=== PATIENT | male | born 1940 | race Caucasian/White ===

== ENCOUNTER 2017-03-18 04:58 | Inpatient (IN) ==
[2017-03-10 14:59] LABS: Blood Urea Nitrogen 15 mg/dl (8-23)
[2017-03-10 15:01] LABS: Appearance,Urine CLEAR; Bilirubin,Urine NEG (NEG); Color,Urine YELLOW; Glucose,Urine (UA) NEGATIVE (NEG); Leukocyte Esterase,Urine NEG /uL (NEG); Nitrate,Urine NEG (NEG); Protein,Urine NEG (NEG); Specific Gravity,Urine 1.017 (1.000-1.035); Urine Blood NEG mg/dL (<0.03); Urobilinogen,Urine NEG (NEG)
[2017-03-10 15:47] LABS: Basophils # (Auto) 0 K/mcL (0.0-0.3); Basophils % (Auto) 0.4 % (0.0-2.0); Eosinophils # (Auto) 0.1 K/mcL (0.0-0.7); Eosinophils % (Auto) 0.9 % (0.0-7.0); Granulocytes % (Auto) 49.2 % (38.0-78.0); Lymphocytes # (Auto) 1.6 K/mcL (1.5-4.8); Lymphocytes % (Auto) 26.9 % (15.5-49.0); Mean Corpuscular HGB Conc 33.9 g/dL (31.0-36.0); Mean Corpuscular Hemoglobin 31.2 pg (26.0-34.0); Monocytes # (Auto) 1.3 K/mcL (0.1-0.9); Monocytes % (Auto) 22.6 % (1.0-12.0); Platelet Count 137 K/mcL (140-440); RBC 4.23 M/mcL (4.50-5.90)
[2017-03-18] MEDS ORDERED: CELECOXIB 200 MG CAPSULE PO SCH (06:00)
[2017-03-18] MEDS ORDERED: ACETAMINOPHEN 500 MG TABLET PO SCH (06:00)
[2017-03-18] MEDS ORDERED: oxyCODONE 10 MG TAB.ER.12H PO SCH (06:00)
[2017-03-18] MEDS ORDERED: PREGABALIN 75 MG CAPSULE PO SCH (06:00)
[2017-03-18] MEDS ORDERED: KETOROLAC 30 MG, ROPIVACAINE HCL/PF 49.5 ML, EPINEPHrine 0.5 MG, 0.9 % SODIUM CHLORIDE ... IJ ONE (07:00)
[2017-03-18] MEDS: ceFAZolin 1 GM VIAL IV SCH ×4 (07:33→23:05)
[2017-03-18] MEDS ORDERED: MIDAZOLAM 5 MG/5 ML VIAL IV ONE (07:45)
[2017-03-18] MEDS ORDERED: ePHEDrine 50 MG/ML AMPUL IV ONE (07:45)
[2017-03-18] MEDS ORDERED: LIDOCAINE HCL/PF 100 MG/5 ML SYRINGE IV ONE (07:45)
[2017-03-18] MEDS ORDERED: ONDANSETRON 4 MG/2 ML VIAL IV ONE (07:45)
[2017-03-18] MEDS ORDERED: fentaNYL 100 MCG/2 ML VIAL IV ONE (07:45)
[2017-03-18] MEDS ORDERED: ROPIVACAINE HCL/PF 20 ML VIAL IJ ONE (07:45)
[2017-03-18] MEDS ORDERED: TRANEXAMIC ACID 1,000 MG/10 ML VIAL IV ONE ×2 (07:45→09:56)
[2017-03-18] MEDS ORDERED: PROPOFOL 200 MG/20 ML VIAL IV ONE (07:45)
[2017-03-18] MEDS ORDERED: DEXAMETHASONE 10 MG/ML VIAL IV ONE (07:45)
[2017-03-18] MEDS ORDERED: GLYCOPYRROLATE 0.2 MG/ML VIAL IV ONE (07:45)
[2017-03-18] MEDS ORDERED: fentaNYL 100 MCG/2 ML VIAL IV PRN (09:38)
[2017-03-18] MEDS ORDERED: MEPERIDINE 25 MG/ML SYRINGE IV PRN (09:38)
[2017-03-18] MEDS ORDERED: BENZOCAINE/MENTHOL 1 LOZENGE PO PRN ×2 (09:38→09:56)
[2017-03-18] MEDS ORDERED: METHOCARBAMOL 1,000 MG/10 ML VIAL IV PRN (09:38)
[2017-03-18] MEDS ORDERED: IPRATROPIUM/ALBUTEROL 3 ML AMPUL.NEB NEB PRN (09:38)
[2017-03-18] MEDS ORDERED: FLUMAZENIL 0.1 MG/ML ML IV PRN (09:38)
[2017-03-18] MEDS ORDERED: ONDANSETRON 4 MG/2 ML VIAL IV PRN ×2 (09:38→09:56)
[2017-03-18] MEDS ORDERED: NALOXONE HCL 0.4 MG/ML VIAL IV PRN (09:38)
[2017-03-18] MEDS ORDERED: diphenhydrAMINE 50 MG/ML VIAL IV PRN (09:38)
[2017-03-18] MEDS ORDERED: LACTATED RINGERS 250 ML IV PRN (09:38)
[2017-03-18] MEDS ORDERED: HYDROmorphone 2 MG/ML SYRINGE IV PRN (09:38)
[2017-03-18] MEDS ORDERED: LACTATED RINGERS 1,000 ML IV SCH (09:45)
[2017-03-18] MEDS ORDERED: POLYETHYLENE GLYCOL 3350 17 GM PACKET PO PRN (09:56)
[2017-03-18] MEDS ORDERED: FLEETS ADULT ENEMA PR PRN (09:56)
[2017-03-18] MEDS ORDERED: MAGNESIUM HYDROXIDE 30 ML ORAL.SUSP PO PRN (09:56)
[2017-03-18] MEDS ORDERED: BISACODYL 10 MG SUPP.RECT PR PRN (09:56)
--- NOTE | 2017-03-18 09:57 | Brief Operative Note ---
Date of procedure: 03/18/17 Pre-op diagnosis: Left knee severe DJD Post-op diagnosis: same Procedure: Left robotic assisted total knee arthroplasty Grafts/Implants: Yes ([place] Triathlon PS 5 femur, 5 tibia, 9mm PS femur) Anesthesia: spinal Findings: arthritis Complications: none Surgeon: Zackary Baer Orthotics Prosthetics Assistant: Harish Pagan Estimated blood loss (cc): 30 Specimens Removed/Pathology: none sent Condition: stable Disposition: PACU
--- NOTE | 2017-03-18 10:47 | XRay Report ---
CLINICAL INFORMATION: Postsurgical follow-up TECHNIQUE: AP, lateral, patellar view COMPARISON: None. FINDINGS: Status post left total knee arthroplasty. Femoral and tibial complements are in anatomic positions. There is postsurgical soft tissue and intra-articular gas IMPRESSION: Status post left total knee arthroplasty Interpreted and Authenticated by: Dallas Dyer 03/18/17
[2017-03-18] MEDS: 0.9 % SODIUM CHLORIDE 10 ML SYRINGE IV SCH (12:24)
[2017-03-18] MEDS: KETOROLAC 30 MG/ML VIAL IV SCH ×2 (12:31→16:57)
[2017-03-18] MEDS: 0.9 % SODIUM CHLORIDE 1,000 ML IV SCH (12:32)
[2017-03-18] MEDS: DOCUSATE SODIUM 100 MG CAPSULE PO SCH (20:41)
[2017-03-18] MEDS: ASPIRIN 325 MG ENTERIC COATED TABLET PO SCH (20:41)
[2017-03-18] MEDS ORDERED: SENNOSIDES 1 TABLET PO SCH (21:00)
[2017-03-18] MEDS: HYDROcodone/APAP 10/325MG TABLET PO PRN (21:53)
[2017-03-19] MEDS: 0.9 % SODIUM CHLORIDE 1,000 ML IV SCH ×2 (00:59→05:56)
[2017-03-19] MEDS: 0.9 % SODIUM CHLORIDE 10 ML SYRINGE IV SCH ×2 (01:01→05:56)
[2017-03-19] MEDS: KETOROLAC 30 MG/ML VIAL IV SCH ×2 (01:11→05:49)
[2017-03-19] MEDS: HYDROcodone/APAP 10/325MG TABLET PO PRN ×2 (05:54→10:39)
--- NOTE | 2017-03-19 08:40 | Discharge Summary ---
Ortho Discharge - TKA - Patient Instructions Diet: Regular Diet Activity: activity as tolerated, weight bearing as tolerated Total Knee Protocol: For Total Knee: Start ROM KAYCEE with stationary bike or rocking chair. Work on gaining full extension of knee. Posterior dislocation precautions provided. Hip abductor strengthening and gait training instructions provided. Apply Cryocuff as instructed. Dressing Care: May shower in 2 days, Aquacel Ag - leave on for 5 days Patient Education: Total Knee Replacement (DC) Additional Instructions: Discharge Instructions: Do the exercises at home that physical therapy gave you. You are scheduled to start physical therapy at [facility] ([phone]) on at 10:30 am, please arrive 15 minutes prior for paperwork. Take your prescription, photo ID, insurance cards, and current medication list with you to your first physical therapy appointment. Take your prescription to potato picker any medication or equipment (such as walker, crutches, toilet riser or C.P.M.) Wear comfortable clothing for your physical therapy. Weight bearing as tolerated. You have the Aquacel Ag dressing, leave in place for 7 days then remove. If dressing becomes soiled (turns black), remove and use gauze 4x4 dressing and silvasorb ointment and change daily. Keep incision clean and dry. You may start showering on post op day #2. To avoid constipation while taking any narcotic pain medication, take an over the counter stool softener/laxative. Use your Cryocuff or ice packs as directed, on for 20 minutes at a time throughout the day. This and elevation will help with pain and swelling. Call your physician for fevers above 100.5 or pain not controlled by medication. Your prescriptions are with your discharge information. Some medications were electronically transmitted to your pharmacy of choice. - Follow Up Plan Follow Up Appointments: Zackary Baer MD [Physician] - 03/28/17 2:20 pm Disposition: Home, Self-Care Prognosis: Good Rehab Potential: Good - Orders For Discharge Additional Discharge Orders: Physical Therapy at Discharge - TKA Location: Determined By Patient Toilet Riser Discharge Order Location: Determined By Patient Walker Location: Determined By Patient
[2017-03-19] MEDS ORDERED: MULTIVIT,THER IRON,CA,FA & MIN 1 TABLET PO SCH (09:00)
[2017-03-19] MEDS: ASPIRIN 325 MG ENTERIC COATED TABLET PO SCH (09:05)
[2017-03-19] MEDS: DOCUSATE SODIUM 100 MG CAPSULE PO SCH (09:06)
--- NOTE | 2017-03-19 09:39 | Discharge Summary ---
Providers - Providers Patient information: Note initiated : 03/19/17 at 9:37 am Service Date, if different from initiated Date: [] Patient: Roland Middleton 76 y/o M admitted on 03/18/17 for Left Total Knee Arthroplasty with Paul Robot. Chief Complaint: [POD #1] Patient doing well, no complaints. Ready for d/c Discharge date: 03/19/17 Hospitalization Hospital course: Patient was admitted day of procedure, underwent right TKA, was admitted overnight for pain control. Discharge to home today with ASA for DVT prophylaxis and pain meds for pain control. Discharge diagnosis: knee osteoarthritis Exam - Exam Incision healing: Yes Clean and dry: Yes Weight bearing status: as tolerated Ortho Discharge - TKA - Patient Instructions Diet: Regular Diet Activity: activity as tolerated, weight bearing as tolerated Total Knee Protocol: For Total Knee: Start ROM KAYCEE with stationary bike or rocking chair. Work on gaining full extension of knee. Posterior dislocation precautions provided. Hip abductor strengthening and gait training instructions provided. Apply Cryocuff as instructed. Patient Education: Total Knee Replacement (DC) Additional Instructions: Discharge Instructions: Do the exercises at home that physical therapy gave you. You are scheduled to start physical therapy at [facility] ([phone]) on at 10:30 am, please arrive 15 minutes prior for paperwork. Take your prescription, photo ID, insurance cards, and current medication list with you to your first physical therapy appointment. Take your prescription to poultry picking machine tender any medication or equipment (such as walker, crutches, toilet riser or C.P.M.) Wear comfortable clothing for your physical therapy. Weight bearing as tolerated. You have the Aquacel Ag dressing, leave in place for 7 days then remove. If dressing becomes soiled (turns black), remove and use gauze 4x4 dressing and silvasorb ointment and change daily. Keep incision clean and dry. You may start showering on post op day #2. To avoid constipation while taking any narcotic pain medication, take an over the counter stool softener/laxative. Use your Cryocuff or ice packs as directed, on for 20 minutes at a time throughout the day. This and elevation will help with pain and swelling. Call your physician for fevers above 100.5 or pain not controlled by medication. Your prescriptions are with your discharge information. Some medications were electronically transmitted to your pharmacy of choice. - Follow Up Plan Follow Up Appointments: Zackary Baer MD [Physician] - 03/28/17 2:20 pm Disposition: Home, Self-Care Prognosis: Good Rehab Potential: Good - Orders For Discharge Prescriptions: Aspirin [Ecotrin] 325 mg PO BID #28 tab.ec HYDROcodone/APAP 10/325MG [Man 10/325Mg] 1 - 2 tab PO Q4H PRN #90 tablet PRN Reason: Pain Additional Discharge Orders: Physical Therapy at Discharge - TKA Location: Determined By Patient Toilet Riser Discharge Order Location: Determined By Patient Walker Location: Determined By Patient Pending Studies Resuscitation Status Full Code Diet Regular Diet Start TueMar 18 Lunch Hydrocodone Bitart/Acetaminophen (Man 10/325mg) 0 tab PO Q4HP PRN PRN Reason: Pain Last Admin: 03/19/17 05:54 Dose: 1 tab Admin: 03/18/17 21:53 Dose: 1 tab Aspirin (Ecotrin) 325 mg PO BID [facility] Last Admin: 03/19/17 09:05 Dose: 325 mg Admin: 03/18/17 20:41 Dose: 325 mg Docusate Sodium (Colace) 100 mg PO BID [facility] Last Admin: 03/19/17 09:06 Dose: 100 mg Admin: 03/18/17 20:41 Dose: 100 mg Sodium Chloride (Sodium Chloride 0.9%) 1,000 mls @ 100 mls/hr IV .Q10H [facility] Last Admin: 03/19/17 05:56 Dose: Admin: 03/19/17 00:59 Dose: Not Given Infusion: 03/19/17 00:58 Dose: 100 mls/hr Admin: 03/18/17 12:32 Dose: 100 mls/hr Iron Carb/Multivit/[place]/Folic Acid (Multivitamin W/Minerals) 1 tab PO DAILY [facility] Last Admin: 03/19/17 09:05 Dose: 1 tab Ketorolac Tromethamine (Toradol) 30 mg IV Q6 [facility] Stop: 03/20/17 06:01 Last Admin: 03/19/17 05:49 Dose: 30 mg Admin: 03/19/17 01:11 Dose: 30 mg Admin: 03/18/17 16:57 Dose: 30 mg Admin: 03/18/17 12:31 Dose: 30 mg Senna (Senokot) 2 tab PO HS [facility] Last Admin: 03/18/17 20:41 Dose: 2 tab Sodium Chloride (Saline Flush) 10 ml IV Q8 [facility] Last Admin: 03/19/17 05:56 Dose: 10 ml Admin: 03/19/17 01:01 Dose: Not Given Admin: 03/18/17 12:24 Dose: Not Given Shift Summary 03/19/17 03:08 Shift Summary by Dolly Nguyen A/O x4. Very cooperative and pleasant. Pt admitted on 03/18 for L TKA with paul robotic. IV in LFA is saline locked inbetween scheduled toradol. Dressing to L knee is CDI. +1 edema noted around the L ankle, pedal pulses are equal bilaterally, cap refill <3 sec. He is up with SBA and FWW. Very steady while standing/walking. He got up to BR twice this shift and ambulated in hallway x1. Bladder scanned after both voids. First scan ranged from 225-280ml after small unmeasured void. Possible chronic retention d/t hx of prostate cancer/ prostatectomy. Pt's second void was a large unmeasured amt and scan showed 0 ml residual. Pt reported pain during ambulating, so gave 1 tab Man x1 with very good results. D/t urinary frequency and occasional incontinence pt wears his own pad inside disposable underwear. VSS with sinus bradycardia. Initialized on 03/19/17 03:08 - END OF NOTE
[2017-03-19] MEDS ORDERED: FLU VACC QS2017-18 36MOS UP/PF 60 MCG/0.5 ML SYRINGE IM ONE (10:00)
--- NOTE | 2017-03-21 09:51 | Operative Note ---
DATE OF OPERATION: 03/18/2017 PREOPERATIVE DIAGNOSIS: Left knee advanced tricompartmental osteoarthritis. POSTOPERATIVE DIAGNOSIS: Left knee advanced tricompartmental osteoarthritis. PROCEDURE PERFORMED: Left robotic-assisted total knee arthroplasty placing a [place] triathlon posterior stabilized size 5 femoral component, size 5 tibial baseplate with a 9 mm X3 tibial insert and a 36 mm patellar button. SURGEON: Zackary Baer MD. TRANSPORT OPERATIONS INSPECTOR: Phil Pagan PA-C. ANESTHESIA: Spinal plus general. DRAINS: None. SPECIMENS: Bone cuts, which were discarded. BLOOD LOSS: 30 mL POSTOPERATIVE CONDITION: Stable. INDICATIONS FOR SURGERY: This is a 76-year-old male who has had longstanding progressive worsening left knee pain and radiographs showed advanced multi-compartment osteoarthritis. He had previous right total knee arthroplasty done by me with good result. FINDINGS AT SURGERY: There was severe tricompartmental arthrosis. Post implantation showed good limb alignment, stability, and patellar tracking. PROCEDURE IN DETAIL: The patient had been seen preoperatively. Informed consent had been obtained after discussion of risks and benefits of surgery. Risks including, but not limited to, bleeding, possibly requiring transfusion; infection, possibly requiring implant removal and prolonged IV antibiotics; injury to nerves, blood vessels, and other surrounding structures; anesthetic risks; incomplete or no resolution of symptoms; stiffness, pain, swelling, instability clunking; DVT and pulmonary embolus risks; and the possibility of needing further surgery. He understood these risks and wished to proceed. Correct operative site was marked and the patient was taken to the operating room. General anesthesia was induced after receiving a spinal in preoperative holding. The left lower extremity was then carefully prepped and draped in normal sterile fashion and a time-out was performed verifying patient name, operative site, and plan. Esmarch was used to exsanguinate the extremity and tourniquet was inflated. A midline incision was made with a scalpel through skin and subcutaneous tissue and then a medial parapatellar arthrotomy made. IrriSept was irrigated prior to making arthrotomy. Subperiosteal exposure was done of the anterior medial tibia and distal anterior cortex of the femur. ACL was absent. Retropatellar fat pad was excised as were the anterior horns of the menisci, what was remaining. We then made two stab incisions over the femur and two over the tibia and bicortical pins were placed and the arrays connected to these. We then placed our femoral and tibial checkpoints. We then checked our hip center of rotation, as well as used the green probe for setting medial and lateral malleoli. We double checked our femoral and tibial checkpoints with the green probe and then a blue probe was used to mapping. Once this was completed, we removed osteophytes and then did our ligament balancing. It did require 3 degrees of varus on the tibia and 3 on the femur to get our flexion and extension gaps approximately even. Once we liked our position we then used the robotic arm to make our bone cuts. Once this was completed, we prepared our tibia with the boss reamer and keel punch. Posterior osteophytes were removed with a curved osteotome and curet. We then placed the box cutting jig onto the femur and then used the saw to cut our box. Femoral trial was placed. We drilled peg holes and then 9 trial insert was placed. This was very good stability and the knee was able to come into full extension. We then prepared our patella freehand technique and were within a millimeter of his [place] patellar height with our patellar cut and prosthetic, which we checked. This was medialized maximally and holes were drilled and then the definitive implants were opened. IrriSept was irrigated. After a minute pulse lavage was used and then the CO2 gun was used to clean the cancellous surfaces. The medial tibia was drilled with multiple small drill holes as this was very sclerotic to aid in cement interdigitation. Antibiotic cement was mixed. We cemented the tibia followed by the femur. Excess cement was removed and the tibial trial insert was placed. The knee was taken into extension and again excess cement was removed. Patellar button was cemented. The joint was filled with IrriSept. While cement was hardening, we injected pain cocktail in the pericapsular and subcutaneous tissues. Once cement had hardened, we flexed the knee up and did a final removal of cement and then posterior capsule was injected with pain cocktail and then the definitive 9 insert was opened. IrriSept was irrigated and then the insert was impacted. We then filled the joint with IrriSept, waited a minute and after that, pulse lavaged again. We then placed the knee in about 30 degrees of flexion. Interrupted [id number] #2 FiberWires were used around the superior quadrant, #1 Vicryl [id number] were used around the inferior quadrant and running #1 Vicryl was used for patellar tendon and quad tendon. Final IrriSept irrigation was done, and after a minute final pulse lavage. Next, 2-0 Monocryl was used for subcutaneous and earnestine for skin. Check points had been removed prior to closure. We also then removed our femoral and tibial pins. IrriSept was irrigated and earnestine were used to close these. Xeroform and sterile dressings were applied. Tourniquet was released. The patient was then awakened, extubated, and transferred to recovery in stable condition. LANETTE:tiffany Job ID: [id number] Doc ID: [id number] Zackary Baer MD
== END 2017-03-19 11:00 | disposition home or self-care (01) | DRG 470 ==
LOC: MEDSUR 04:58
PROVIDERS: ADMIT Orthopaedic Surgery; ATTEND Orthopaedic Surgery

== ENCOUNTER 2020-08-29 13:38 | Inpatient (IN) ==
--- NOTE | 2020-08-29 14:11 | Emergency Department Note ---
Abdominal Pain HPI General Chief Complaint: Abdominal Pain Stated Complaint: Small bowel/ abd pain Time Seen by Provider: 08/29/20 13:53 Source: patient Mode of arrival: ambulatory Limitations: no limitations History of Present Illness HPI Narrative: Narrative: Patient was seen this morning at [facility]; small bowel obstruction on x-ray with elevated white count of 24,000. I was called by Nathaniel saucedo, who saw the patient there. He apparently spoke with Dr. Mandujano, surgeon who requested the patient be sent here. Patient described this being the third day of his abdominal pain. His last bowel movement was 2 days ago. There is associated nausea and poor oral intake. He also vomited about twice 2 days ago and 3 days ago in the evenings. No blood that he knows of but it was a bit dark. He is experiencing some back pain which he attributes to the bloating and these recent symptoms but not previously. He has felt hot a lot but no sweats or chills or fevers. He feels a little bit short of breath but he attributes this due to the bloating. He denies hematochezia or melena. He does have some urinary frequency but no dysuria. The frequency and urgency and some incontinence are some chronic and he attributes this to previous prostate surgery. No prior history of small bowel obstruction. He did have diverticulitis once in the past. He is a former smoker remotely. His alcohol intake is rare. He is immunocompromise being on Arava (leflunomide) and prednisone both for rheumatoid arthritis. Related Data Previous Rx's Medication Instructions Recorded leflunomide 20 mg tablet 20 mg PO QDAY #90 tab 06/09/20 prednisone 5 mg tablet 5 mg PO QDAY #60 tab 06/09/20 Allergies Allergy/AdvReac Type Severity Reaction Status Date / Time No Known Drug Allergies Allergy Verified 08/29/20 13:38 Review of Systems ROS ROS Narrative: Narrative: Mild generalized weakness. Does bruise easy but not for no reason. 12 Systems Reviewed - negative except as mentioned above. PFSH Narrative Patient History Narrative: Narrative: Denies: NC, renal disease, DVT, PE, PUD, TIA, CVA, anxiety, depression. 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) CRP elevated (Acute) Encounter for long-term (current) use of high-risk medication (Acute) ESR raised (Acute) Polyarthralgia (Acute) Rheumatoid nodules (Acute) Olecranon bursitis (Chronic) Thrombocytopenia (Chronic) Anemia (Acute) Diffuse large b-cell lymphoma, extranodal and solid organ sites (Chronic) Malignant neoplasm of prostate (Chronic) Monocytosis (symptomatic) (Chronic) Rheumatoid arthritis (Acute) Medical History (Updated 08/29/20 @ 17:11 by Michel Kaplan DO) Anemia CRP elevated Dermatitis Diffuse large b-cell lymphoma, extranodal and solid organ sites Encounter for long-term (current) use of high-risk medication ESR raised History of pneumonia 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 Malignant neoplasm of prostate Monocytosis (symptomatic) Olecranon bursitis Polyarthralgia Rheumatoid arthritis Rheumatoid nodules SBO (small bowel obstruction) Thrombocytopenia Trigger finger Surgical History (Updated 08/29/20 @ 14:26 by Michel Kaplan DO) History of abdominal prostatectomy History of bone marrow biopsy (11/09/18) History of colonoscopy History of esophagogastroduodenoscopy (EGD) History of shoulder surgery Right History of total bilateral knee replacement Hx of eye surgery Glass eye, right since quite young Family History No pertinent family history Social History Smoking Status: Former smoker Exam Narrative Narrative: Narrative: General Limitations: no limitations General appearance: Present alert, in no apparent distress, nontoxic and other (Was able to ambulate on his own. Ambulation was moderate as far as stability and speed.) Head Head: Present atraumatic and normocephalic Eye Eye: Present other (Slight asymmetry of gaze with the right being immobile. It is a glass eye. Left pupil is reactive and unremarkable.) ENT ENT: Present normal oropharynx and mucous membranes moist Neck Neck: Present trachea midline; Absent lymphadenopathy and thyromegaly Chest Chest: Present symmetric chest wall rise Respiratory Respiratory: Present normal lung sounds bilaterally; Absent respiratory distress, rales/crackles, wheezes, stridor, accessory muscle use and prolonged expiratory phase Cardiovascular Cardiovascular: Present regular rate and normal rhythm; Absent systolic murmur and diastolic murmur Adbominal Abdominal: Present soft, distention (Moderate) and tenderness; Absent guarding, rebound, rigidity, organomegaly, trauma, Silvestre's sign, tenderness at McBurney's Point and mass Expanded Abdominal Abdominal Tenderness: Present diffuse and mild Extremities Extremities: Absent pedal edema, pretibial edema, calf tenderness and cyanosis Back Back: Absent CVA tenderness (R), CVA tenderness (L) and spinous process tenderness Neurological Neurological: Present alert and oriented X3 Psychiatric Psychiatric: Present normal affect, polite and pleasant; Absent depressed, agitated, anxious and poor eye contact Skin Skin: Present warm (WNL) and dry; Absent cyanosis and pallor Course Vital Signs Vital signs: Vital Signs Temperature 96.8 F L 08/29/20 13:38 Pulse Rate 116 H 08/29/20 13:38 Respiratory Rate 16 08/29/20 13:38 Blood Pressure 154/117 08/29/20 13:38 Pulse Oximetry (%) 98 08/29/20 13:38 Temperature 96.8 F L 08/29/20 13:38 Pulse Rate 85 08/29/20 16:49 Respiratory Rate 16 08/29/20 13:38 Blood Pressure 141/100 08/29/20 16:49 Pulse Oximetry (%) 92 08/29/20 16:49 [facility] MDM Narrative Medical decision making narrative: Narrative: 13:57 PM - interviewed and examined. Patient being sent from [facility] due to diagnosis of SBO, elevated white blood cell of 24,000. I had received a call from them regarding this. Probable admission. Will obtain previous labs and x- ray report. Previous records include abdominal films "small bowel obstruction 2 views of the abdomen and pelvis show multiple abnormally dilated gas-filled loops of small bowel. Multiple air-fluid levels are seen as well. I do not see free air. No mass or mass-effect. Postoperative changes are seen in the pelvis." White count 24.0 with 67% neutrophils 24% monocytes. CMP with normal electrolytes. Anion gap 20.0 mildly elevated but bicarb is normal at 24.6. Glucose 147. BUN 31, creatinine 1.42. LFTs in normal range, alkaline phos 67, bilirubin 0.8. With patient having some degree of shortness of breath it is probably due to some of the bloating but with his age and circumstance we will add a BNP, troponin, EKG. Patient would like a pain medication with nausea medication. His CODE STATUS is DNR; he says that there should be documentation present in this facility's records for this. 4:15 PM - CT results: 1. 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 Small amount of free fluid in the perihepatic and deep true pelvis is suggestive of third spacing. No evidence of perforation. 2. Mild (3 cm) fusiform infrarenal abdominal aortic aneurysm. Suggest abdominal ultrasound in one year. 3. Moderate air in the intrahepatic, common hepatic and common bile ducts compatible prior papillotomy. 4. Sigmoid diverticulosis - no evidence of diverticulitis Additional labs include BNP 1715 Lipase 34 CRP 0.50 Troponin <0.[address] Mandujano, general surgeon. 4:30 PM approximately - I spoke with Dr. Bridger Mandujano, surgeon, who is willing to admit this patient. Nasogastric tube to be placed. Admitting orders/transition orders are being written by myself. He will see patient this evening. Patient's CODE STATUS is DNR per his instruction/request. Dr. Mandujano is aware of patient's immunocompromised status. Thrombocytopenia is chronic, mild and not likely to interfere with surgical intervention, i.e. usually in the range of 100-125. Today he is 118. Lab Data Labs: Lab Results 08/29/20 08/29/20 Range/Units 14:26 14:26 Troponin T < 0.01 (<0.03) ng/mL C-Reactive Protein 0.50 (0.03-0.80) mg/dL NT-Pro-B Natriuret Pep 1715.0 H (<450.0) pg/mL Lipase 34 (7-60) U/L Discharge Plan Patient/Caregiver Discharge Instructions Pt seen by PARKING LOT ATTENDANT AND CASHIER/PA only: No Clinical Impression: SBO (small bowel obstruction), Immunosuppressed status Patient Disposition: Xfer As Inpt ([facility]) Follow up with: Leyla Young MD [Primary Care Provider] - Prescriptions: No Action prednisone 5 mg tablet 5 mg PO QDAY Qty: 60 RF: 1 leflunomide 20 mg tablet 20 mg PO QDAY Qty: 90 RF: 1
[2020-08-29] MEDS ORDERED: ONDANSETRON 4 MG/2 ML VIAL IV ONE (14:20)
[2020-08-29] MEDS: HYDROmorphone 0.5 MG/0.5 ML SYRINGE IV PRN ×2 (14:28→16:23)
--- NOTE | 2020-08-29 15:46 | Cat Scan Report ---
CLINICAL INFORMATION: Abdominal pain and bloating. Elevated white blood cell count. Evaluate for small bowel obstruction COMPARISON: None. TECHNIQUE: 0.625 mm helical slices were obtained from the mid heart through the subtrochanteric regions. Following reconstruction, 2.5 mm sagittal, coronal and axial reformatted images were processed and reviewed at bone and soft tissue windows.The exam was performed using radiation dose optimization techniques including, but not limited to, automated exposure control, adjustment of the mA and/or kV according to patient size and use of iterative reconstruction technique. FINDINGS: Lung bases show scattered subpulmonic bullae and scarring. There is atelectasis in the posterior lower lobes. No effusion. The heart is mildly enlarged with heavy calcific plaque in the visualized coronary arteries. Abdominal images show cholecystectomy changes. The intrahepatic, common hepatic and common bile ducts are normal in caliber. Moderate intraductal air is compatible prior papillotomy. Pancreatic duct is slightly dilated 3 mm: the pancreas is, otherwise, normal. 2.8 cm simple cyst lateral right kidney noted. There is also a 2 cm cyst lateral left kidney. No significant renal lesion. The adrenal glands, spleen and pancreas are normal. Mild fusiform infrarenal abdominal aortic aneurysm with a maximal diameter 3 cm appreciated. Images should the pelvis show prostate has been surgically removed. Urinary bladder is normal. Lytic The stomach, duodenum, jejunum and ileum are moderately dilated due to high-grade terminal ileal stricture. The colon is completely decompressed. Small amount of free fluid in the perihepatic and deep true pelvis region suggests third spacing. There is no free air is suggest perforation. Sigmoid diverticulosis appreciated no evidence of diverticulitis. Bone windows show no osseous abnormality. IMPRESSION: 1. 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 Small amount of free fluid in the perihepatic and deep true pelvis is suggestive of third spacing. No evidence of perforation. 2. Mild (3 cm) fusiform infrarenal abdominal aortic aneurysm. Suggest abdominal ultrasound in one year. 3. Moderate air in the intrahepatic, common hepatic and common bile ducts compatible prior papillotomy. 4. Sigmoid diverticulosis - no evidence of diverticulitis Interpreted and Authenticated by: Dallas Wylie 08/29/20
[2020-08-29] MEDS ORDERED: ONDANSETRON 4 MG/2 ML VIAL IV PRN (17:03)
--- NOTE | 2020-08-29 17:36 | Internal Medicine Consult Note ---
HPI Data of Consult Primary Care Provider: Leyla Young Consult Narrative Patient Information: Note initiated : 08/29/20 at 5:31 pm Service Date, if different from initiated Date: [] Patient: Roland Middleton 80 y/o M admitted on for Small bowel/ abd pain. Chief Complaint: [] Presents the ED after going to [facility] for small bowel obstruction. His abdominal pain started on Tuesday and described as crampy as well as sharp. Last bowel movement was on Tuesday said was soft. Had an episode nausea vomiting other day. No fever chills or any other complaints. Work-up in the ED revealed high-grade distal small bowel obstruction Review of Systems: Pertinent positives above. Denies headache/fever/chills/chest pain/cough/dyspnea Otherwise see above. cc:: CC: PFSH PFSH All Active Problems (Updated 08/29/20 @ 17:11 by Michel Kaplan DO) Immunosuppressed status (Acute) SBO (small bowel obstruction) (Acute) Trigger finger (Acute) Dermatitis (Acute) FPC (current) use of systemic steroids (Acute) CRP elevated (Acute) Encounter for long-term (current) use of high-risk medication (Acute) ESR raised (Acute) Polyarthralgia (Acute) Rheumatoid nodules (Acute) Olecranon bursitis (Chronic) Thrombocytopenia (Chronic) Anemia (Acute) Diffuse large b-cell lymphoma, extranodal and solid organ sites (Chronic) Malignant neoplasm of prostate (Chronic) Monocytosis (symptomatic) (Chronic) Rheumatoid arthritis (Acute) Medical History (Updated 08/29/20 @ 17:11 by Michel Kaplan DO) Anemia CRP elevated Dermatitis Diffuse large b-cell lymphoma, extranodal and solid organ sites Encounter for long-term (current) use of high-risk medication ESR raised 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 Malignant neoplasm of prostate Monocytosis (symptomatic) Olecranon bursitis Polyarthralgia Rheumatoid arthritis Rheumatoid nodules SBO (small bowel obstruction) Thrombocytopenia Trigger finger Surgical History (Updated 08/29/20 @ 14:26 by Michel Kaplan DO) History of abdominal prostatectomy History of bone marrow biopsy (11/09/18) History of colonoscopy History of esophagogastroduodenoscopy (EGD) History of shoulder surgery Right History of total bilateral knee replacement Hx of eye surgery Glass eye, right since quite young Family History Other No pertinent family history Social History marital status: smoking status: Former smoker MEDS/ALLERGIES Home Medications and Allergies Home Medications Medication Instructions Recorded Confirmed Type leflunomide 20 mg tablet 20 mg PO QDAY #90 tab 06/09/20 08/29/20 Rx prednisone 5 mg tablet 5 mg PO QDAY #60 tab 06/09/20 08/29/20 Rx Allergies Allergy/AdvReac Type Severity Reaction Status Date / Time No Known Drug Allergies Allergy Verified 08/29/20 13:38 EXAM Constitutional Vitals: Temp Pulse Resp BP Pulse Ox 96.8 F L 90 16 137/93 92 08/29/20 13:38 08/29/20 17:11 08/29/20 13:38 08/29/20 17:11 08/29/20 17:11 Exam: General: Alert, Awake, No acute Distress Eyes/N/T: EOMI, right eye blind Head/Neck: neck supple, normocephalic atraumatic CV: RRR, No murmurs, normal s1/s2 Pulm: Clear b/l, no wheezing/rhonchi/rales Abd: soft, mild generalized tenderness, distended Ext: no clubbing/cyanosis/edema Neuro: Alert, no focal deficits, moves all extremities, CN 2-12 grossly intact, symmetrical strength b/l upper/lower, sensations intact b/l upper/lower Skin: warm/dry DATA Data Completed and Pending Labs: Labs from last 24 hours 08/29/20 08/29/20 14:26 14:26 Troponin T < 0.01 C-Reactive Protein 0.50 NT-Pro-B Natriuret Pep 1715.0 H Lipase 34 A/P Narrative A/P Narrative: A: *SBO *RA: Follows Dr. Jacinto -Is on leflunomide and prednisone *Chronic mild thrombocytopenia: *Anemia, chronic: P: -Small bowel obstruction per surgeon -Diet per surgeon -Continue home leflunomide and prednisone -ambulation Time Spent With Patient Time: Total time spent is greater than 50% in coordination of care (as documented) at patient's floor/unit and/or counseling patient:
--- NOTE | 2020-08-29 19:26 | General Surg History&Physical ---
HPI History of Present Illness Patient information: Note initiated : 08/29/20 at 7:22 pm Service Date, if different from initiated Date: [] Patient: Roland Middleton a 80 y/o M admitted on 08/29/20 for Small bowel/ abd pain. Chief Complaint: Patient was seen this morning at [facility]. Patient reports that he has had abdominal distention and 3 days of abdominal pain therefore he went into urgent care where work-up on plain films showed small bowel obstruction and elevated white count of 24,000. I was called by Nathaniel Amanda, who states the patient request to be transferred to [facility] for further care. Patient described this being the third day of his abdominal pain. His last bowel movement was 2 days ago. There is associated nausea and poor oral intake. He also vomited about twice 2 days ago and 3 days ago in the evenings. No blood that he knows of but it was a bit dark. He is experiencing some back pain which he attributes to the bloating and these recent symptoms but not previously. He has felt hot a lot but no sweats or chills or fevers. He feels a little bit short of breath but he attributes this due to the bloating. He denies hematochezia or melena. He does have some urinary frequency but no dysuria. The frequency and urgency and some incontinence are some chronic and he attributes this to previous prostate surgery. No prior history of small bowel obstruction. He did have diverticulitis once in the past. He is a former smoker remotely. His alcohol intake is rare. He is immunocompromise being on Arava (leflunomide) and prednisone both for rheumatoid arthritis. History of present illness: Mr. 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) CRP elevated (Acute) Encounter for long-term (current) use of high-risk medication (Acute) ESR raised (Acute) Polyarthralgia (Acute) Rheumatoid nodules (Acute) Olecranon bursitis (Chronic) Thrombocytopenia (Chronic) Anemia (Acute) Diffuse large b-cell lymphoma, extranodal and solid organ sites (Chronic) Malignant neoplasm of prostate (Chronic) Monocytosis (symptomatic) (Chronic) Rheumatoid arthritis (Acute) Medical History Anemia CRP elevated Dermatitis Diffuse large b-cell lymphoma, extranodal and solid organ sites Encounter for long-term (current) use of high-risk medication ESR raised 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 Malignant neoplasm of prostate Monocytosis (symptomatic) Olecranon bursitis Polyarthralgia Rheumatoid arthritis Rheumatoid nodules SBO (small bowel obstruction) Thrombocytopenia Trigger finger Surgical History History of abdominal prostatectomy History of bone marrow biopsy (11/09/18) History of colonoscopy History of esophagogastroduodenoscopy (EGD) History of shoulder surgery Right History of total bilateral knee replacement Hx of eye surgery Glass eye, right since quite young Family History Other No pertinent family history Social History marital status: smoking status: Former smoker MEDS/ALLERGIES Home Medications and Allergies Home Medications Medication Instructions Recorded Confirmed Type leflunomide 20 mg tablet 20 mg PO QDAY #90 tab 06/09/20 08/29/20 Rx prednisone 5 mg tablet 5 mg PO QDAY #60 tab 06/09/20 08/29/20 Rx Allergies Allergy/AdvReac Type Severity Reaction Status Date / Time No Known Drug Allergies Allergy Verified 08/29/20 13:38 Physical Examination Vital Signs Vital signs: Temp Pulse Resp BP Pulse Ox 96.8 F L 89 16 153/96 94 08/29/20 13:38 08/29/20 17:38 08/29/20 13:38 08/29/20 17:38 08/29/20 17:38 General physical appearance General physical exam: well developed, well nourished and no distress Eyes Eye exam: PERRL and normal ocular movement ENT ENT exam: normal pinna, normal nares, normal mucosa, no hearing loss and no congestion Head Head exam IM: Present atraumatic and normocephalic Neck Neck exam: no masses, no bruits, trachea midline, no lymphadenopathy and no venous distension Cardiovascular Cardiovascular exam IM: Present normal rate and rhythm Respiratory Respiratory exam: normal expansion, normal respiratory effort, clear to percussion and clear to auscultation Abdomen Abdomen: Present soft, non tender, bowel sounds and distended Hernia: Present none Genitourinary Genitourinary (Male): Present normal penis with no external lesions Rectum Rectum: Present normal sphincter tone, no hemorrhoids, no tenderness, no masses and no bleeding Integumentary Integumentary: Present no rash, no growths and no abnormal pigmentation Neurologic Neurologic: Present normal coordination and normal sensation Musculoskeletal Musculoskeletal: Present normal gait and normal posture Psychiatric Psychiatric: Present oriented to time, oriented to person, oriented to place, speech is normal and memory intact Results Labs Labs: Abnormal lab results 08/29/20 Range/Units 14:26 NT-Pro-B Natriuret Pep 1715.0 H (<450.0) pg/mL All other labs normal. A/P Assessment and plan (1) SBO (small bowel obstruction): Status: Acute Comment: This is a pleasant 80-year-old gentleman who presented with 3-day history of abdominal distention, nausea, emesis consistent with partial small bowel obstruction. He has a significant past surgical history for prostate cancer. CT scan is consistent with a partial small bowel obstruction, possible ileal stricture. Patient presents a significant surgical risk secondary to his chronic steroid use, will taper off his steroids at this time. Patient will be admitted, placed n.p.o., NG suction. Likely small bowel follow- through in the morning. Bridger Mandujano MD, FACS [facility] General Surgery [phone] Time Spent With Patient Time: Total time spent is greater than 50% in coordination of care (as documented) at patient's floor/unit and/or counseling patient:
[2020-08-29] MEDS: DOCUSATE SODIUM 100 MG CAPSULE PO SCH (21:14)
[2020-08-29] MEDS: SENNOSIDES 1 TABLET PO SCH (21:14)
[2020-08-29] MEDS: 0.9 % SODIUM CHLORIDE 10 ML SYRINGE IV SCH (21:15)
[2020-08-29] MEDS: 0.9 % SODIUM CHLORIDE 1,000 ML IV SCH (21:51)
[2020-08-30] MEDS: morphine 2 MG/ML VIAL IV PRN ×8 (01:08→22:19)
--- NOTE | 2020-08-30 03:06 | XRay Report ---
CLINICAL INFORMATION: NG placement COMPARISON: None. FINDINGS: NG tube overlies the gastric fundus. Stomach and multiple loops of jejunum are moderately dilated compatible partial distal small bowel obstruction. Small amount of gas seen within the colon. No free air IMPRESSION: NG tube overlies the gastric fundus. Nurses were instructed to advance the tube 10 cm. Partial distal small bowel obstruction Interpreted and Authenticated by: Dallas Wylie 08/30/20
[2020-08-30] MEDS: 0.9 % SODIUM CHLORIDE 10 ML SYRINGE IV SCH ×3 (04:02→21:50)
[2020-08-30] MEDS: 0.9 % SODIUM CHLORIDE 1,000 ML IV SCH ×2 (04:04→07:31)
[2020-08-30 06:23] LABS: Basophils # (Auto) 0.13 K/mcL (0.00-0.20); Basophils % (Auto) 0.3 % (0.0-2.0); Eosinophils # (Auto) 0.12 K/mcL (0.00-0.70); Eosinophils % (Auto) 0.2 % (0.0-7.0); Hematocrit 41.8 % (41.0-55.0); Hemoglobin 13.8 g/dL (13.5-16.5); Lymphocytes # (Auto) 1.38 K/mcL (1.50-4.80); Lymphocytes % (Auto) 2.7 % (15.0-49.0); Mean Cell Volume 89.1 fL (80.0-100.0); Mean Platelet Volume 13.1 fL (7.4-10.4); Monocytes # (Auto) 15.92 K/mcL (0.10-0.90); Monocytes % (Auto) 31.1 % (1.0-12.0); Neutrophils % (Auto) 65.7 % (38.0-78.0); Platelet Count 169 K/mcL (140-440); RBC 4.69 M/mcL (4.50-5.90); Red Cell Distribution Width 14.3 % (11.5-14.5); WBC 51.2 K/mcL (4.5-11.0)
[2020-08-30 06:31] LABS: ALT/SGPT 37 U/L (<40); AST/SGOT 26 U/L (<40); Albumin/Globulin Ratio 1.1 (1.0-2.3); Alkaline Phosphatase 71 U/L (39-117); Bilirubin,Direct < 0.2 mg/dL (<0.3); Bilirubin,Total 0.7 mg/dL (0.1-1.0); Blood Urea Nitrogen 38 mg/dL (8-23); Calcium 9.8 mg/dL (8.6-10.4); Carbon Dioxide 27 mmol/L (22-30); Chloride 95 mmol/L (96-108); Globulin 3.5 gm/dL (2.2-3.7); Glomerular Filtration Rate 47; Glucose 125 mg/dL (70-105); Lactate Dehydrogenase 334 U/L (135-225); Phosphorous 4.4 mg/dL (2.5-4.5); Triglycerides 75 mg/dL (<150); Uric Acid 7.5 mg/dL (2.5-8.0)
[2020-08-30 06:33] LABS: Blood Urea Nitrogen 38 mg/dL (8-23); Calcium 9.9 mg/dL (8.6-10.4); Carbon Dioxide 27 mmol/L (22-30); Chloride 96 mmol/L (96-108); Glomerular Filtration Rate 44; Glucose 126 mg/dL (70-105)
[2020-08-30 07:32] LABS: Hematocrit 42.4 % (41.0-55.0); Mean Cell Volume 88.1 fL (80.0-100.0); Mean Platelet Volume 12.5 fL (7.4-10.4); Platelet Count 170 K/mcL (140-440); RBC 4.81 M/mcL (4.50-5.90); Red Cell Distribution Width 14.3 % (11.5-14.5); WBC 59.2 K/mcL (4.5-11.0)
[2020-08-30] MEDS ORDERED: 0.9 % SODIUM CHLORIDE 500 ML IV ONE ×2 (08:05→16:13)
[2020-08-30] MEDS ORDERED: 0.9 % SODIUM CHLORIDE 1,000 ML IV SCH (08:06)
--- NOTE | 2020-08-30 08:08 | Internal Med Progress Note ---
SUBJECTIVE Subjective Patient information: Note initiated : 08/30/20 at 7:42 am Service Date, if different from initiated Date: [] Patient: Roland Middleton 80 y/o M admitted on 08/29/20 for Small bowel/ abd pain. Chief Complaint: [] Interval history: Presents the ED after going to [facility] for small bowel obstruction. His abdominal pain started on Tuesday and described as crampy as well as sharp. Last bowel movement was on Tuesday said was soft. Had an episode nausea vomiting other day. No fever chills or any other complaints. Work-up in the ED revealed high-grade distal small bowel obstruction 08/30 Patient's white blood cells were elevated at urgent care yesterday the double to 50 today. Patient states that his history of abnormal white blood cell counts and typically run high although I do not see that on our lab history. He is afebrile, nontoxic-appearing. He actually feels better since the drainage via the NG tube. And slept okay. He has not had any flatus or bowel movement since admission. Abdominal and back pain are little better. Review of Systems: denies headache/fever/chills/nausea/vomiting/chest pain/cough/dyspnea/diarrhea. Otherwise see above. Constitutional Vitals: Vital Signs Temp Pulse Resp BP Pulse Ox 97.9 F 109 H 18 123/82 91 08/30/20 07:13 08/30/20 07:13 08/30/20 07:13 08/30/20 07:13 08/30/20 07:13 Period Temp Pulse Resp BP Sys/Olson Pulse Ox Last 24 Hr 96.8 F-98.6 F 77-116 16-18 123-160/73-120 90-98 Intake and Output 08/29/20 08/30/20 08/30/20 21:59 05:59 13:59 Intake Total 0 0 812 Output Total 600 1277 Balance -600 -1277 812 Weight 76.657 kg Intake & Output: Intake & Output 08/29/20 08/30/20 08/30/20 21:59 05:59 13:59 Intake Total 0 0 812 Output Total 600 1277 Balance -600 -1277 812 Weight 76.657 kg Intake: IV 812 Sodium Chloride 0.9% 1,000 ml @ 812 84 mls/hr IV .[id number] [facility] Rx#: [id number] Tube Feeding 0 0 0 Output: Gastric Drainage 600 800 [place]-Sump 600 800 Void Amount 475 # of times incontinent of urine 2 Other: Urine Odor Strong Strong # Voids 1 Exam: General: Alert, Awake, No acute Distress Eyes/N/T: EOMI, right eye blind Head/Neck: neck supple, CV: RRR, No murmurs, Pulm: Clear b/l, no wheezing/rhonchi/rales Abd: soft, mild generalized tenderness, distended Ext: no clubbing/cyanosis/edema Neuro: Alert, no focal deficits, moves all extremities, Skin: warm/dry OBJ DATA Labs CBC & Chem 7: 08/30/20 06:44 08/30/20 05:10 Labs: Abnormal Lab Results 08/30/20 08/30/20 08/30/20 06:44 05:10 05:10 WBC 59.2 H* MPV 12.5 H Lymph % (Auto) Baker % (Auto) Lymph # (Auto) Baker # (Auto) Absolute Neutrophils Chloride 95 L BUN 38 H 38 H Creatinine 1.5 H 1.4 H Glucose 126 H 125 H Lactate Dehydrogenase 334 H NT-Pro-B Natriuret Pep 08/30/20 08/29/20 05:10 14:26 WBC 51.2 H* MPV 13.1 H Lymph % (Auto) 2.7 L Baker % (Auto) 31.1 H Lymph # (Auto) 1.38 L Baker # (Auto) 15.92 H Absolute Neutrophils 33.65 H Chloride BUN Creatinine Glucose Lactate Dehydrogenase NT-Pro-B Natriuret Pep 1715.0 H Meds: Medications Docusate Sodium (Docusate Sodium 100 Mg Capsule) 100 mg PO BID [facility] Last Admin: 08/29/20 21:14 Dose: Not Given Documented by: Sodium Chloride (Sodium Chloride 0.9%) 1,000 mls @ 84 mls/hr IV .[id number] [facility] Last Admin: 08/30/20 07:31 Dose: 84 mls/hr Documented by: Morphine Sulfate (Morphine 2 Mg/Ml Vial) 2 mg IV Q1HP PRN; Protocol PRN Reason: Chest Pain Last Admin: 08/30/20 07:31 Dose: 2 mg Documented by: Ondansetron HCl (Ondansetron 4 Mg/2 Ml Vial) 4 mg IV Q4HP PRN PRN Reason: Nausea And Vomiting Senna (Sennosides 1 Tablet) 2 tab PO HS [facility] Last Admin: 08/29/20 21:14 Dose: Not Given Documented by: Sodium Chloride (0.9 % Sodium Chloride 10 Ml Syringe) 10 ml IV Q8 [facility] Last Admin: 08/30/20 04:02 Dose: Not Given Documented by: A/P Narrative A/P Narrative: A: *pSBO: *Leukocytosis: 24k @urgent care, up to 50k. Pt states h/o elevated WBC although I do not see that on our old labs. 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 Jacinto -Is on leflunomide and chronic prednisone *Chronic mild thrombocytopenia: *Anemia, chronic: *h/o B-cell Lymphoma & Prostate CA with ongoing anemia/thrombocytopenia & monocytosis: -received chemotherapy and radical prostatectomy P: -Small bowel obstruction per surgeon -Diet per surgeon -IVF's increase -urine studies, renal u/s, bladder scan -awaiting man diff/smear. likely d/w rheumotologist vs [facility] [employer] -hold leflunomide -Continue prednisone (IV methylprednisolone while npo) -Ambulation -incidental AAA 3cm, f/u ultrasound in 1- year -ppx: SCD Time Spent With Patient Time: Total time spent is greater than 50% in coordination of care (as documented) at patient's floor/unit and/or counseling patient: QUALITY VTE Deep Vein Thrombosis/Pulmonary Embolism Present on Admission: No
[2020-08-30] MEDS: DEXTROSE 5%-NS 1,000 ML IV SCH ×2 (08:40→21:28)
[2020-08-30] MEDS: methylPREDNISolone SOD SUCC 40 MG/ML VIAL IV SCH (08:41)
[2020-08-30] MEDS ORDERED: predniSONE 5 MG TABLET PO SCH (09:00)
[2020-08-30 09:12] LABS: Band Neutrophils % 5 % (0-10); Lymphocytes % 3 % (15-49); Monocytes % (Manual) 25 % (1-12); Platelet Estimate NORMAL (Normal); RBC Morphology NORMAL (Normal); Reactive Lymphocytes 1 % (0-2); Segmented Neutrophils % 66 % (38-78)
[2020-08-30] MEDS: DOCUSATE SODIUM 100 MG CAPSULE PO SCH ×2 (09:12→21:29)
--- NOTE | 2020-08-30 09:52 | General Surgery Progress Note ---
SUBJECTIVE Subjective Patient information: Note initiated : 08/30/20 at 9:49 am Service Date, if different from initiated Date: [] Patient: Roland Middleton 80 y/o M admitted on 08/29/20 for Small bowel/ abd pain. Chief Complaint: Hospital day #2, admitted with partial small bowel obstruction, questionable ileal stricture. Patient has a significant past surgical history. He reports some hiccups denies any fever chills nausea, emesis, flatus or bowel movements. He has been ambulatory, has minimal out of his NG tube at this time. He reports he still does feel somewhat distended. Constitutional Vitals: Vital Signs Temp Pulse Resp BP Pulse Ox 97.9 F 109 H 18 123/82 91 08/30/20 07:13 08/30/20 07:13 08/30/20 07:13 08/30/20 07:13 08/30/20 07:13 Period Temp Pulse Resp BP Sys/Olson Pulse Ox Last 24 Hr 96.8 F-98.6 F 77-116 16-18 123-160/73-120 90-98 Intake and Output 08/29/20 08/30/20 08/30/20 21:59 05:59 13:59 Intake Total 0 0 812 Output Total 600 1277 Balance -600 -1277 812 Weight 169 lb 169 lb Patient Weight 08/31/20 05:59 Weight 169 lb Intake & Output: Intake & Output 08/29/20 08/30/20 08/30/20 21:59 05:59 13:59 Intake Total 0 0 812 Output Total 600 1277 Balance -600 -1277 812 Weight 169 lb 169 lb Intake: IV 812 Sodium Chloride 0.9% 1,000 ml @ 812 84 mls/hr IV .[id number] [facility] Rx#: [id number] Tube Feeding 0 0 0 Output: Gastric Drainage 600 800 [place]-Sump 600 800 Void Amount 475 # of times incontinent of urine 2 Other: Urine Odor Strong Strong # Voids 1 General appearance: no acute distress GI/Abdominal GI/Abdominal exam: Present soft and distended; Absent normal bowel sounds, guarding and tenderness A/P Narrative A/P Narrative: Hospital day #2 for partial small bowel obstruction. Continue n.p.o., NG tube. Encourage ambulation. We will get a small bowel follow-through today to evaluate ileal stricture. Bridger Mandujano MD, FACS [facility] General Surgery [phone] Time Spent With Patient Time: Total time spent is greater than 50% in coordination of care (as documented) at patient's floor/unit and/or counseling patient:
--- NOTE | 2020-08-30 13:10 | Ultrasound Report ---
CLINICAL INFORMATION: jairo COMPARISON: Noncontrast abdomen and pelvic CT 08/29/2020 FINDINGS: Both kidneys are normal and symmetric in size, position, configuration and echotexture: The right is 11.5 x 6 cm and the left is 10.3 x 5 cm. A 3 cm simple cyst is seen in the lateral mid right kidney a 2.9 cm simple cyst is noted inferior pole the left kidney. No stone, solid lesion or hydronephrosis. Blood flow is grossly normal two both kidneys on color Doppler. Urinary bladder volume 58 cc. patient unable to void. No focal bladder lesions. Prostate is not visualized IMPRESSION: Simple cysts in both kidneys. The kidneys are, otherwise, normal. Urinary bladder is unremarkable Interpreted and Authenticated by: Dallas Wylie 08/30/20
[2020-08-30 15:54] LABS: Appearance,Urine CLOUDY (Clear); Bilirubin,Urine Negative (Negative); Calcium Oxalate Crystals,Urine FEW /hpf; Color,Urine AMBER; Culture Indicated,Urine No; Glucose,Urine (UA) Negative (Negative); Ketones,Urine Negative (Negative); Leukocyte Esterase,Urine Negative /ug (Negative); Mucus,Urine MANY /hpf; Nitrate,Urine Negative (Negative); Protein,Urine 100 mg/dL (Negative); Specific Gravity,Urine 1.036 (1.000-1.035); Urine Hyaline Cast 19 /lph (0-2); Urine RBC 22 /hpf (0-3); Urine Squamous Epithelial Cell 1 /hpf (0-4); Urine WBC 1 /hpf (0-4); Urobilinogen,Urine Negative
--- NOTE | 2020-08-30 19:20 | XRay Report ---
CLINICAL INFORMATION: Follow-up SBO, possible ileal stricture COMPARISON: Plain films 08/29/2020 TECHNIQUE: Water-soluble contrast was infused into the indwelling NG tube and serial x-rays were obtained over three hours and 15 minutes. FINDINGS: Stomach, duodenum and multiple loops of jejunum are moderately dilated to the level the distal jejunum. No contrast is administered into the distal small bowel and colon which are decompressed. IMPRESSION: High-grade distal jejunal obstruction likely due to adhesion or stricture. Interpreted and Authenticated by: Dallas Wylie 08/30/20
--- NOTE | 2020-08-30 19:22 | XRay Report ---
CLINICAL INFORMATION: . Distal jejunal obstruction. COMPARISON: Follow follow-through imaging which was performed earlier today FINDINGS: Film taken eight hours and 15 minutes following initiation of small bowel follow-through shows multiple loops of moderately dilated small bowel congregated in the mid abdomen. Small amounts of contrast are now seen within the distal small bowel. No colonic contrast IMPRESSION: High-grade distal jejunal obstruction ostensibly related to adhesion or stricture. Minimal contrast is now seen in the distal small bowel. Interpreted and Authenticated by: Dallas Wylie 08/30/20
[2020-08-30] MEDS: SENNOSIDES 1 TABLET PO SCH (21:29)
[2020-08-31] MEDS: DEXTROSE 5%-NS 1,000 ML IV SCH ×4 (01:27→23:05)
[2020-08-31] MEDS: 0.9 % SODIUM CHLORIDE 10 ML SYRINGE IV SCH ×3 (05:58→22:45)
--- NOTE | 2020-08-31 06:39 | XRay Report ---
CLINICAL INFORMATION: NG tube verification COMPARISON: 08/30/2020 1907 hours FINDINGS: NG tube overlies the gastric body. High-grade distal small bowel obstruction pattern persists. Stomach and small bowel shows slight decrease in caliber suggesting partial decompression. No free air or soft tissue mass. IMPRESSION: NG tube overlies the gastric body. Slight improvement in high-grade distal small bowel obstruction pattern Interpreted and Authenticated by: Dallas Wylie 08/31/20
--- NOTE | 2020-08-31 07:14 | XRay Report ---
CLINICAL INFORMATION: Follow-up partial small bowel obstruction COMPARISON: 08/30/2020 FINDINGS: NG tube overlies the gastric body. The stomach, proximal/mid small bowel are now partially decompressed and there is more gas and enteric contrast within the distal small bowel and colon. No free air or soft tissue mass IMPRESSION: Moderate improvement in the distal small bowel obstruction pattern Interpreted and Authenticated by: Dallas Wylie 08/31/20
[2020-08-31 07:29] LABS: Blood Urea Nitrogen 58 mg/dL (8-23); Calcium 9.1 mg/dL (8.6-10.4); Carbon Dioxide 26 mmol/L (22-30); Chloride 97 mmol/L (96-108); Glomerular Filtration Rate 21; Glucose 157 mg/dL (70-105)
--- NOTE | 2020-08-31 07:39 | General Surgery Progress Note ---
SUBJECTIVE Subjective Patient information: Note initiated : 08/31/20 at 7:37 am Service Date, if different from initiated Date: [] Patient: Roland Middleton 80 y/o M admitted on 08/29/20 for Small bowel/ abd pain. Chief Complaint: [] Interval history: Patient feels slightly better this morning, however no flatus, no bowel movement. He denies fevers chills nausea vomiting this morning. His abdomen is still distended. KUB reviewed with continued obstructive pattern. Constitutional Vitals: Vital Signs Temp Pulse Resp BP Pulse Ox 98.3 F 102 H 20 113/69 92 08/31/20 06:48 08/31/20 06:48 08/31/20 06:48 08/31/20 06:48 08/31/20 06:48 Period Temp Pulse Resp BP Sys/Olson Pulse Ox Last 24 Hr 96.6 F-98.3 F 102-117 18-20 110-138/69-87 91-93 Intake and Output 08/30/20 08/31/20 08/31/20 21:59 05:59 13:59 Intake Total 3500 0 Output Total 1950 125 Balance 1550 -125 Weight 168 lb 11.2 oz Intake & Output: Intake & Output 08/30/20 08/31/20 08/31/20 21:59 05:59 13:59 Intake Total 3500 0 Output Total 1950 125 Balance 1550 -125 Weight 168 lb 11.2 oz Intake: IV 3500 Sodium Chloride 0.9% 1,000 ml @ 2000 84 mls/hr IV .[id number] [facility] Rx#: [id number] Sodium Chloride 0.9% 500 ml @ 500 250 mls/hr IV BOLUS ONE Rx#: [id number] Dextrose 5%-Ns IV Solution 1, 1000 000 ml @ 100 mls/hr IV .Q10H [facility] Rx#:[id number] Tube Feeding 0 0 Output: Gastric Drainage 1950 [place] 1950 Urine Catheter Amount 125 Other: Urine Appearance Clear Uretheral (Sweet) Cloudy Urine Color Light Trena Tea Colored Uretheral (Sweet) Dark Trena General appearance: no acute distress GI/Abdominal GI/Abdominal exam: Present soft and distended; Absent tenderness A/P Narrative A/P Narrative: Hospital day #2 with high-grade partial small bowel obstruction, no resolution seen on this morning's KUB. Discussed with the patient management options including risk benefits and alternatives to surgical intervention. Patient agrees with surgical intervention at this time. We will schedule for exploratory laparotomy possible small bowel obstruction. Time Spent With Patient Time: Total time spent is greater than 50% in coordination of care (as documented) at patient's floor/unit and/or counseling patient:
[2020-08-31 07:59] LABS: Basophils # (Auto) 0.13 K/mcL (0.00-0.20); Basophils % (Auto) 0.3 % (0.0-2.0); Eosinophils % (Auto) 0.2 % (0.0-7.0); Hematocrit 40.9 % (41.0-55.0); Hemoglobin 12.8 g/dL (13.5-16.5); Lymphocytes # (Auto) 1.58 K/mcL (1.50-4.80); Lymphocytes % (Auto) 3.6 % (15.0-49.0); Mean Corpuscular HGB Conc 31.3 g/dL (31.0-36.0); Mean Platelet Volume 13.9 fL (7.4-10.4); Monocytes # (Auto) 13.39 K/mcL (0.10-0.90); Monocytes % (Auto) 30.2 % (1.0-12.0); Neutrophils % (Auto) 65.7 % (38.0-78.0); Platelet Count 138 K/mcL (140-440); Red Cell Distribution Width 14.5 % (11.5-14.5); WBC 44.4 K/mcL (4.5-11.0)
[2020-08-31] MEDS ORDERED: ceFAZolin 2 GM in DEXTROSE 5% IN WATER 50 ML IV SCH (08:00)
[2020-08-31] MEDS: morphine 2 MG/ML VIAL IV PRN ×3 (08:03→20:34)
[2020-08-31] MEDS: methylPREDNISolone SOD SUCC 40 MG/ML VIAL IV SCH (08:03)
[2020-08-31] MEDS: DOCUSATE SODIUM 100 MG CAPSULE PO SCH ×2 (08:14→20:53)
--- NOTE | 2020-08-31 09:19 | Internal Med Progress Note ---
SUBJECTIVE Subjective Patient information: Note initiated : 08/31/20 at 9:07 am Service Date, if different from initiated Date: [] Patient: Roland Middleton 80 y/o M admitted on 08/29/20 for Small bowel/ abd pain. Chief Complaint: [] Interval history: Interval history: Presents the ED after going to [facility] for small bowel obstruction. His abdominal pain started on Tuesday and described as crampy as well as sharp. Last bowel movement was on Tuesday said was soft. Had an episode nausea vomiting other day. No fever chills or any other complaints. Work-up in the ED revealed high-grade distal small bowel obstruction 08/30 Patient's white blood cells were elevated at urgent care yesterday the double to 50 today. Patient states that his history of abnormal white blood cell counts and typically run high although I do not see that on our lab history. He is afebrile, nontoxic-appearing. He actually feels better since the drainage via the NG tube. And slept okay. He has not had any flatus or bowel movement since admission. Abdominal and back pain are little better. *I discussed the case with hematology (Dr. Singh) regarding his significant leukocytosis. Given the fact that the patient appears nontoxic and there is no obvious source of infection. No bandemia, Afebrile. UA is pending but has no complaints. No respiratory complaints. Overall feeling improvement from yesterday. And most importantly the peripheral smear excluded an acute leukemia. It was felt that the patient could be followed-up outpt with Hematology. I will also trend cbc. 08/31 Patient states he is feeling okay and slept fine. Abdominal pain similar to yesterday, not too bad. Failing to progress and will go to the OR today. No BMs overnight. at bedside. Review of Systems: denies headache/fever/chills/nausea/vomiting/chest pain/cough/dyspnea/diarrhea. Otherwise see above. Constitutional Vitals: Vital Signs Temp Pulse Resp BP Pulse Ox 98.3 F 102 H 20 113/69 92 08/31/20 06:48 08/31/20 06:48 08/31/20 06:48 08/31/20 06:48 08/31/20 06:48 Period Temp Pulse Resp BP Sys/Olson Pulse Ox Last 24 Hr 96.6 F-98.3 F 102-117 18-20 110-138/69-87 91-93 Intake and Output 08/30/20 08/31/20 08/31/20 21:59 05:59 13:59 Intake Total 3500 0 0 Output Total 1950 125 Balance 1550 -125 0 Weight 76.521 kg Intake & Output: Intake & Output 08/30/20 08/31/20 08/31/20 21:59 05:59 13:59 Intake Total 3500 0 0 Output Total 1950 125 Balance 1550 -125 0 Weight 76.521 kg Intake: IV 3500 Sodium Chloride 0.9% 1,000 ml @ 2000 84 mls/hr IV .[id number] [facility] Rx#: [id number] Sodium Chloride 0.9% 500 ml @ 500 250 mls/hr IV BOLUS ONE Rx#: [id number] Dextrose 5%-Ns IV Solution 1, 1000 000 ml @ 100 mls/hr IV .Q10H [facility] Rx#:[id number] Tube Feeding 0 0 0 Output: Gastric Drainage 1949 [facility] 1950 Urine Catheter Amount 125 Other: Urine Appearance Clear Uretheral (Patrick) Cloudy Urine Color Light Trena Tea Colored Uretheral (Patrick) Dark Trena Exam: General: Alert, Awake, No acute Distress Eyes/N/T: EOMI, right eye blind Head/Neck: neck supple, CV: RRR, No murmurs, Pulm: Clear b/l, no wheezing/rhonchi/rales Abd: soft, mild generalized tenderness, distended, decreased BS Ext: no clubbing/cyanosis/edema Neuro: Alert, no focal deficits, moves all extremities, Skin: warm/dry OBJ DATA Labs CBC & Chem 7: 08/31/20 05:31 08/31/20 05:30 Labs: Abnormal Lab Results 08/31/20 08/31/20 08/30/20 05:31 05:30 15:07 WBC 44.4 H* RBC 4.40 L Hgb 12.8 L Hct 40.9 L Plt Count 138 L MPV 13.9 H Lymph % (Auto) 3.6 L [place] % (Auto) 30.2 H Lymph # (Auto) [place] # (Auto) 13.39 H Lymphocytes % Monocytes % (Manual) Absolute Neutrophils 29.16 H Chloride BUN 58 H Creatinine 2.7 H Glucose 157 H Lactate Dehydrogenase NT-Pro-B Natriuret Pep Procalcitonin Urine Appearance Cloudy A Urine Protein 100 A Urine RBC 22 H Calcium Oxalate Crystal Few A Hyaline Casts 19 H Urine Mucus Many A 08/30/20 08/30/20 08/30/20 06:44 05:10 05:10 WBC 59.2 H* RBC Hgb Hct Plt Count MPV 12.5 H Lymph % (Auto) [place] % (Auto) Lymph # (Auto) [place] # (Auto) Lymphocytes % 3 L Monocytes % (Manual) 25 H Absolute Neutrophils Chloride BUN 38 H Creatinine 1.5 H Glucose 126 H Lactate Dehydrogenase NT-Pro-B Natriuret Pep Procalcitonin 0.29 H Urine Appearance Urine Protein Urine RBC Calcium Oxalate Crystal Hyaline Casts Urine Mucus 08/30/20 08/30/20 08/29/20 05:10 05:10 14:26 WBC 51.2 H* RBC Hgb Hct Plt Count MPV 13.1 H Lymph % (Auto) 2.7 L [place] % (Auto) 31.1 H Lymph # (Auto) 1.38 L [place] # (Auto) 15.92 H Lymphocytes % Monocytes % (Manual) Absolute Neutrophils 33.65 H Chloride 95 L BUN 38 H Creatinine 1.4 H Glucose 125 H Lactate Dehydrogenase 334 H NT-Pro-B Natriuret Pep 1715.0 H Procalcitonin Urine Appearance Urine Protein Urine RBC Calcium Oxalate Crystal Hyaline Casts Urine Mucus Meds: Medications Docusate Sodium (Docusate Sodium 100 Mg Capsule) 100 mg PO BID [facility] Last Admin: 08/31/20 08:14 Dose: Not Given Documented by: Dextrose/Sodium Chloride (Dextrose 5%-Ns Iv Solution) 1,000 mls @ 100 mls/hr IV .Q10H [facility] Last Admin: 08/31/20 05:09 Dose: Not Given Documented by: Cefazolin Sodium 2 gm/ (Dextrose) 50 mls @ 100 mls/hr IV PREOP [facility]; Protocol Stop: 08/31/20 15:00 Methylprednisolone Sodium Succinate (Methylprednisolone Sod Succ 40 Mg/Ml Vial) 4 mg IV DAILY [facility] Last Admin: 08/31/20 08:03 Dose: 4 mg Documented by: Morphine Sulfate (Morphine 2 Mg/Ml Vial) 2 mg IV Q1HP PRN; Protocol PRN Reason: Chest Pain Last Admin: 08/31/20 08:03 Dose: 2 mg Documented by: Ondansetron HCl (Ondansetron 4 Mg/2 Ml Vial) 4 mg IV Q4HP PRN PRN Reason: Nausea And Vomiting Senna (Sennosides 1 Tablet) 2 tab PO HS [facility] Last Admin: 08/30/20 21:29 Dose: Not Given Documented by: Sodium Chloride (0.9 % Sodium Chloride 10 Ml Syringe) 10 ml IV Q8 [facility] Last Admin: 08/31/20 05:58 Dose: Not Given Documented by: A/P Narrative A/P Narrative: A: *pSBO: failure to progress *Leukocytosis: 24k @urgent care, up to 50k. Pt states h/o elevated WBC although I do not see that on our old labs. -I discussed the case with hematology (Dr. Singh) regarding his significant leukocytosis. Given the fact that the patient appears nontoxic and there is no obvious source of infection. No bandemia, Afebrile, crp low. UA is pending but has no complaints. No respiratory complaints. Overall feeling improvement from yesterday. And most importantly the peripheral smear excluded an acute leukemia. It was felt that the patient could be followed-up outpt with Hematology. 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 no hydro -1.4@ urgent care, still 1.4. -worsended today, could be from increased intrabdominal pressure sbo giving decreased renal flow -unable to get patrick in until last night but was leaking, adusted this morning *RA: Follows Dr. Jacinto -Is on leflunomide and chronic prednisone *Chronic mild thrombocytopenia: *Anemia, chronic: *h/o B-cell Lymphoma & Prostate CA with ongoing anemia/thrombocytopenia & monocytosis: -received chemotherapy and radical prostatectomy *Suspect underlying early dementia vs MCI with owning: P: -Small bowel obstruction per surgeon to OR today -Diet per surgeon -IVF's increase -monitor UOP/renal fxn -Continue prednisone (IV methylprednisolone while npo) -Ambulation -incidental AAA 3cm, f/u ultrasound in 1- year -ppx: SCD per surgeon Time Spent With Patient Time: Total time spent is greater than 50% in coordination of care (as documented) at patient's floor/unit and/or counseling patient: QUALITY VTE Deep Vein Thrombosis/Pulmonary Embolism Present on Admission: No
[2020-08-31] MEDS ORDERED: 0.9 % SODIUM CHLORIDE 500 ML IV SCH (09:30)
[2020-08-31] MEDS ORDERED: DEXTROSE 5%-NS 1,000 ML IV SCH (09:50)
[2020-08-31] MEDS ORDERED: HYDROCORTISONE SOD SUCC 100 MG VIAL IV ONE (12:34)
[2020-08-31] MEDS ORDERED: PROPOFOL 200 MG/20 ML VIAL IV ONE (12:39)
[2020-08-31] MEDS ORDERED: LIDOCAINE HCL/PF 100 MG/5 ML SYRINGE IV ONE (12:39)
[2020-08-31] MEDS ORDERED: SUGAMMADEX SODIUM 200 MG/2 ML VIAL IV ONE (12:39)
[2020-08-31] MEDS ORDERED: GLYCOPYRROLATE 0.2 MG/ML VIAL IV ONE (12:39)
[2020-08-31] MEDS ORDERED: MIDAZOLAM 2 MG/2 ML VIAL ONE (12:39)
[2020-08-31] MEDS ORDERED: PHENYLEPHRINE 10 MG/ML VIAL ONE (12:39)
[2020-08-31] MEDS ORDERED: ROCURONIUM 10 MG/ML ML IV ONE (12:39)
[2020-08-31] MEDS ORDERED: DEXAMETHASONE 10 MG/ML VIAL ONE (12:39)
[2020-08-31] MEDS ORDERED: fentaNYL 100 MCG/2 ML VIAL IV ONE (12:39)
[2020-08-31] MEDS ORDERED: ONDANSETRON 4 MG/2 ML VIAL ONE (12:39)
[2020-08-31] MEDS ORDERED: KETAMINE 100 MG/ML ML ONE (12:39)
[2020-08-31] MEDS ORDERED: BENZOCAINE/MENTHOL 1 LOZENGE PO PRN (13:08)
[2020-08-31] MEDS ORDERED: ACETAMINOPHEN 1,000 MG/100 ML BAG IV ONE (13:08)
[2020-08-31] MEDS ORDERED: IPRATROPIUM/ALBUTEROL 3 ML AMPUL.NEB NEB PRN (13:08)
[2020-08-31] MEDS ORDERED: ONDANSETRON 4 MG/2 ML VIAL IV PRN (13:08)
[2020-08-31] MEDS ORDERED: LACTATED RINGERS 1,000 ML IV SCH (13:15)
--- NOTE | 2020-08-31 13:27 | Operative Note ---
Brief Operative Note Date of procedure: 08/31/20 Pre-op diagnosis: Partial small bowel obstruction, possible adhesive disease Post-op diagnosis: other (Gallstone ileus causing complete bowel obstruction) Procedure: Exploratory laparotomy, enterotomy with removal of gallstone Anesthesia: GETA Findings: Gallstone ileus, 3 cm gallstone impacted at the ileocecal valve Complications: none Surgeon: Bridger Mandujano Estimated blood loss (cc): 10 Specimens Removed/Pathology: other (Gallstone) Condition: stable Disposition: PACU Operative Note Operative Note: The various benefits and alternatives to the procedure were discussed with the patient at length verbalized understanding and desire to continue with the procedure. Patient was taken main operating room placed by the operating table. General anesthesia was induced over endotracheal tube. Patient's prepped and draped in standard sterile surgical fashion. Surgical timeout was taken to verify patient and procedure being performed. A midline incision was made periumbilically carried down through skin and subcutaneous tissue. Upon entry into the abdominal cavity there was no evidence of succus or free air. Extensively dilated small bowel was encountered this was completely removed from the abdominal cavity, there was no obvious adhesive disease. The bowel was ran from the ligament of Treitz down to the terminal ileum where an obstructive gallstone was identified. This was milked back approximately 20 cm and a vertical enterotomy was created large enough to remove the gallstone. The enterotomy was closed horizontally with a running 3-0 Prolene and interrupted 3-0 Vicryl sutures. This completely resolved the patient's obstruction. NG tube in good position and the bowel was returned to the abdominal cavity. The midline laparotomy incision was then closed with a running looped 0 PDS suture. Subtenons tissue was irrigated and closed with surgical earnestine. Xeroform, 4 x 4 and tape dressings were then applied. Patient was then awakened from anesthesia transferred postanesthesia care unit awake alert in good condition.
[2020-08-31] MEDS: fentaNYL 100 MCG/2 ML VIAL IV PRN ×4 (13:43→14:02)
[2020-08-31] MEDS: METOPROLOL TARTRATE 5 MG/5 ML VIAL IV SCH ×4 (14:00→18:17)
[2020-08-31] MEDS ORDERED: hydrALAZINE 20 MG/ML VIAL IV ONE (14:22)
[2020-08-31] MEDS: MEPERIDINE 25 MG/ML SYRINGE IV PRN ×2 (14:23→14:28)
[2020-08-31] MEDS ORDERED: 0.9 % SODIUM CHLORIDE 500 ML IV ONE (17:05)
[2020-08-31] MEDS: SENNOSIDES 1 TABLET PO SCH (20:54)
[2020-09-01] MEDS: DEXTROSE 5%-NS 1,000 ML IV SCH ×2 (02:47→06:48)
[2020-09-01] MEDS: morphine 2 MG/ML VIAL IV PRN ×5 (03:34→23:30)
[2020-09-01] MEDS: 0.9 % SODIUM CHLORIDE 10 ML SYRINGE IV SCH ×3 (05:43→20:58)
[2020-09-01 07:24] LABS: ALT/SGPT 16 U/L (<40); AST/SGOT 18 U/L (<40); Albumin 2.9 gm/dL (3.2-5.2); Albumin/Globulin Ratio 0.9 (1.0-2.3); Alkaline Phosphatase 80 U/L (39-117); Bilirubin,Direct < 0.2 mg/dL (<0.3); Bilirubin,Total 0.3 mg/dL (0.1-1.0); Blood Urea Nitrogen 56 mg/dL (8-23); Calcium 8.2 mg/dL (8.6-10.4); Carbon Dioxide 25 mmol/L (22-30); Chloride 107 mmol/L (96-108); Globulin 3.3 gm/dL (2.2-3.7); Glomerular Filtration Rate 35; Glucose 148 mg/dL (70-105); Lactate Dehydrogenase 396 U/L (135-225); Phosphorous 2.9 mg/dL (2.5-4.5); Triglycerides 71 mg/dL (<150); Uric Acid 9.1 mg/dL (2.5-8.0)
--- NOTE | 2020-09-01 07:35 | Internal Med Progress Note ---
SUBJECTIVE Subjective Patient information: Note initiated : 09/01/20 at 7:31 am Service Date, if different from initiated Date: [] Patient: Roland Middleton 80 y/o M admitted on 08/29/20 for Small bowel/ abd pain. Chief Complaint: [] Interval history: Interval history: Presents the ED after going to [facility] for small bowel obstruction. His abdominal pain started on Tuesday and described as crampy as well as sharp. Last bowel movement was on Tuesday said was soft. Had an episode nausea vomiting other day. No fever chills or any other complaints. Work-up in the ED revealed high-grade distal small bowel obstruction 08/30 Patient's white blood cells were elevated at urgent care yesterday the double to 50 today. Patient states that his history of abnormal white blood cell counts and typically run high although I do not see that on our lab history. He is afebrile, nontoxic-appearing. He actually feels better since the drainage via the NG tube. And slept okay. He has not had any flatus or bowel movement since admission. Abdominal and back pain are little better. *I discussed the case with hematology (Dr. Singh) regarding his significant leukocytosis. Given the fact that the patient appears nontoxic and there is no obvious source of infection. No bandemia, Afebrile. UA is pending but has no complaints. No respiratory complaints. Overall feeling improvement from yesterday. And most importantly the peripheral smear excluded an acute leukemia. It was felt that the patient could be followed-up outpt with Hematology. I will also trend cbc. 08/31 Patient states he is feeling okay and slept fine. Abdominal pain similar to yesterday, not too bad. Failing to progress and will go to the OR today. No BMs overnight. at bedside. 09/01 Seems to be doing well. No new complaints. Improving urine output. Improving renal function. Passed flatus but no BMs. Review of Systems: denies headache/fever/chills/nausea/vomiting/chest pain/cough/dyspnea/diarrhea. Otherwise see above. Constitutional Vitals: Vital Signs Temp Pulse Resp BP Pulse Ox 98.5 F 113 H 18 134/80 98 09/01/20 07:08 09/01/20 07:08 09/01/20 07:08 09/01/20 07:08 09/01/20 07:08 Period Temp Pulse Resp BP Sys/Olson Pulse Ox Last 24 Hr 97 F-98.5 F 83-133 15-27 113-188/71-128 88-100 Intake and Output 08/31/20 09/01/20 09/01/20 21:59 05:59 13:59 Intake Total 1100 1000 0 Output Total 150 975 Balance 950 25 0 Weight 77.167 kg Intake & Output: Intake & Output 08/31/20 09/01/20 09/01/20 21:59 05:59 13:59 Intake Total 1100 1000 0 Output Total 150 975 Balance 950 25 0 Weight 77.167 kg Intake: IV 1100 1000 Dextrose 5%-Ns IV Solution 1, 1000 1000 000 ml @ 125 mls/hr IV .Q8H [facility] Rx#:[id number] Tube Feeding 0 0 0 Output: Gastric Drainage 475 [place] 475 Urine Catheter Amount 150 500 Other: Urine Appearance Clear Clear Urine Color Tea Colored Tea Colored Uretheral (Sweet) Tea Colored Urine Odor Foul Strong Uretheral (Sweet) Foul Exam: General: Alert, Awake, No acute Distress Eyes/N/T: EOMI, right eye blind Head/Neck: neck supple, CV: RRR, No murmurs, Pulm: Clear b/l, no wheezing/rhonchi/rales Abd: soft, decreased BS Ext: no clubbing/cyanosis/edema Neuro: Alert, no focal deficits, moves all extremities, Skin: warm/dry OBJ DATA Labs CBC & Chem 7: 08/31/20 05:31 09/01/20 05:51 Labs: Abnormal Lab Results 09/01/20 08/31/20 08/31/20 05:51 05:31 05:30 WBC 44.4 H* RBC 4.40 L Hgb 12.8 L Hct 40.9 L Plt Count 138 L MPV 13.9 H Lymph % (Auto) 3.6 L [place] % (Auto) 30.2 H Lymph # (Auto) [place] # (Auto) 13.39 H Lymphocytes % Monocytes % (Manual) Absolute Neutrophils 29.16 H Chloride BUN 56 H 58 H Creatinine 1.8 H 2.7 H Glucose 148 H 157 H Uric Acid 9.1 H Calcium 8.2 L Lactate Dehydrogenase 396 H NT-Pro-B Natriuret Pep Albumin 2.9 L Albumin/Globulin Ratio 0.9 L Procalcitonin Urine Appearance Urine Protein Urine RBC Calcium Oxalate Crystal Hyaline Casts Urine Mucus 08/30/20 08/30/20 08/30/20 15:07 06:44 05:10 WBC 59.2 H* RBC Hgb Hct Plt Count MPV 12.5 H Lymph % (Auto) [place] % (Auto) Lymph # (Auto) [place] # (Auto) Lymphocytes % 3 L Monocytes % (Manual) 25 H Absolute Neutrophils Chloride BUN Creatinine Glucose Uric Acid Calcium Lactate Dehydrogenase NT-Pro-B Natriuret Pep Albumin Albumin/Globulin Ratio Procalcitonin 0.29 H Urine Appearance Cloudy A Urine Protein 100 A Urine RBC 22 H Calcium Oxalate Crystal Few A Hyaline Casts 19 H Urine Mucus Many A 08/30/20 08/30/20 08/30/20 05:10 05:10 05:10 WBC 51.2 H* RBC Hgb Hct Plt Count MPV 13.1 H Lymph % (Auto) 2.7 L [place] % (Auto) 31.1 H Lymph # (Auto) 1.38 L [place] # (Auto) 15.92 H Lymphocytes % Monocytes % (Manual) Absolute Neutrophils 33.65 H Chloride 95 L BUN 38 H 38 H Creatinine 1.5 H 1.4 H Glucose 126 H 125 H Uric Acid Calcium Lactate Dehydrogenase 334 H NT-Pro-B Natriuret Pep Albumin Albumin/Globulin Ratio Procalcitonin Urine Appearance Urine Protein Urine RBC Calcium Oxalate Crystal Hyaline Casts Urine Mucus 08/29/20 14:26 WBC RBC Hgb Hct Plt Count MPV Lymph % (Auto) [place] % (Auto) Lymph # (Auto) [place] # (Auto) Lymphocytes % Monocytes % (Manual) Absolute Neutrophils Chloride BUN Creatinine Glucose Uric Acid Calcium Lactate Dehydrogenase NT-Pro-B Natriuret Pep 1715.0 H Albumin Albumin/Globulin Ratio Procalcitonin Urine Appearance Urine Protein Urine RBC Calcium Oxalate Crystal Hyaline Casts Urine Mucus Meds: Medications Docusate Sodium (Docusate Sodium 100 Mg Capsule) 100 mg PO BID [facility] Last Admin: 08/31/20 20:53 Dose: Not Given Documented by: Dextrose/Sodium Chloride (Dextrose 5%-Ns Iv Solution) 1,000 mls @ 125 mls/hr IV .Q8H [facility] Last Admin: 09/01/20 06:48 Dose: Not Given Documented by: Methylprednisolone Sodium Succinate (Methylprednisolone Sod Succ 40 Mg/Ml Vial) 4 mg IV DAILY [facility] Morphine Sulfate (Morphine 2 Mg/Ml Vial) 2 mg IV Q1HP PRN; Protocol PRN Reason: Chest Pain Last Admin: 09/01/20 03:34 Dose: 2 mg Documented by: Ondansetron HCl (Ondansetron 4 Mg/2 Ml Vial) 4 mg IV Q4HP PRN PRN Reason: Nausea And Vomiting Senna (Sennosides 1 Tablet) 2 tab PO HS [facility] Last Admin: 08/31/20 20:54 Dose: Not Given Documented by: Sodium Chloride (0.9 % Sodium Chloride 10 Ml Syringe) 10 ml IV Q8 [facility] Last Admin: 09/01/20 05:43 Dose: Not Given Documented by: A/P Narrative A/P Narrative: A: *pSBO from gallstone in ileocecal valve: s/p ex-lap w/enterotomy and removal of gallstone (08/31) *Leukocytosis: 24k @urgent care, up to 50k. Pt states h/o elevated WBC although I do not see that on our old labs. -I discussed the case with hematology (Dr. Singh) regarding his significant leukocytosis. Given the fact that the patient appears nontoxic and there is no obvious source of infection. No bandemia, Afebrile, crp low. UA is pending but has no complaints. No respiratory complaints. Overall feeling improvement from yesterday. And most importantly the peripheral smear excluded an acute leukemia. It was felt that the patient could be followed-up outpt with Hematology. 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 no hydro -1.4@ urgent care, still 1.4. -worsended but now improving since surgery and continued IVF's *RA: Follows Dr. Jacinto -Is on leflunomide and chronic prednisone *Chronic mild thrombocytopenia: *Anemia, chronic: *h/o B-cell Lymphoma & Prostate CA with ongoing anemia/thrombocytopenia & monocytosis: -received chemotherapy and radical prostatectomy *Suspect underlying early dementia vs MCI with owning: P: -Small bowel obstruction per surgeon -Diet per surgeon -IVF's continue -monitor UOP/renal fxn -Continue prednisone (IV methylprednisolone while npo) -Ambulation -incidental AAA 3cm, f/u ultrasound in 1- year -ppx: SCD per surgeon Time Spent With Patient Time: Total time spent is greater than 50% in coordination of care (as documented) at patient's floor/unit and/or counseling patient: QUALITY VTE Deep Vein Thrombosis/Pulmonary Embolism Present on Admission: No
--- NOTE | 2020-09-01 07:35 | Internal Med Progress Note ---
SUBJECTIVE Subjective Patient information: Note initiated : 09/01/20 at 7:35 am Service Date, if different from initiated Date: [] Patient: Roland Middleton 80 y/o M admitted on 08/29/20 for Small bowel/ abd pain. Chief Complaint: [] Constitutional Vitals: Vital Signs Temp Pulse Resp BP Pulse Ox 98.5 F 113 H 18 134/80 98 09/01/20 07:08 09/01/20 07:08 09/01/20 07:08 09/01/20 07:08 09/01/20 07:08 Period Temp Pulse Resp BP Sys/Olson Pulse Ox Last 24 Hr 97 F-98.5 F 83-133 15-27 113-188/71-128 88-100 Intake and Output 08/31/20 09/01/20 09/01/20 21:59 05:59 13:59 Intake Total 1100 1000 0 Output Total 150 975 Balance 950 25 0 Weight 77.167 kg Intake & Output: Intake & Output 08/31/20 09/01/20 09/01/20 21:59 05:59 13:59 Intake Total 1100 1000 0 Output Total 150 975 Balance 950 25 0 Weight 77.167 kg Intake: IV 1100 1000 Dextrose 5%-Ns IV Solution 1, 1000 1000 000 ml @ 125 mls/hr IV .Q8H [facility] Rx#:[id number] Tube Feeding 0 0 0 Output: Gastric Drainage 475 [place]-Sump 475 Urine Catheter Amount 150 500 Other: Urine Appearance Clear Clear Urine Color Tea Colored Tea Colored Uretheral (Sweet) Tea Colored Urine Odor Foul Strong Uretheral (Sweet) Foul OBJ DATA Labs CBC & Chem 7: 08/31/20 05:31 09/01/20 05:51 Labs: Abnormal Lab Results 09/01/20 08/31/20 08/31/20 05:51 05:31 05:30 WBC 44.4 H* RBC 4.40 L Hgb 12.8 L Hct 40.9 L Plt Count 138 L MPV 13.9 H Lymph % (Auto) 3.6 L Cannon % (Auto) 30.2 H Lymph # (Auto) [place] # (Auto) 13.39 H Lymphocytes % Monocytes % (Manual) Absolute Neutrophils 29.16 H Chloride BUN 56 H 58 H Creatinine 1.8 H 2.7 H Glucose 148 H 157 H Uric Acid 9.1 H Calcium 8.2 L Lactate Dehydrogenase 396 H NT-Pro-B Natriuret Pep Albumin 2.9 L Albumin/Globulin Ratio 0.9 L Procalcitonin Urine Appearance Urine Protein Urine RBC Calcium Oxalate Crystal Hyaline Casts Urine Mucus 08/30/20 08/30/20 08/30/20 15:07 06:44 05:10 WBC 59.2 H* RBC Hgb Hct Plt Count MPV 12.5 H Lymph % (Auto) Cannon % (Auto) Lymph # (Auto) [place] # (Auto) Lymphocytes % 3 L Monocytes % (Manual) 25 H Absolute Neutrophils Chloride BUN Creatinine Glucose Uric Acid Calcium Lactate Dehydrogenase NT-Pro-B Natriuret Pep Albumin Albumin/Globulin Ratio Procalcitonin 0.29 H Urine Appearance Cloudy A Urine Protein 100 A Urine RBC 22 H Calcium Oxalate Crystal Few A Hyaline Casts 19 H Urine Mucus Many A 08/30/20 08/30/20 08/30/20 05:10 05:10 05:10 WBC 51.2 H* RBC Hgb Hct Plt Count MPV 13.1 H Lymph % (Auto) 2.7 L Cannon % (Auto) 31.1 H Lymph # (Auto) 1.38 L [place] # (Auto) 15.92 H Lymphocytes % Monocytes % (Manual) Absolute Neutrophils 33.65 H Chloride 95 L BUN 38 H 38 H Creatinine 1.5 H 1.4 H Glucose 126 H 125 H Uric Acid Calcium Lactate Dehydrogenase 334 H NT-Pro-B Natriuret Pep Albumin Albumin/Globulin Ratio Procalcitonin Urine Appearance Urine Protein Urine RBC Calcium Oxalate Crystal Hyaline Casts Urine Mucus 08/29/20 14:26 WBC RBC Hgb Hct Plt Count MPV Lymph % (Auto) Cannon % (Auto) Lymph # (Auto) [place] # (Auto) Lymphocytes % Monocytes % (Manual) Absolute Neutrophils Chloride BUN Creatinine Glucose Uric Acid Calcium Lactate Dehydrogenase NT-Pro-B Natriuret Pep 1715.0 H Albumin Albumin/Globulin Ratio Procalcitonin Urine Appearance Urine Protein Urine RBC Calcium Oxalate Crystal Hyaline Casts Urine Mucus Meds: Medications Docusate Sodium (Docusate Sodium 100 Mg Capsule) 100 mg PO BID [facility] Last Admin: 08/31/20 20:53 Dose: Not Given Documented by: Dextrose/Sodium Chloride (Dextrose 5%-Ns Iv Solution) 1,000 mls @ 125 mls/hr IV .Q8H [facility] Last Admin: 09/01/20 06:48 Dose: Not Given Documented by: Methylprednisolone Sodium Succinate (Methylprednisolone Sod Succ 40 Mg/Ml Vial) 4 mg IV DAILY [facility] Morphine Sulfate (Morphine 2 Mg/Ml Vial) 2 mg IV Q1HP PRN; Protocol PRN Reason: Chest Pain Last Admin: 09/01/20 03:34 Dose: 2 mg Documented by: Ondansetron HCl (Ondansetron 4 Mg/2 Ml Vial) 4 mg IV Q4HP PRN PRN Reason: Nausea And Vomiting Senna (Sennosides 1 Tablet) 2 tab PO HS [facility] Last Admin: 08/31/20 20:54 Dose: Not Given Documented by: Sodium Chloride (0.9 % Sodium Chloride 10 Ml Syringe) 10 ml IV Q8 [facility] Last Admin: 09/01/20 05:43 Dose: Not Given Documented by: A/P Time Spent With Patient Time: Total time spent is greater than 50% in coordination of care (as docu mented) at patient's floor/unit and/or counseling patient: QUALITY VTE Deep Vein Thrombosis/Pulmonary Embolism Present on Admission: No
[2020-09-01] MEDS: methylPREDNISolone SOD SUCC 40 MG/ML VIAL IV SCH (08:23)
[2020-09-01] MEDS ORDERED: 0.9 % SODIUM CHLORIDE 1,000 ML IV SCH (08:45)
--- NOTE | 2020-09-01 09:00 | General Surgery Progress Note ---
SUBJECTIVE Subjective Patient information: Note initiated : 09/01/20 at 8:58 am Service Date, if different from initiated Date: [] Patient: Roland Middleton 80 y/o M admitted on 08/29/20 for Small bowel/ abd pain. Chief Complaint: [] Interval history: Postop day #1 status post exploratory laparotomy for gallstone ileus, patient is doing well has passed some flatus. No fevers no chills no nausea or vomiting. Constitutional Vitals: Vital Signs Temp Pulse Resp BP Pulse Ox 98.5 F 113 H 18 134/80 98 09/01/20 07:08 09/01/20 07:08 09/01/20 07:08 09/01/20 07:08 09/01/20 07:08 Period Temp Pulse Resp BP Sys/Olson Pulse Ox Last 24 Hr 97 F-98.5 F 83-133 15-27 113-188/71-128 88-100 Intake and Output 08/31/20 09/01/20 09/01/20 21:59 05:59 13:59 Intake Total 1100 1000 0 Output Total 150 975 Balance 950 25 0 Weight 170 lb 2 oz Intake & Output: Intake & Output 08/31/20 09/01/20 09/01/20 21:59 05:59 13:59 Intake Total 1100 1000 0 Output Total 150 975 Balance 950 25 0 Weight 170 lb 2 oz Intake: IV 1100 1000 Dextrose 5%-Ns IV Solution 1, 1000 1000 000 ml @ 125 mls/hr IV .Q8H [facility] Rx#:[id number] Tube Feeding 0 0 0 Output: Gastric Drainage 475 [place]-Sump 475 Urine Catheter Amount 150 500 Other: Urine Appearance Clear Clear Urine Color Tea Colored Tea Colored Uretheral (Sweet) Tea Colored Urine Odor Foul Strong Uretheral (Sweet) Foul General appearance: no acute distress GI/Abdominal GI/Abdominal exam: Present normal bowel sounds and soft; Absent distended A/P Narrative A/P Narrative: Doing well postop day #1 status post exploratory laparotomy. DC NG tube, clear liquid diet as tolerated. Encourage ambulation. Time Spent With Patient Time: Total time spent is greater than 50% in coordination of care (as documented) at patient's floor/unit and/or counseling patient:
[2020-09-01] MEDS: DOCUSATE SODIUM 100 MG CAPSULE PO SCH ×2 (11:03→20:57)
[2020-09-01 15:15] LABS: POC Blood Urea Nitrogen 49 mg/dL (6-20); POC CO2 27 mmol/L (22-30); POC Calcium, Ionized 0.88 mmEq/L (1.16-1.32); POC Chloride 104 mEq/L (96-108); POC Creatinine 1.6 mg/dL (0.6-1.2); POC Glucose, Random 138 mg/dL (70-105); POC Hematocrit 38 % (41-55); POC Potassium 3.9 mEql/L (3.3-5.1); POC Sodium 141 mEq/L (133-145)
[2020-09-01] MEDS: 0.9 % SODIUM CHLORIDE 1,000 ML IV SCH ×2 (15:44→21:02)
[2020-09-01] MEDS: ONDANSETRON 4 MG/2 ML VIAL IV PRN ×2 (18:59→23:09)
[2020-09-01] MEDS: SENNOSIDES 1 TABLET PO SCH (20:58)
[2020-09-02] MEDS: morphine 2 MG/ML VIAL IV PRN ×2 (00:45→04:36)
[2020-09-02] MEDS: ONDANSETRON 4 MG/2 ML VIAL IV PRN (03:07)
[2020-09-02] MEDS: 0.9 % SODIUM CHLORIDE 1,000 ML IV SCH (03:11)
[2020-09-02] MEDS: 0.9 % SODIUM CHLORIDE 10 ML SYRINGE IV SCH ×3 (04:17→21:00)
[2020-09-02 07:09] LABS: ALT/SGPT 12 U/L (<40); AST/SGOT 16 U/L (<40); Albumin 2.9 gm/dL (3.2-5.2); Albumin/Globulin Ratio 0.8 (1.0-2.3); Alkaline Phosphatase 101 U/L (39-117); Bilirubin,Direct < 0.2 mg/dL (<0.3); Bilirubin,Total 0.5 mg/dL (0.1-1.0); Blood Urea Nitrogen 47 mg/dL (8-23); Calcium 8.4 mg/dL (8.6-10.4); Carbon Dioxide 30 mmol/L (22-30); Chloride 103 mmol/L (96-108); Globulin 3.6 gm/dL (2.2-3.7); Glomerular Filtration Rate 57; Glucose 105 mg/dL (70-105); Lactate Dehydrogenase 412 U/L (135-225); Phosphorous 2.5 mg/dL (2.5-4.5); Triglycerides 94 mg/dL (<150)
--- NOTE | 2020-09-02 07:42 | Internal Med Progress Note ---
SUBJECTIVE Subjective Patient information: Note initiated : 09/02/20 at 7:36 am Service Date, if different from initiated Date: [] Patient: Roland Middleton 80 y/o M admitted on 08/29/20 for Small bowel/ abd pain. Chief Complaint: [] Interval history: Interval history: Presents the ED after going to [facility] for small bowel obstruction. His abdominal pain started on Tuesday and described as crampy as well as sharp. Last bowel movement was on Tuesday said was soft. Had an episode nausea vomiting other day. No fever chills or any other complaints. Work-up in the ED revealed high-grade distal small bowel obstruction 08/30 Patient's white blood cells were elevated at urgent care yesterday the double to 50 today. Patient states that his history of abnormal white blood cell counts and typically run high although I do not see that on our lab history. He is afebrile, nontoxic-appearing. He actually feels better since the drainage via the NG tube. And slept okay. He has not had any flatus or bowel movement since admission. Abdominal and back pain are little better. *I discussed the case with hematology (Dr. Singh) regarding his significant leukocytosis. Given the fact that the patient appears nontoxic and there is no obvious source of infection. No bandemia, Afebrile. UA is pending but has no complaints. No respiratory complaints. Overall feeling improvement from yesterday. And most importantly the peripheral smear excluded an acute leukemia. It was felt that the patient could be followed-up outpt with Hematology. I will also trend cbc. 08/31 Patient states he is feeling okay and slept fine. Abdominal pain similar to yesterday, not too bad. Failing to progress and will go to the OR today. No BMs overnight. at bedside. 09/01 Seems to be doing well. No new complaints. Improving urine output. Improving renal function. Passed flatus but no BMs. 09/02 Patient started having nausea vomiting overnight. Seen by general surgeon this morning and made n.p.o. and NG tube to be placed. Review of Systems: denies headache/fever/chills/chest pain/cough/dyspnea/diarrhea. Otherwise see above. Constitutional Vitals: Vital Signs Temp Pulse Resp BP Pulse Ox 97.8 F 107 H 22 139/86 90 09/02/20 02:47 09/02/20 02:47 09/02/20 02:47 09/02/20 02:47 09/02/20 02:47 Period Temp Pulse Resp BP Sys/Olson Pulse Ox Last 24 Hr 97.8 F-99.0 F 88-116 20-24 122-157/72-90 90-94 Intake and Output 09/01/20 09/02/20 09/02/20 21:59 05:59 13:59 Intake Total 1974 200 Output Total 350 425 Balance 1625 -225 Weight 75.614 kg Intake & Output: Intake & Output 09/01/20 09/02/20 09/02/20 21:59 05:59 13:59 Intake Total 1974 200 Output Total 350 425 Balance 1625 -225 Weight 75.614 kg Intake: IV 1974 Sodium Chloride 0.9% 1,000 ml @ 1974 90 mls/hr IV .Q11H7M [facility] Rx#: [id number] Oral 200 Output: Urine Catheter Amount 350 425 Other: Urine Appearance Clear Clear Uretheral (Sweet) Clear Urine Color Dark Yellow Dark Yellow Light Trena Light Trena Uretheral (Sweet) Light Trena Urine Odor Strong Uretheral (Sweet) Strong Exam: General: Alert, Awake, No acute Distress Eyes/N/T: EOMI, right eye blind Head/Neck: neck supple, CV: RRR, No murmurs, Pulm: Clear b/l, no wheezing/rhonchi/rales Abd: soft, decreased BS Ext: no clubbing/cyanosis/edema Neuro: Alert, no focal deficits, moves all extremities, Skin: warm/dry OBJ DATA Labs CBC & Chem 7: 08/31/20 05:31 09/02/20 05:20 Labs: Abnormal Lab Results 09/02/20 09/01/20 09/01/20 05:20 15:00 05:51 WBC RBC Hgb Hct POC Hct 38 L Plt Count MPV Lymph % (Auto) [place] % (Auto) [place] # (Auto) Lymphocytes % Monocytes % (Manual) Absolute Neutrophils POC BUN 49 H BUN 47 H 56 H Creatinine 1.8 H POC Creatinine 1.6 H Glucose 148 H POC Glucose 138 H Uric Acid 9.0 H 9.1 H Calcium 8.4 L 8.2 L POC WB Ioniz Calcium 0.88 L Lactate Dehydrogenase 412 H 396 H Albumin 2.9 L 2.9 L Albumin/Globulin Ratio 0.8 L 0.9 L Procalcitonin Urine Appearance Urine Protein Urine RBC Calcium Oxalate Crystal Hyaline Casts Urine Mucus 08/31/20 08/31/20 08/30/20 05:31 05:30 15:07 WBC 44.4 H* RBC 4.40 L Hgb 12.8 L Hct 40.9 L POC Hct Plt Count 138 L MPV 13.9 H Lymph % (Auto) 3.6 L [place] % (Auto) 30.2 H [place] # (Auto) 13.39 H Lymphocytes % Monocytes % (Manual) Absolute Neutrophils 29.16 H POC BUN BUN 58 H Creatinine 2.7 H POC Creatinine Glucose 157 H POC Glucose Uric Acid Calcium POC WB Ioniz Calcium Lactate Dehydrogenase Albumin Albumin/Globulin Ratio Procalcitonin Urine Appearance Cloudy A Urine Protein 100 A Urine RBC 22 H Calcium Oxalate Crystal Few A Hyaline Casts 19 H Urine Mucus Many A 08/30/20 08/30/20 06:44 05:10 WBC RBC Hgb Hct POC Hct Plt Count MPV Lymph % (Auto) [place] % (Auto) [place] # (Auto) Lymphocytes % 3 L Monocytes % (Manual) 25 H Absolute Neutrophils POC BUN BUN Creatinine POC Creatinine Glucose POC Glucose Uric Acid Calcium POC WB Ioniz Calcium Lactate Dehydrogenase Albumin Albumin/Globulin Ratio Procalcitonin 0.29 H Urine Appearance Urine Protein Urine RBC Calcium Oxalate Crystal Hyaline Casts Urine Mucus Meds: Medications Docusate Sodium (Docusate Sodium 100 Mg Capsule) 100 mg PO BID [facility] Last Admin: 09/01/20 20:57 Dose: Not Given Documented by: Sodium Chloride (Sodium Chloride 0.9%) 1,000 mls @ 90 mls/hr IV .Q11H7M [facility] Last Admin: 09/02/20 03:11 Dose: Not Given Documented by: Methylprednisolone Sodium Succinate (Methylprednisolone Sod Succ 40 Mg/Ml Vial) 4 mg IV DAILY [facility] Last Admin: 09/01/20 08:23 Dose: 4 mg Documented by: Morphine Sulfate (Morphine 2 Mg/Ml Vial) 2 mg IV Q1HP PRN; Protocol PRN Reason: Chest Pain Last Admin: 09/02/20 04:36 Dose: 2 mg Documented by: Ondansetron HCl (Ondansetron 4 Mg/2 Ml Vial) 4 mg IV Q4HP PRN PRN Reason: Nausea And Vomiting Last Admin: 09/02/20 03:07 Dose: 4 mg Documented by: Senna (Sennosides 1 Tablet) 2 tab PO HS [facility] Last Admin: 09/01/20 20:58 Dose: Not Given Documented by: Sodium Chloride (0.9 % Sodium Chloride 10 Ml Syringe) 10 ml IV Q8 [facility] Last Admin: 09/02/20 04:17 Dose: Not Given Documented by: A/P Narrative A/P Narrative: A: *pSBO from gallstone in ileocecal valve: s/p ex-lap w/enterotomy and removal of gallstone (08/31) *Leukocytosis: 24k @urgent care, up to 50k. Pt states h/o elevated WBC although I do not see that on our old labs. -I discussed the case with hematology (Dr. Singh) regarding his significant leukocytosis. Given the fact that the patient appears nontoxic and there is no obvious source of infection. No bandemia, Afebrile, crp low. UA is pending but has no complaints. No respiratory complaints. Overall feeling improvement from yesterday. And most importantly the peripheral smear excluded an acute leukemia. It was felt that the patient could be followed-up outpt with Hematology. 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 no hydro -1.4@ urgent care, still 1.4. -worsened initially but improved since surgery and continued IVF's *RA: Follows Dr. Jacinto -Is on leflunomide and chronic prednisone *Chronic mild thrombocytopenia: *Anemia, chronic: *h/o B-cell Lymphoma & Prostate CA with ongoing anemia/thrombocytopenia & monocytosis: -received chemotherapy and radical prostatectomy *Suspect underlying early dementia vs MCI with sundowning: P: -awaiting bowel function -Small bowel obstruction per surgeon -Diet per surgeon -IVF's continue -monitor UOP/renal fxn -Continue prednisone (IV methylprednisolone while npo) -Ambulation -incidental AAA 3cm, f/u ultrasound in 1- year -ppx: SCD per surgeon Time Spent With Patient Time: Total time spent is greater than 50% in coordination of care (as documented) at patient's floor/unit and/or counseling patient: QUALITY VTE Deep Vein Thrombosis/Pulmonary Embolism Present on Admission: No
[2020-09-02] MEDS: DEXTROSE 5%-1/2NS W/10MEQ KCL 1,000 ML IV SCH ×2 (08:16→20:59)
--- NOTE | 2020-09-02 08:20 | Surgical Pathology Report ---
Histology Microscopic Diagnosis Specimen A- GALLSTONE, EXTRACTION: --- GALLSTONE (GROSS DIAGNOSIS). (DMT:adj) Clinical History Ileal stricture. Gross Description Received in formalin designated gallstone ileus, is a 2.6 cm in greatest dimension black-brown to green-gonzalez stone. Grossly only, no sections taken. (KGW:adj) Electronically Signed Edilson Nava MD, FCAP Electronically Signed 09/02/2020 08:18
[2020-09-02] MEDS: DOCUSATE SODIUM 100 MG CAPSULE PO SCH ×2 (11:02→21:00)
[2020-09-02] MEDS: methylPREDNISolone SOD SUCC 40 MG/ML VIAL IV SCH (11:20)
--- NOTE | 2020-09-02 16:11 | General Surgery Progress Note ---
SUBJECTIVE Subjective Patient information: Note initiated : 09/02/20 at 4:10 pm Service Date, if different from initiated Date: [] Patient: Roland Middleton 80 y/o M admitted on 08/29/20 for Small bowel/ abd pain. Chief Complaint: [] Interval history: Postop day #2 status post exploratory laparotomy, removal of gallstone ileus. Overnight patient was feeling more distended, more bloated than what he was yesterday. He has had several bouts of emesis this morning. Constitutional Vitals: Vital Signs Temp Pulse Resp BP Pulse Ox 98.4 F 93 H 18 138/81 94 09/02/20 12:00 09/02/20 12:00 09/02/20 12:00 09/02/20 12:00 09/02/20 12:00 Period Temp Pulse Resp BP Sys/Olson Pulse Ox Last 24 Hr 97.7 F-99.0 F 88-116 18-24 122-147/72-90 90-94 Intake and Output 09/02/20 09/02/20 09/02/20 05:59 13:59 21:59 Intake Total 200 1000 Output Total 425 1800 Balance -225 -800 Intake & Output: Intake & Output 09/02/20 09/02/20 09/02/20 05:59 13:59 21:59 Intake Total 200 1000 Output Total 425 1800 Balance -225 -800 Intake: IV 1000 Sodium Chloride 0.9% 1,000 ml @ 1000 90 mls/hr IV .Q11H7M [facility] Rx#: [id number] Oral 200 Output: Gastric Drainage 1800 Right Nare NG/OG 1800 Urine Catheter Amount 425 Other: Urine Appearance Clear Clear Uretheral (Sweet) Clear Urine Color Dark Yellow Dark Yellow Light Trena Light Trena Uretheral (Sweet) Light Trena Urine Odor Strong Uretheral (Sweet) Strong General appearance: cooperative and mild distress GI/Abdominal GI/Abdominal exam: Present soft, distended and tenderness (Generalized tenderness without peritoneal signs.) A/P Narrative A/P Narrative: Postoperative day #2, continued ileus. N.p.o., NG tube. Encourage ambulation. Time Spent With Patient Time: Total time spent is greater than 50% in coordination of care (as documented) at patient's floor/unit and/or counseling patient:
[2020-09-02] MEDS: SENNOSIDES 1 TABLET PO SCH (21:00)
[2020-09-03] MEDS: 0.9 % SODIUM CHLORIDE 10 ML SYRINGE IV SCH ×3 (04:16→21:53)
[2020-09-03] MEDS: HYDROmorphone 1 MG/ML SYRINGE IV PRN ×3 (07:25→21:53)
--- NOTE | 2020-09-03 07:28 | Internal Med Progress Note ---
SUBJECTIVE Subjective Patient information: Note initiated : 09/03/20 at 7:25 am Service Date, if different from initiated Date: [] Patient: Roland Middleton 80 y/o M admitted on 08/29/20 for Small bowel/ abd pain. Chief Complaint: [] Interval history: nterval history: Presents the ED after going to [facility] for small bowel obstruction. His abdominal pain started on Tuesday and described as crampy as well as sharp. Last bowel movement was on Tuesday said was soft. Had an episode nausea vomiting other day. No fever chills or any other complaints. Work-up in the ED revealed high-grade distal small bowel obstruction 08/30 Patient's white blood cells were elevated at urgent care yesterday the double to 50 today. Patient states that his history of abnormal white blood cell counts and typically run high although I do not see that on our lab history. He is afebrile, nontoxic-appearing. He actually feels better since the drainage via t he NG tube. And slept okay. He has not had any flatus or bowel movement since admission. Abdominal and back pain are little better. *I discussed the case with hematology (Dr. Singh) regarding his significant leukocytosis. Given the fact that the patient appears nontoxic and there is no obvious source of infection. No bandemia, Afebrile. UA is pending but has no complaints. No respiratory complaints. Overall feeling improvement from yesterday. And most importantly the peripheral smear excluded an acute leukemia. It was felt that the patient could be followed-up outpt with Hematology. I will also trend cbc. 08/31 Patient states he is feeling okay and slept fine. Abdominal pain similar to yesterday, not too bad. Failing to progress and will go to the OR today. No BMs overnight. at bedside. 09/01 Seems to be doing well. No new complaints. Improving urine output. Improving renal function. Passed flatus but no BMs. 09/02 Patient started having nausea vomiting overnight. Seen by general surgeon this morning and made n.p.o. and NG tube to be placed. 09/03 Slept better last night. He is have multiple bowel movements. Feeling better. No nausea. Review of Systems: denies headache/fever/chills/nausea/vomiting/chest or abdominal pain/cough/dyspnea. Otherwise see above. Constitutional Vitals: Vital Signs Temp Pulse Resp BP Pulse Ox 97.5 F 80 18 123/74 97 09/03/20 03:40 09/03/20 03:40 09/03/20 03:40 09/03/20 03:40 09/03/20 03:40 Period Temp Pulse Resp BP Sys/Olson Pulse Ox Last 24 Hr 97.1 F-98.4 F 80-105 18-20 123-147/74-90 90-97 Intake and Output 09/02/20 09/03/20 09/03/20 21:59 05:59 13:59 Intake Total 1999 120 Output Total 2500 1900 Balance -500 -1780 Weight 75.523 kg Intake & Output: Intake & Output 09/02/20 09/03/20 09/03/20 21:59 05:59 13:59 Intake Total 1999 120 Output Total 2500 1900 Balance -500 -1780 Weight 75.523 kg Intake: IV 1000 Dextrose 5%-1/2Ns W/10Meq KCl 1 1000 ,000 ml @ 84 mls/hr IV .[id number] [facility] Rx#:[id number] Oral 1000 120 Tube Feeding 0 0 Output: Gastric Drainage 1900 1600 Right Nare NG/OG 1900 1600 Urine Catheter Amount 600 Void Amount 300 Other: Urine Appearance Clear Clear Uretheral (Sweet) Clear Urine Color Bright Yellow Bright Yellow Uretheral (Sweet) Bright Yellow Urine Odor Normal Normal Uretheral (Sweet) Normal Stool Size Small Large Stool Color Brown Brown Yellow Stool Consistency Watery Watery Watery # Bowel Movements 7 1 # of times incontinent of 1 1 Bowels Exam: General: Alert, Awake, No acute Distress Eyes/N/T: EOMI, right eye blind Head/Neck: neck supple, CV: RRR, No murmurs, Pulm: Clear b/l, no wheezing/rhonchi/rales Abd: soft, +BS Ext: no clubbing/cyanosis/edema Neuro: Alert, no focal deficits, moves all extremities, Skin: warm/dry OBJ DATA Labs CBC & Chem 7: 08/31/20 05:31 09/02/20 05:20 Labs: Abnormal Lab Results 09/02/20 09/01/20 09/01/20 05:20 15:00 05:51 WBC RBC Hgb Hct POC Hct 38 L Plt Count MPV Lymph % (Auto) Fergus % (Auto) Fergus # (Auto) Absolute Neutrophils POC BUN 49 H BUN 47 H 56 H Creatinine 1.8 H POC Creatinine 1.6 H Glucose 148 H POC Glucose 138 H Uric Acid 9.0 H 9.1 H Calcium 8.4 L 8.2 L POC WB Ioniz Calcium 0.88 L Lactate Dehydrogenase 412 H 396 H Albumin 2.9 L 2.9 L Albumin/Globulin Ratio 0.8 L 0.9 L 08/31/20 08/31/20 05:31 05:30 WBC 44.4 H* RBC 4.40 L Hgb 12.8 L Hct 40.9 L POC Hct Plt Count 138 L MPV 13.9 H Lymph % (Auto) 3.6 L Fergus % (Auto) 30.2 H Fergus # (Auto) 13.39 H Absolute Neutrophils 29.16 H POC BUN BUN 58 H Creatinine 2.7 H POC Creatinine Glucose 157 H POC Glucose Uric Acid Calcium POC WB Ioniz Calcium Lactate Dehydrogenase Albumin Albumin/Globulin Ratio Meds: Medications Docusate Sodium (Docusate Sodium 100 Mg Capsule) 100 mg PO BID [facility] Last Admin: 09/02/20 21:00 Dose: Not Given Documented by: Hydromorphone HCl (Hydromorphone 1 Mg/Ml Syringe) 0.5 mg IV Q2HP PRN; Protocol PRN Reason: Per Pain Protocol Potassium Chloride/Dextrose/Sod Cl (Dextrose 5%-1/2ns W/10meq Kcl) 1,000 mls @ 84 mls/hr IV .[id number] [facility] Last Admin: 09/02/20 20:59 Dose: 84 mls/hr Documented by: Methylprednisolone Sodium Succinate (Methylprednisolone Sod Succ 40 Mg/Ml Vial) 4 mg IV DAILY [facility] Last Admin: 09/02/20 11:20 Dose: 4 mg Documented by: Morphine Sulfate (Morphine 2 Mg/Ml Vial) 2 mg IV Q1HP PRN; Protocol PRN Reason: Chest Pain Last Admin: 09/02/20 04:36 Dose: 2 mg Documented by: Ondansetron HCl (Ondansetron 4 Mg/2 Ml Vial) 4 mg IV Q4HP PRN PRN Reason: Nausea And Vomiting Last Admin: 09/02/20 03:07 Dose: 4 mg Documented by: Senna (Sennosides 1 Tablet) 2 tab PO [facility] Last Admin: 09/02/20 21:00 Dose: Not Given Documented by: Sodium Chloride (0.9 % Sodium Chloride 10 Ml Syringe) 10 ml IV Q8 [facility] Last Admin: 09/03/20 04:16 Dose: Not Given Documented by: A/P Narrative A/P Narrative: A: *pSBO from gallstone in ileocecal valve: s/p ex-lap w/enterotomy and removal of gallstone (08/31) -improving *Leukocytosis: 24k @urgent care, up to 50k. Pt states h/o elevated WBC although I do not see that on our old labs. -I discussed the case with hematology (Dr. Singh) regarding his significant leukocytosis. Given the fact that the patient appears nontoxic and there is no obvious source of infection. No bandemia, Afebrile, crp low. UA is pending but has no complaints. No respiratory complaints. Overall feeling improvement from yesterday. And most importantly the peripheral smear excluded an acute leukemia. It was felt that the patient could be followed-up outpt with Hematology. 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 no hydro -1.4@ urgent care, still 1.4. -worsened initially but improved since surgery and continued IVF's *RA: Follows Dr. Jacinto -Is on leflunomide and chronic prednisone *Chronic mild thrombocytopenia: *Anemia, chronic: *h/o B-cell Lymphoma & Prostate CA with ongoing anemia/thrombocytopenia & monocytosis: -received chemotherapy and radical prostatectomy *Suspect underlying early dementia vs MCI with owning: P: -awaiting bowel function -Small bowel obstruction per surgeon -IVF's while npo -Diet per surgeon -monitor UOP/renal fxn -Continue prednisone (IV methylprednisolone while npo) -Ambulation -incidental AAA 3cm, f/u ultrasound in 1- year -f/u with Dr. Singh outpt for leukocytosis -ppx: SCD per surgeon Time Spent With Patient Time: Total time spent is greater than 50% in coordination of care (as documented) at patient's floor/unit and/or counseling patient: QUALITY VTE Deep Vein Thrombosis/Pulmonary Embolism Present on Admission: No
--- NOTE | 2020-09-03 09:22 | General Surgery Progress Note ---
SUBJECTIVE Subjective Patient information: Note initiated : 09/03/20 at 9:21 am Service Date, if different from initiated Date: [] Patient: Roland Middleton 80 y/o M admitted on 08/29/20 for Small bowel/ abd pain. Chief Complaint: [] Interval history: Postop day #3 status post exploratory laparotomy for gallstone ileus. Patient reports nausea has resolved, he is passing flatus and has multiple bowel movements. Feels much better today. Constitutional Vitals: Vital Signs Temp Pulse Resp BP Pulse Ox 97.3 F 80 18 125/79 91 09/03/20 07:34 09/03/20 07:34 09/03/20 07:34 09/03/20 07:34 09/03/20 07:34 Period Temp Pulse Resp BP Sys/Olson Pulse Ox Last 24 Hr 97.1 F-98.4 F 80-99 18-18 123-145/74-89 91-97 Intake and Output 09/02/20 09/03/20 09/03/20 21:59 05:59 13:59 Intake Total 1999 120 Output Total 2500 1900 Balance -500 -1780 Weight 166 lb 8 oz Intake & Output: Intake & Output 09/02/20 09/03/20 09/03/20 21:59 05:59 13:59 Intake Total 2000 120 Output Total 2500 1900 Balance -500 -1780 Weight 166 lb 8 oz Intake: IV 1000 Dextrose 5%-1/2Ns W/10Meq KCl 1 1000 ,000 ml @ 84 mls/hr IV .[id number] [facility] Rx#:[id number] Oral 1000 120 Tube Feeding 0 0 Output: Gastric Drainage 1900 1600 Right Nare NG/OG 1900 1600 Urine Catheter Amount 600 Void Amount 300 Other: Urine Appearance Clear Clear Uretheral (Sweet) Clear Urine Color Bright Yellow Bright Yellow Uretheral (Sweet) Bright Yellow Urine Odor Normal Normal Uretheral (Sweet) Normal Stool Size Small Large Stool Color Brown Brown Yellow Stool Consistency Watery Watery Watery # Bowel Movements 7 1 # of times incontinent of 1 1 Bowels General appearance: no acute distress GI/Abdominal GI/Abdominal exam: Present soft; Absent distended and tenderness A/P Narrative A/P Narrative: Feels much better today. We will DC NG tube, DC Sweet and start clear liquid diet. Time Spent With Patient Time: Total time spent is greater than 50% in coordination of care (as documented) at patient's floor/unit and/or counseling patient:
[2020-09-03] MEDS: DEXTROSE 5%-1/2NS W/10MEQ KCL 1,000 ML IV SCH ×2 (10:00→21:52)
[2020-09-03] MEDS: DOCUSATE SODIUM 100 MG CAPSULE PO SCH ×2 (10:01→21:53)
[2020-09-03] MEDS: methylPREDNISolone SOD SUCC 40 MG/ML VIAL IV SCH (14:50)
[2020-09-03] MEDS: SENNOSIDES 1 TABLET PO SCH (21:53)
[2020-09-04] MEDS: HYDROmorphone 1 MG/ML SYRINGE IV PRN (01:38)
[2020-09-04] MEDS: 0.9 % SODIUM CHLORIDE 10 ML SYRINGE IV SCH ×2 (04:00→12:10)
[2020-09-04] MEDS: DEXTROSE 5%-1/2NS W/10MEQ KCL 1,000 ML IV SCH (04:24)
[2020-09-04] MEDS: methylPREDNISolone SOD SUCC 40 MG/ML VIAL IV SCH (09:49)
[2020-09-04] MEDS: DOCUSATE SODIUM 100 MG CAPSULE PO SCH (09:49)
--- NOTE | 2020-09-04 11:12 | Internal Med Progress Note ---
SUBJECTIVE Subjective Patient information: Note initiated : 09/04/20 at 11:04 am Service Date, if different from initiated Date: [] Patient: Roladn Middleton 80 y/o M admitted on 08/29/20 for Small bowel/ abd pain. Interval history: Presents the ED after going to [facility] for small bowel obstruction. His abdominal pain started on Tuesday and described as crampy as well as sharp. Last bowel movement was on Tuesday said was soft. Had an episode nausea vomiting other day. No fever chills or any other complaints. Work-up in the ED revealed high-grade distal small bowel obstruction 08/30 Patient's white blood cells were elevated at urgent care yesterday the double to 50 today. Patient states that his history of abnormal white blood cell counts and typically run high although Que Forbes did do not see that on our lab history. He is afebrile, nontoxic-appearing. He actually feels better since the drainage via the NG tube. And slept okay. He has not had any flatus or bowel movement since admission. Abdominal and back pain are little better. *I [Dr. Grey] discussed the case with hematology (Dr. Singh) regarding his significant leukocytosis. Given the fact that the patient appears nontoxic and there is no obvious source of infection. No bandemia, Afebrile. UA is pending but has no complaints. No respiratory complaints. Overall feeling improvement from yesterday. And most importantly the peripheral smear excluded an acute leukemia. It was felt that the patient could be followed-up outpt with Hematology. I will also trend cbc. 08/31 Patient states he is feeling okay and slept fine. Abdominal pain similar to yesterday, not too bad. Failing to progress and will go to the OR today. No BMs overnight. at bedside. 09/01 Seems to be doing well. No new complaints. Improving urine output. Improving renal function. Passed flatus but no BMs. 09/02 Patient started having nausea vomiting overnight. Seen by general surgeon this morning and made n.p.o. and NG tube to be placed. 09/03 Slept better last night. He is have multiple bowel movements. Feeling better. No nausea. 09/04 No abdominal pain or nausea this morning. Complaining of some back pain. Tolerating diet. ROS: As above Constitutional Vitals: Vital Signs Temp Pulse Resp BP Pulse Ox 98.4 F 76 13 134/82 93 09/04/20 03:58 09/04/20 03:58 09/04/20 03:58 09/04/20 03:58 09/04/20 03:58 Period Temp Pulse Resp BP Sys/Olson Pulse Ox Last 24 Hr 97.5 F-98.4 F 75-83 13-24 119-134/70-82 92-95 Intake and Output 09/03/20 09/04/20 09/04/20 21:59 05:59 13:59 Intake Total 3206 238 6934 Output Total 551 1 Balance 265 830 9933 Weight 163 lb Intake & Output: Intake & Output 09/03/20 09/04/20 09/04/20 21:59 05:59 13:59 Intake Total 5046 478 8696 Output Total 551 1 Balance 450 190 7229 Weight 163 lb Intake: IV 1000 1000 Dextrose 5%-1/2Ns W/10Meq KCl 1 1000 1000 ,000 ml @ 90 mls/hr IV .[id number] [facility] Rx#:[id number] Oral 175 240 Output: Urine Catheter Amount 500 Uretheral (Sweet) 500 Void Amount 50 # of times incontinent of urine 1 1 Other: Urine Appearance Clear Uretheral (Sweet) Clear Urine Color Bright Yellow Uretheral (Sweet) Bright Yellow Urine Odor Uretheral (Sweet) Normal Stool Size Moderate Small Stool Color Abdelrahman Colored Brown Stool Consistency Liquid Watery Watery # Voids 1 # Bowel Movements 1 PHYSICAL EXAMINATION: GENERAL: No acute distress. CHEST: Chest with clear breath sounds bilaterally. CARDIAC: Regular rate and rhythm. ABDOMEN: Soft, mild postsurgical tenderness, bowel sounds active, nondistended MUSCULOSKELETAL: No cyanosis or edema. NEUROLOGIC EXAM: Alert and oriented x 3. No focal deficits. OBJ DATA Labs CBC & Chem 7: 08/31/20 05:31 09/02/20 05:20 Labs: Abnormal Lab Results 09/02/20 09/01/20 05:20 15:00 POC Hct 38 L POC BUN 49 H BUN 47 H POC Creatinine 1.6 H POC Glucose 138 H Uric Acid 9.0 H Calcium 8.4 L POC WB Ioniz Calcium 0.88 L Lactate Dehydrogenase 412 H Albumin 2.9 L Albumin/Globulin Ratio 0.8 L Meds: Medications Docusate Sodium (Docusate Sodium 100 Mg Capsule) 100 mg PO BID [facility] Last Admin: 09/04/20 09:49 Dose: Not Given Documented by: Hydromorphone HCl (Hydromorphone 1 Mg/Ml Syringe) 0.5 mg IV Q2HP PRN; Protocol PRN Reason: Per Pain Protocol Last Admin: 09/04/20 01:38 Dose: 0.5 mg Documented by: Potassium Chloride/Dextrose/Sod Cl (Dextrose 5%-1/2ns W/10meq Kcl) 1,000 mls @ 90 mls/hr IV .[id number] [facility] Last Infusion: 09/04/20 09:50 Dose: Infused Documented by: Methylprednisolone Sodium Succinate (Methylprednisolone Sod Succ 40 Mg/Ml Vial) 4 mg IV DAILY [facility] Last Admin: 09/04/20 09:49 Dose: Not Given Documented by: Morphine Sulfate (Morphine 2 Mg/Ml Vial) 2 mg IV Q1HP PRN; Protocol PRN Reason: Chest Pain Last Admin: 09/02/20 04:36 Dose: 2 mg Documented by: Ondansetron HCl (Ondansetron 4 Mg/2 Ml Vial) 4 mg IV Q4HP PRN PRN Reason: Nausea And Vomiting Last Admin: 09/02/20 03:07 Dose: 4 mg Documented by: Senna (Sennosides 1 Tablet) 2 tab PO HS [facility] Last Admin: 09/03/20 21:53 Dose: Not Given Documented by: Sodium Chloride (0.9 % Sodium Chloride 10 Ml Syringe) 10 ml IV Q8 [facility] Last Admin: 09/04/20 04:00 Dose: Not Given Documented by: A/P Narrative A/P Narrative: A: *pSBO from gallstone in ileocecal valve: s/p ex-lap w/enterotomy and removal of gallstone (08/31) -improving *Leukocytosis: 24k @urgent care, up to 50k. Pt states h/o elevated WBC although do not see that on our old labs. -Dr. Grey discussed the case with hematology (Dr. Singh) regarding his significant leukocytosis. Given the fact that the patient appears nontoxic and there is no obvious source of infection. No bandemia, Afebrile, crp low. UA is pending but has no complaints. No respiratory complaints. Overall feeling improved. And most importantly the peripheral smear excluded an acute leukemia. It was felt that the patient could be followed-up outpt with Hematology. 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 no hydro -1.4@ urgent care, still 1.4. -worsened initially but improved since surgery and continued IVF's -Last creatinine down to 1.2 *RA: Follows Dr. Jacinto -Is on leflunomide and chronic prednisone *Chronic mild thrombocytopenia: *Anemia, chronic: *h/o B-cell Lymphoma & Prostate CA with ongoing anemia/thrombocytopenia & monocytosis: -received chemotherapy and radical prostatectomy *Suspect underlying early dementia vs MCI with owning: P: -Small bowel obstruction per surgeon -Diet per surgeon -Continue prednisone (IV methylprednisolone while npo) -Discharge on home prednisone dose -If not discharged 3/4, will globe changer to oral prednisone in the morning -Ambulation -incidental AAA 3cm, f/u ultrasound in 1- year -f/u with Dr. Singh outpt for leukocytosis -ppx: SCD per surgeon Time Spent With Patient Total time spent with greater than 50% in coordination of care (as documented) at patient's floor/unit and/or counseling patient:: 15 - 24 minutes QUALITY VTE Deep Vein Thrombosis/Pulmonary Embolism Present on Admission: No
--- NOTE | 2020-09-04 14:35 | Discharge Plan ---
Discharge Plan Patient/Caregiver Discharge Instructions Activity: increase activity as tolerated Diet: Regular Diet Activity Restrictions/Additional Instructions: f/u with PCP regarding follow up of incidental AAA. Prescriptions: New hydrocodone-acetaminophen 5-325 mg tablet 1 tab PO Q6H PRN (Reason: pain) Qty: 14 RF: 0 No Action prednisone 5 mg tablet 5 mg PO QDAY Qty: 60 RF: 1 leflunomide 20 mg tablet 20 mg PO QDAY Qty: 90 RF: 1 Follow Up Plan Follow up with: Yvan Singh MD [Physician] - (for leukocytosis) Leyla Young MD [Primary Care Provider] - Patient Disposition: Home, Self-Care Hospital Course: This is a pleasant 80-year-old gentleman who originally presented to [facility] with initial signs and symptoms consistent with partial small bowel obstruction, conservative management was attempted which was unsuccessful. Patient was taken the operating room and exploratory laparotomy was significant for gallstone ileus. This was surgically taken care of and the patient progressed postoperatively without difficulty is now tolerating regular diet, ambulatory and pain controlled. Assessment: Gallstone ileus Plan of Treatment: Status post exploratory laparotomy Prognosis: Good Overall status at discharge: patient is progressing back to baseline Discharge Orders: Discharge Order (Routine); Ordered 09/04/20 Ordered By: Bridger Mandujano
== END 2020-09-04 16:20 | disposition home or self-care (01) | DRG 345 ==
LOC: ED 13:38 → MEDSUR 19:13
PROVIDERS: ADMIT Surgery; ATTEND Surgery

== ENCOUNTER 2022-12-20 11:29 | Inpatient (IN) ==
--- NOTE | 2022-12-20 11:35 | Emergency Department Note ---
HPI General Chief complaint: Shortness of Breath/Dyspnea Stated complaint: Heart Time Seen by Provider: 12/20/22 11:30 Source: patient Mode of arrival: ambulatory Limitations: no limitations History of Present Illness HPI Narrative: Narrative: Patient is an 82-year-old male with a history of of prostate cancer, large B- cell lymphoma, thrombocytopenia, and heart failure who presents to the emergency department due to shortness of breath. Patient was sent from [facility] due to concern for worsening of pneumonia despite being on antibiotics outpatient. He states that his shortness of breath has not changed since he was seen in the emergency department 4 days ago. He endorses worsening of shortness of breath with activity and when lying flat. He also endorses some chest pain when taking deep breaths. He also endorses coughing. He denies any other symptoms at this time. Related Data Home Medications Medication Instructions Recorded Confirmed calcium 600 mg-D3 800 unit-mag11 1 tab PO QDAY 11/06/21 12/20/22 50 zh-isou-pyblwu-manasa-s.borat tablet Previous Rx's Medication Instructions Recorded leflunomide 20 mg tablet 20 mg PO QDAY #90 tabs 06/20/22 ferrous sulfate 325 mg (65 mg 325 mg PO QDAY #30 tabs 12/16/22 iron) tablet Allergies Allergy/AdvReac Type Severity Reaction Status Date / Time No Known Drug Allergies Allergy Verified 12/20/22 11:33 Review of Systems ROS ROS Narrative: Narrative: Constitutional: Denies fever or weakness Eyes: Denies vision change ENT ED: Denies throat pain or rhinorrhea Cardiovascular: Reports dyspnea on exertion; Denies chest pain, orthopnea or edema Respiratory: Reports shortness of breath and cough Gastrointestinal: Denies abdominal pain, nausea, vomiting, diarrhea or constipation Musculoskeletal: Denies back pain or myalgia Integumentary: Denies rash or lesions Neurological: Denies headache, weakness or confusion [facility] Narrative Patient History Narrative: Narrative: Medical/Surgical/Family History All Active Problems (Updated 12/21/22 @ 07:45 by Shoaib Oewns MD) Rheumatoid arthritis (Chronic) Monocytosis (symptomatic) (Chronic) Malignant neoplasm of prostate (Chronic) Diffuse large b-cell lymphoma, extranodal and solid organ sites (Chronic) Anemia (Chronic) Thrombocytopenia (Chronic) Olecranon bursitis (Chronic) Rheumatoid nodules (Chronic) Polyarthralgia (Acute) ESR raised (Acute) Encounter for long-term (current) use of high-risk medication (Chronic) CRP elevated (Chronic) retirement (current) use of systemic steroids (Chronic) Dermatitis (Acute) Trigger finger (Acute) SBO (small bowel obstruction) (Acute) Immunosuppressed status (Acute) Abdominal wound dehiscence (Acute) Heart failure (Acute) Pneumonia (Acute) Elevated brain natriuretic peptide (BNP) level (Acute) Medical History Anemia CRP elevated Dermatitis Diffuse large b-cell lymphoma, extranodal and solid organ sites Encounter for long-term (current) use of high-risk medication ESR raised 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 Thrombocytopenia Trigger finger Surgical History History of abdominal prostatectomy History of bone marrow biopsy (11/09/18) History of colonoscopy History of esophagogastroduodenoscopy (EGD) History of laparotomy 08/31/2020-exploratory laparotomy for gallstone ileus History of shoulder surgery Right History of total bilateral knee replacement Hx of eye surgery Glass eye, right since quite young Family History Other No pertinent family history Social History Smoking Status: Never smoker Exam Narrative Narrative: Narrative: General Limitations: no limitations General appearance: Present alert and in no apparent distress; Absent anxious, appears intoxicated or sleepy Head Head: Present atraumatic and normocephalic Eye Eye: Present EOMI; Absent scleral icterus or nystagmus ENT ENT: Present mucous membranes moist; Absent nasal congestion Neck Neck: Present full ROM and trachea midline Chest Chest: Present normal inspection and symmetric chest wall rise Respiratory Respiratory: Present normal lung sounds bilaterally and rales/crackles; Absent respiratory distress, wheezes, stridor or accessory muscle use Cardiovascular Cardiovascular: Present regular rate, normal rhythm and normal heart sounds Adbominal Abdominal: Absent distention Extremities Extremities: Present normal inspection and full ROM; Absent pedal edema or pretibial edema Back Back: Present normal inspection and full ROM Neurological Neurological: Present alert and oriented X3 Psychiatric Psychiatric: Present normal affect and normal mood Skin Skin: Present warm (WNL), dry and normal color Course Vital Signs Vital signs: Vital Signs Temperature 97.2 F 12/20/22 11:31 Pulse Rate 83 12/20/22 11:31 Respiratory Rate 22 12/20/22 11:31 Blood Pressure 135/82 12/20/22 11:31 Pulse Oximetry (%) 95 12/20/22 11:31 Oxygen Delivery Method Room Air 12/20/22 11:31 Temperature 97.0 F 12/21/22 03:16 Pulse Rate 65 12/21/22 03:16 Respiratory Rate 26 H 12/21/22 03:16 Blood Pressure 118/69 12/21/22 03:16 Pulse Oximetry (%) 95 12/21/22 03:16 Oxygen Delivery Method Room Air 12/21/22 03:16 MDM MDM Narrative Medical decision making narrative: Narrative: Patient is an 82-year-old male who presents to the emergency department from [facility] due to concern for worsening pneumonia. Differential diagnoses include failure of outpatient therapy with worsened pneumonia, heart failure exacerbation, anemia, and pneumothorax. Patient's chest x-ray does demonstrate findings consistent with pneumonia, but also findings consistent with heart failure exacerbation. Labs do demonstrate an increased white blood cell count. There is also an elevated BNP, but this is decreased from the previous BNP. I have spoken to Dr. Bland and he has agreed to see and evaluate patient for admission. Lab Data 12/21/22 05:26 12/21/22 05:26 Labs: Lab Results 12/20/22 12/20/22 12/20/22 Range/Units 12:18 12:18 12:18 WBC 24.3 H (4.5-11.0) K/mcL RBC 3.11 L (4.63-6.08) M/mcL Hgb 7.9 L (13.7-17.5) g/dL Hct 26.2 L (40.1-51.0) % POC Hct (41-55) MCV 84.2 (80.0-100.0) fL MCH 25.4 L (26.0-34.0) pg MCHC 30.2 L (31.0-36.0) g/dL RDW 19.6 H (11.5-14.5) % Plt Count 205 (140-440) K/mcL MPV 12.3 (8.8-12.5) fL Immature Gran % (Auto) 5.1 H (0.0-0.5) % Neut % (Auto) 59.0 (38.0-78.0) % Lymph % (Auto) 8.1 L (15.5-49.0) % [place] % (Auto) 24.7 H (1.0-12.0) % Eos % (Auto) 2.3 (0.0-7.0) % Baso % (Auto) 0.8 (0.0-2.0) % Lymph # (Auto) 1.97 (1.50-4.80) K/mcL [place] # (Auto) 6.01 H (0.10-0.90) K/mcL Eos # (Auto) 0.56 (0.00-0.70) K/mcL Baso # (Auto) 0.20 (0.00-0.30) K/mcL Immature Gran # 1.23 H (0.00-0.05) K/mcl Absolute Neutrophils 14.36 H (1.80-8.00) K/mcL POC Sodium (133-145) POC Potassium (3.3-5.1) POC Chloride (96-108) POC Total CO2 (22-30) POC Anion Gap (8.0-16.0) POC BUN (6-20) POC Creatinine (0.6-1.2) POC Glucose (70-105) POC WB Ioniz Calcium (1.16-1.32) Iron (61-157) ug/dL TIBC (228-428) ug/dl Unsat Iron Binding (112-346) mcg/dL Transferrin % Sat (20-50) % Ferritin (30.0-400.0) ng/mL NT-Pro-B Natriuret Pep 6443.0 H (<450.0) pg/mL Procalcitonin 0.25 H (<0.10) ng/mL POC Troponin I (0.00-0.08) 12/20/22 12/20/22 12/20/22 Range/Units 12:18 12:19 12:20 WBC (4.5-11.0) K/mcL RBC (4.63-6.08) M/mcL Hgb (13.7-17.5) g/dL Hct (40.1-51.0) % POC Hct 28.0 L (41-55) MCV (80.0-100.0) fL MCH (26.0-34.0) pg MCHC (31.0-36.0) g/dL RDW (11.5-14.5) % Plt Count (140-440) K/mcL MPV (8.8-12.5) fL Immature Gran % (Auto) (0.0-0.5) % Neut % (Auto) (38.0-78.0) % Lymph % (Auto) (15.5-49.0) % [place] % (Auto) (1.0-12.0) % Eos % (Auto) (0.0-7.0) % Baso % (Auto) (0.0-2.0) % Lymph # (Auto) (1.50-4.80) K/mcL [place] # (Auto) (0.10-0.90) K/mcL Eos # (Auto) (0.00-0.70) K/mcL Baso # (Auto) (0.00-0.30) K/mcL Immature Gran # (0.00-0.05) K/mcl Absolute Neutrophils (1.80-8.00) K/mcL POC Sodium 139 (133-145) POC Potassium 3.6 (3.3-5.1) POC Chloride 101 (96-108) POC Total CO2 23.0 (22-30) POC Anion Gap 19.0 H (8.0-16.0) POC BUN 34 H (6-20) POC Creatinine 2.4 H (0.6-1.2) POC Glucose 128 H (70-105) POC WB Ioniz Calcium 1.02 L (1.16-1.32) Iron 15 L (61-157) ug/dL TIBC 164 L (228-428) ug/dl Unsat Iron Binding 149 (112-346) mcg/dL Transferrin % Sat 9 L (20-50) % Ferritin 421.5 H (30.0-400.0) ng/mL NT-Pro-B Natriuret Pep (<450.0) pg/mL Procalcitonin (<0.10) ng/mL POC Troponin I < 0.02 (0.00-0.08) EKG Data EKG #1: EKG attestation: Yes I reviewed and interpreted this EKG. EKG results narrative: Normal sinus rhythm with a rate of 70, equivocal axis, [place] 140, QRS of 102, QTc of 431, T wave flattening in leads I, aVL, III, aVF, and V6, and absence of ST elevation or depression. Discharge Plan Patient/Caregiver Discharge Instructions Pt seen by [employer]HEL WORKER/PA only: No Clinical Impression: Pneumonia, Elevated brain natriuretic peptide (BNP) level Patient Disposition: Xfer As Inpt ([facility]) Discharge Date/Time: 12/20/22 17:06
[2022-12-20 12:24] LABS: POC Calcium, Ionized 1.02 (1.16-1.32); POC Creatinine 2.4 (0.6-1.2); POC Potassium 3.6 (3.3-5.1)
[2022-12-20] MEDS ORDERED: FUROSEMIDE 100 MG/10 ML VIAL IV ONE (12:54)
[2022-12-20 13:10] LABS: Basophils % (Auto) 0.8 % (0.0-2.0); Eosinophils # (Auto) 0.56 K/mcL (0.00-0.70); Eosinophils % (Auto) 2.3 % (0.0-7.0); Hematocrit 26.2 % (40.1-51.0); Hemoglobin 7.9 g/dL (13.7-17.5); Lymphocytes # (Auto) 1.97 K/mcL (1.50-4.80); Lymphocytes % (Auto) 8.1 % (15.5-49.0); Mean Cell Volume 84.2 fL (80.0-100.0); Mean Corpuscular HGB Conc 30.2 g/dL (31.0-36.0); Mean Platelet Volume 12.3 fL (8.8-12.5); Monocytes # (Auto) 6.01 K/mcL (0.10-0.90); Monocytes % (Auto) 24.7 % (1.0-12.0); Platelet Count 205 K/mcL (140-440); RBC 3.11 M/mcL (4.63-6.08); Red Cell Distribution Width 19.6 % (11.5-14.5); WBC 24.3 K/mcL (4.5-11.0)
--- NOTE | 2022-12-20 13:11 | XRay Report ---
HISTORY: Short of breath, orthopnea, cough, pulmonary infiltrates FINDINGS: There is moderate consolidation in the left lung base with a superimposed pleural effusion. This has become worse since prior study done at 9:28 AM on same date. There is a milder alveolar infiltrate in the right lower lobe which has also enlarged. Small right-sided pleural effusion remains stable. The upper lung decker are clear. The heart size is normal. There is an old healed fracture of the right humeral head. IMPRESSION: Worsening infiltrates in both lung bases Interpreted and Authenticated by: Shaka Fall 12/20/22
[2022-12-20] MEDS ORDERED: PIPERACILLIN SODIUM/TAZOBACTAM 3.375 GM in DEXTROSE 5% IN WATER 50 ML IV ONE (13:16)
[2022-12-20] MEDS ORDERED: VANCOMYCIN 1,000 MG in 0.9 % SODIUM CHLORIDE 250 ML IV ONE (14:37)
--- NOTE | 2022-12-20 17:12 | Internal Med History&Physical ---
HPI History of Present Illness Patient information: Note initiated : 12/20/22 at 4:51 pm Service Date, if different from initiated Date: [] Patient: Roland Middleton a 82 y/o M admitted on for Heart. Chief Complaint: [] History of present illness: Mr. Middleton is a 82 year old with history of prostate cancer, large B-cell lymphoma, rheumatoid arthritis, long-term use of systemic steroids, chronic anemia, new diagnosis of CHF presented with worsening shortness of breath cough and some brownish sputum. Patient was seen in ER a week ago with shortness of breath, productive cough and some orthopnea he was already on Augmentin and azithromycin for pneumonia. Patient thinks that his symptoms coincided when he discontinued prednisone. Over the past 5 months he has been slowly tapered off prednisone which she had been taking for several years for rheumatoid arthritis. At that time chest x-ray showed bilateral infiltrate and effusion, Hemoccult was also positive. Patient was diagnosed with pneumonia and CHF, was given IV Lasix and ceftriaxone and was discharged on Lasix and iron supplementation. Patient has continued to get worse, he is short of breath, reports he has to take frequent breaks when ambulating within the household distance which is new for him, he endorses cough and some sputum. No fever or chills. No chest pain or palpitations. On presentation patient was tachypneic with respiratory rate 30, blood pressure stable, sats 100% on room air. Labs showed WBC 24,000 up to 14,000, Hb 7.9, normal electrolytes, POC Cr 2.4 up from 1.7 few days ago, proBNP 6443 [place] from 11181. Chest x-ray showed worsening infiltrates in both lung bases, moderate consolidation in left lung base with superimposed pleural effusion which has become worse since prior study, alveolar infiltrate in right lower lobe which is also enlarged, small right-sided pleural effusion remains stable.EKG with NSR rate of 70, equivocal axis, [place] 140, QRS of 102, QTc of 431, T wave flattening in leads I, aVL, III, aVF, and V6, and absence of ST elevation or depression. Admission was requested. Review of system Constitutional: Denies fever or weakness Eyes: Denies eye pain or vision change ENT ED: Denies throat pain, hearing loss or rhinorrhea Cardiovascular: Denies chest pain, dyspnea on exertion, orthopnea or edema Respiratory: Denies shortness of breath or cough Gastrointestinal: Denies abdominal pain, nausea, vomiting, diarrhea, constipation, hematochezia or melena Genitourinary: Denies dysuria, frequency, hematuria or incontinence Musculoskeletal: Denies back pain or myalgia Integumentary: Denies rash or lesions Neurological: Denies headache, weakness, numbness, confusion, abnormal gait or dizziness Psychiatric: Denies anxiety, suicidal thoughts or homicidal thoughts Endocrine: Denies fatigue or polyuria Hematological/Lymphatic: Denies easy bleeding or easy bruising Physical examination General appearance: Present alert and in no apparent distress; Absent anxious, appears intoxicated or sleepy Head Head: Present normocephalic; Absent atraumatic Eye Eye: Present PERRL, EOMI and visual decker intact; Absent scleral icterus or nystagmus ENT ENT: Present mucous membranes moist; Absent nasal congestion Neck Neck: Present full ROM; Absent tenderness Chest Chest: Present normal inspection, symmetric chest wall rise and tenderness Respiratory Respiratory: Present reduced air entry particularly in the bases, no respiratory distress, satting well on room air Cardiovascular Cardiovascular: Present regular rate, normal rhythm and questionable systolic murmur over precordium, no peripheral edema Adbominal Abdominal: Present soft and normal bowel sounds; Absent distention or tenderness Rectal Rectal: Present deferred Extremities Extremities: Present normal inspection and full ROM; Absent tenderness Back Back: Present normal inspection and full ROM; Absent tenderness Neurological Neurological: Present alert, oriented X3, CN II-XII intact, normal gait and reflexes normal; Absent motor sensory deficit Psychiatric Psychiatric: Present normal affect and normal mood Skin Skin: Present warm (WNL), dry and normal color Assessment and plan Sepsis, presented with tachypnea respiratory rate 30, leukocytosis of 24,000 and suspected source. Patient started on IV antibiotics, blood cultures obtained Pneumonia, chest x-ray with worsening infiltrates in both lung bases, moderate consolidation in left lung base with superimposed pleural effusion which has become worse since prior study, alveolar infiltrate in right lower lobe which is also enlarged, small right-sided pleural effusion remains stable. Patient with worsening leukocytosis of 24,000. Start patient on empiric antibiotic coverage with vancomycin and Zosyn. Obtain procalcitonin. Obtain CT chest to further evaluate lung parenchyma and pleural effusion. Acute congestive heart failure. Chest x-ray with pleural effusion. BNP is still 6000 down from 14,000. Received Lasix in ED. Will give IV Lasix 40 mg twice daily. Echocardiogram ordered Acute respiratory failure. Patient is dyspneic and tachypneic however not hypoxic. Acute on chronic anemia. Apparently Hemoccult was positive. We will start patient on PPI. Will obtain iron profile. Will repeat fecal occult blood. Will give IV Venofer. Rheumatoid arthritis, continue leflunomide 20 mg daily Long-term use of systemic steroid. Patient had been on prednisone for many years and finished his prednisone taper 2 weeks ago. Large B-cell lymphoma, appears stable Generalized weakness/physical deconditioning. Secondary to above. PT eval DVT prophylaxis with SCDs Full code Total time taken > 70 min PFSH PFSH All Active Problems (Updated 12/16/22 @ 16:28 by Vicki Campbell PA-C) Rheumatoid arthritis (Chronic) Monocytosis (symptomatic) (Chronic) Malignant neoplasm of prostate (Chronic) Diffuse large b-cell lymphoma, extranodal and solid organ sites (Chronic) Anemia (Chronic) Thrombocytopenia (Chronic) Olecranon bursitis (Chronic) Rheumatoid nodules (Chronic) Polyarthralgia (Acute) ESR raised (Acute) Encounter for long-term (current) use of high-risk medication (Chronic) CRP elevated (Chronic) FPC (current) use of systemic steroids (Chronic) Dermatitis (Acute) Trigger finger (Acute) SBO (small bowel obstruction) (Acute) Immunosuppressed status (Acute) Abdominal wound dehiscence (Acute) Heart failure (Acute) Medical History Anemia CRP elevated Dermatitis Diffuse large b-cell lymphoma, extranodal and solid organ sites Encounter for long-term (current) use of high-risk medication ESR raised History of pneumonia FPC (current) use of systemic steroids Malignant neoplasm of prostate Monocytosis (symptomatic) Olecranon bursitis Polyarthralgia Rheumatoid arthritis Rheumatoid nodules SBO (small bowel obstruction) Status post exploratory laparotomy per gallstone ileus. Thrombocytopenia Trigger finger Surgical History History of abdominal prostatectomy History of bone marrow biopsy (11/09/18) History of colonoscopy History of esophagogastroduodenoscopy (EGD) History of laparotomy 08/31/2020-exploratory laparotomy for gallstone ileus History of shoulder surgery Right History of total bilateral knee replacement Hx of eye surgery Glass eye, right since quite young Family History Other No pertinent family history Social History marital status: smoking status: Former smoker MEDS/ALLERGIES Home Medications and Allergies Home Medications Medication Instructions Recorded Confirmed Type calcium 600 mg-D3 800 unit-mag11 1 tab PO QDAY 11/06/21 12/20/22 History 50 ea-tvfo-rbkkcq-manasa-s.borat tablet leflunomide 20 mg tablet 20 mg PO QDAY #90 tabs 06/20/22 12/20/22 Rx ferrous sulfate 325 mg (65 mg 325 mg PO QDAY #30 tabs 12/16/22 12/20/22 Rx iron) tablet Allergies Allergy/AdvReac Type Severity Reaction Status Date / Time No Known Drug Allergies Allergy Verified 12/20/22 11:33 EXAM Constitutional Vitals: Temp Pulse Resp BP Pulse Ox O2 Del Method 97.2 F 79 32 H 131/73 96 Room Air 12/20/22 11:31 12/20/22 16:31 12/20/22 16:39 12/20/22 16:31 12/20/22 16:31 12/20/22 11:31 DATA Data Completed and Pending Labs: Labs from last 24 hours 12/20/22 12/20/22 12/20/22 12:20 12:19 12:18 WBC RBC Hgb Hct POC Hct 28.0 L MCV MCH MCHC RDW Plt Count MPV Immature Gran % (Auto) Neut % (Auto) Lymph % (Auto) [place] % (Auto) Eos % (Auto) Baso % (Auto) Lymph # (Auto) [place] # (Auto) Eos # (Auto) Baso # (Auto) Immature Gran # Absolute Neutrophils POC Sodium 139 POC Potassium 3.6 POC Chloride 101 POC Total CO2 23.0 POC Anion Gap 19.0 H POC BUN 34 H POC Creatinine 2.4 H POC Glucose 128 H POC WB Ioniz Calcium 1.02 L NT-Pro-B Natriuret Pep 6443.0 H POC Troponin I < 0.02 12/20/22 12:18 WBC 24.3 H RBC 3.11 L Hgb 7.9 L Hct 26.2 L POC Hct MCV 84.2 MCH 25.4 L MCHC 30.2 L RDW 19.6 H Plt Count 205 MPV 12.3 Immature Gran % (Auto) 5.1 H Neut % (Auto) 59.0 Lymph % (Auto) 8.1 L [place] % (Auto) 24.7 H Eos % (Auto) 2.3 Baso % (Auto) 0.8 Lymph # (Auto) 1.97 [place] # (Auto) 6.01 H Eos # (Auto) 0.56 Baso # (Auto) 0.20 Immature Gran # 1.23 H Absolute Neutrophils 14.36 H POC Sodium POC Potassium POC Chloride POC Total CO2 POC Anion Gap POC BUN POC Creatinine POC Glucose POC WB Ioniz Calcium NT-Pro-B Natriuret Pep POC Troponin I A/P Time Spent With Patient Time: Total time spent is greater than 50% in coordination of care (as documented) at patient's floor/unit and/or counseling patient:
[2022-12-20] MEDS ORDERED: PIPERACILLIN SODIUM/TAZOBACTAM 3.375 GM in DEXTROSE 5% IN WATER 50 ML IV SCH (17:41)
[2022-12-20] MEDS ORDERED: ONDANSETRON 4 MG/2 ML VIAL IV PRN (17:41)
[2022-12-20] MEDS ORDERED: ONDANSETRON 4 MG ODT TABLET SL PRN (17:41)
[2022-12-20 19:16] LABS: Ferritin 421.5 ng/mL (30.0-400.0)
[2022-12-20] MEDS: PIPERACILLIN SODIUM/TAZOBACTAM 2.25 GM in DEXTROSE 5% IN WATER 50 ML IV SCH ×2 (19:29→23:04)
--- NOTE | 2022-12-20 19:30 | Cat Scan Report ---
History: Pneumonia, short of breath, CHF TECHNIQUE: The chest was imaged without contrast in axial plane at 2.5 mm intervals. Sagittal and coronal reformats were created. The radiation exposure was limited using dose reduction technology. FINDINGS: There is a large partially loculated left-sided pleural effusion and a moderate size layering right-sided pleural effusion. There may be mild loculation of the fluid posteriorly in the right upper thorax. The effusions have enlarged compared with the recent chest x-rays. There is significant compressive atelectasis in the left lower lobe and inferior segment of the lingula. Milder compressive atelectasis is present in the posterior basal segments of right lower lobe. Underlying pneumonia cannot be excluded. There is mild emphysema with multiple small small to intermediate sized subpleural bulla, predominantly involving the upper lobes. No lung mass is detected. The heart is normal in size and contour. Moderate amount calcified plaque is present in the coronary arteries. Aorta is normal in caliber. There is no evidence of pulmonary edema. No ascites is seen in the upper abdomen. IMPRESSION: Enlarging bilateral pleural effusions with compressive atelectasis in both lung bases, left greater than right. Emphysema Interpreted and Authenticated by: Shaka Fall 12/20/22
[2022-12-20] MEDS: AZITHROMYCIN 500 MG in DEXTROSE 5% IN WATER 250 ML IV SCH (20:00)
[2022-12-20] MEDS: PANTOPRAZOLE 40 MG TABLET PO SCH (20:00)
[2022-12-20] MEDS: 0.9 % SODIUM CHLORIDE 10 ML SYRINGE IV SCH (20:01)
[2022-12-20] MEDS: ACETAMINOPHEN 325 MG TABLET PO PRN (23:04)
[2022-12-21] MEDS: 0.9 % SODIUM CHLORIDE 10 ML SYRINGE IV SCH ×3 (05:05→20:32)
[2022-12-21] MEDS: PIPERACILLIN SODIUM/TAZOBACTAM 2.25 GM in DEXTROSE 5% IN WATER 50 ML IV SCH ×4 (05:05→23:35)
[2022-12-21 06:22] LABS: Eosinophils # (Auto) 0.59 K/mcL (0.00-0.70); Eosinophils % (Auto) 2.8 % (0.0-7.0); Hematocrit 25.7 % (40.1-51.0); Lymphocytes # (Auto) 2.13 K/mcL (1.50-4.80); Lymphocytes % (Auto) 10.3 % (15.5-49.0); Mean Cell Volume 82.9 fL (80.0-100.0); Mean Corpuscular HGB Conc 31.1 g/dL (31.0-36.0); Mean Platelet Volume 12.1 fL (8.8-12.5); Monocytes # (Auto) 5.36 K/mcL (0.10-0.90); Monocytes % (Auto) 25.8 % (1.0-12.0); Neutrophils % (Auto) 54.1 % (38.0-78.0); Platelet Count 201 K/mcL (140-440); Red Cell Distribution Width 19.5 % (11.5-14.5); WBC 20.8 K/mcL (4.5-11.0)
[2022-12-21 06:34] LABS: Vancomycin,Random 11.3 ug/mL
[2022-12-21 06:40] LABS: ALT/SGPT 14 U/L (<40); AST/SGOT 14 U/L (<40); Albumin 3.1 gm/dL (3.2-5.2); Albumin/Globulin Ratio 0.7 (1.0-2.3); Alkaline Phosphatase 88 U/L (39-117); Bilirubin,Total 0.4 mg/dL (0.1-1.0); Blood Urea Nitrogen 34 mg/dL (8-23); Calcium 8.4 mg/dL (8.6-10.4); Carbon Dioxide 25 mmol/L (22-30); Chloride 100 mmol/L (96-108); Globulin 4.2 gm/dL (2.2-3.7); Glomerular Filtration Rate 30; Glucose 102 mg/dL (70-105)
[2022-12-21] MEDS: FUROSEMIDE 40 MG/4 ML VIAL IV SCH ×2 (07:59→16:46)
[2022-12-21] MEDS ORDERED: IRON SUCROSE COMPLEX 200 MG in 0.9 % SODIUM CHLORIDE 250 ML IV SCH (09:00)
[2022-12-21] MEDS ORDERED: VANCOMYCIN PER PHARMACY IV SCH (09:00)
[2022-12-21] MEDS: AZITHROMYCIN 500 MG in DEXTROSE 5% IN WATER 250 ML IV SCH (09:54)
--- NOTE | 2022-12-21 11:06 | Internal Med Progress Note ---
SUBJECTIVE Subjective Patient information: Note initiated : 12/21/22 at 11:05 am Service Date, if different from initiated Date: [] Patient: Roland Middleton a 82 y/o M admitted on 12/20/22 for Heart/ SOB, dispneia. Chief Complaint: [] Additional PMFSH (Level 3 Only): Mr. Middleton is a 82 year old with history of prostate cancer, large B-cell lymphoma, rheumatoid arthritis, long-term use of systemic steroids, chronic anemia, new diagnosis of CHF presented with worsening shortness of breath cough and some brownish sputum. Patient was seen in ER a week ago with shortness of breath, productive cough and some orthopnea he was already on Augmentin and a zithromycin for pneumonia. Patient thinks that his symptoms coincided when he discontinued prednisone. Over the past 5 months he has been slowly tapered off prednisone which she had been taking for several years for rheumatoid arthritis. At that time chest x-ray showed bilateral infiltrate and effusion, Hemoccult was also positive. Patient was diagnosed with pneumonia and CHF, was given IV Lasix and ceftriaxone and was discharged on Lasix and iron supplementation. Patient has continued to get worse, he is short of breath, reports he has to take frequent breaks when ambulating within the household distance which is new for him, he endorses cough and some sputum. No fever or chills. No chest pain or palpitations. On presentation patient was tachypneic with respiratory rate 30, blood pressure stable, sats 100% on room air. Labs showed WBC 24,000 up to 14,000, Hb 7.9, normal electrolytes, POC Cr 2.4 up from 1.7 few days ago, proBNP 6443 [place] from [address]. Chest x-ray showed worsening infiltrates in both lung bases, moderate consolidation in left lung base with superimposed pleural effusion which has become worse since prior study, alveolar infiltrate in right lower lobe which is also enlarged, small right-sided pleural effusion remains stable.EKG with NSR rate of 70, equivocal axis, OK 140, QRS of 102, QTc of 431, T wave flattening in leads I, aVL, III, aVF, and V6, and absence of ST elevation or depression. Admission was requested. 12/21. Patient reports his breathing is better. He is on room air. WBC improved to 20,000 from 24,000 yesterday. He is tolerating vancomycin and Zosyn. CT chest showed bilateral pleural effusion with compressive atelectasis left great er than right. Hemoglobin is stable around 8, iron profile demonstrates low iron at 15, TIBC 164 low, transferrin saturation 9 low, ferritin 421 high. He will start IV Venofer today Review of system Constitutional: Denies fever or weakness Eyes: Denies eye pain or vision change ENT ED: Denies throat pain, hearing loss or rhinorrhea Cardiovascular: Denies chest pain, dyspnea on exertion, orthopnea or edema Respiratory: Denies shortness of breath or cough Gastrointestinal: Denies abdominal pain, nausea, vomiting, diarrhea, constipation, hematochezia or melena Genitourinary: Denies dysuria, frequency, hematuria or incontinence Musculoskeletal: Denies back pain or myalgia Integumentary: Denies rash or lesions Neurological: Denies headache, weakness, numbness, confusion, abnormal gait or dizziness Psychiatric: Denies anxiety, suicidal thoughts or homicidal thoughts Endocrine: Denies fatigue or polyuria Hematological/Lymphatic: Denies easy bleeding or easy bruising Physical examination General appearance: Present alert and in no apparent distress; Absent anxious, appears intoxicated or sleepy Head Head: Present normocephalic; Absent atraumatic Eye Eye: Present PERRL, EOMI and visual decker intact; Absent scleral icterus or nystagmus ENT ENT: Present mucous membranes moist; Absent nasal congestion Neck Neck: Present full ROM; Absent tenderness Chest Chest: Present normal inspection, symmetric chest wall rise and tenderness Respiratory Respiratory: Present reduced air entry in the bases, no respiratory distress, satting well on room air Cardiovascular Cardiovascular: Present regular rate, normal rhythm and questionable systolic murmur over precordium, no peripheral edema Adbominal Abdominal: Present soft and normal bowel sounds; Absent distention or tenderness Rectal Rectal: Present deferred Extremities Extremities: Present normal inspection and full ROM; Absent tenderness Back Back: Present normal inspection and full ROM; Absent tenderness Neurological Neurological: Present alert, oriented X3, CN II-XII intact, normal gait and reflexes normal; Absent motor sensory deficit Psychiatric Psychiatric: Present normal affect and normal mood Skin Skin: Present warm (WNL), dry and normal color Assessment and plan Sepsis, presented with tachypnea respiratory rate 30, leukocytosis of 24,000 and suspected source. Patient started on IV antibiotics, blood cultures obtained Pneumonia, chest x-ray with worsening infiltrates in both lung bases, moderate consolidation in left lung base with superimposed pleural effusion which has become worse since prior study, alveolar infiltrate in right lower lobe which is also enlarged, small right-sided pleural effusion remains stable.CT chest showed bilateral pleural effusion with compressive atelectasis left greater than right. Patient presented with worsening leukocytosis of 24,000 which is now im proving on vancomycin and Zosyn. Acute congestive heart failure.CT chest showed bilateral pleural effusion with compressive atelectasis left greater than right. BNP is still 6000 down from 14,000. Continue IV Lasix 40 mg twice daily. Echocardiogram pending Acute respiratory failure. Patient is dyspneic and tachypneic however not hypoxic. Acute on chronic anemia. Hemoglobin is stable around 8, iron profile demonstrates low iron at 15, TIBC 164 low, transferrin saturation 9 low, ferritin 421 high. He will start IV Venofer today. In the past his Hemoccult was positive. Started patient on PPI. We will repeat fecal occult blood Rheumatoid arthritis, continue leflunomide 20 mg daily Long-term use of systemic steroid. Patient had been on prednisone for many years and finished his prednisone taper 2 weeks ago. Large B-cell lymphoma, appears stable Generalized weakness/physical deconditioning. Secondary to above. PT eval DVT prophylaxis with SCDs Full code Total time taken > 50 min Constitutional Vitals: Vital Signs Temp Pulse Resp BP Pulse Ox O2 Del Method 97.1 F 79 28 H 131/74 93 Room Air 12/21/22 08:00 12/21/22 08:00 12/21/22 08:00 12/21/22 08:00 12/21/22 08:00 12/21/22 08:00 Period Temp Pulse Resp BP Sys/Olson Pulse Ox O2 Del Method O2 Flow Rate Last 24 Hr 97.0 F-97.7 F 65-88 18-36 117-139/69-86 90-100 Room Air-Room Air Intake and Output 12/20/22 12/21/22 12/21/22 19:59 03:59 11:59 Intake Total 300 500 290 Output Total 201 300 Balance 300 299 -10 Weight 70.08 kg Intake & Output: Intake & Output 12/20/22 12/21/22 12/21/22 19:59 03:59 11:59 Intake Total 300 500 290 Output Total 201 300 Balance 300 299 -10 Weight 70.08 kg Intake: IV 300 350 50 Zithromax 500 mg In Dextrose 5% 250 in Water 250 ml @ 250 mls/hr IV Q24H [facility] Rx#:[id number] Zosyn 2.25 gm In Dextrose 5% in 100 50 Water 50 ml @ 100 mls/hr IV Q6H [facility] Rx#:[id number] Zosyn 3.375 gm In Dextrose 5% 50 in Water 50 ml @ 100 mls/hr IV ONCE ONE Rx#:[id number] Vancomycin 1,000 mg In Sodium 250 Chloride 0.9% 250 ml @ 250 mls/ hr IV ONCE ONE Rx#:[id number] Oral 150 240 Output: # of times incontinent of urine 1 Urine/Stool Mix 200 300 Other: Meal Breakfast Percent of Meal Consumed 75% Feeding Ability Independent Stool Size Moderate Stool Color Brown Brown Black Stool Consistency Soft Loose Loose OBJ DATA Labs 12/21/22 05:26 12/21/22 05:26 Labs: Abnormal Lab Results 12/21/22 12/21/22 12/20/22 05:26 05:26 12:20 WBC 20.8 H RBC 3.10 L Hgb 8.0 L Hct 25.7 L POC Hct 28.0 L MCH 25.8 L MCHC RDW 19.5 H Immature Gran % (Auto) 6.0 H Lymph % (Auto) 10.3 L Rincon % (Auto) 25.8 H Rincon # (Auto) 5.36 H Immature Gran # 1.24 H Absolute Neutrophils 11.25 H POC Anion Gap 19.0 H POC BUN 34 H BUN 34 H Creatinine 2.0 H POC Creatinine 2.4 H POC Glucose 128 H Calcium 8.4 L POC WB Ioniz Calcium 1.02 L Iron TIBC Transferrin % Sat Ferritin NT-Pro-B Natriuret Pep Albumin 3.1 L Globulin 4.2 H Albumin/Globulin Ratio 0.7 L Procalcitonin 12/20/22 12/20/22 12/20/22 12:18 12:18 12:18 WBC RBC Hgb Hct POC Hct MCH MCHC RDW Immature Gran % (Auto) Lymph % (Auto) Rincon % (Auto) Rincon # (Auto) Immature Gran # Absolute Neutrophils POC Anion Gap POC BUN BUN Creatinine POC Creatinine POC Glucose Calcium POC WB Ioniz Calcium Iron 15 L TIBC 164 L Transferrin % Sat 9 L Ferritin 421.5 H NT-Pro-B Natriuret Pep 6443.0 H Albumin Globulin Albumin/Globulin Ratio Procalcitonin 0.25 H 12/20/22 12:18 WBC 24.3 H RBC 3.11 L Hgb 7.9 L Hct 26.2 L POC Hct MCH 25.4 L MCHC 30.2 L RDW 19.6 H Immature Gran % (Auto) 5.1 H Lymph % (Auto) 8.1 L Rincon % (Auto) 24.7 H Rincon # (Auto) 6.01 H Immature Gran # 1.23 H Absolute Neutrophils 14.36 H POC Anion Gap POC BUN BUN Creatinine POC Creatinine POC Glucose Calcium POC WB Ioniz Calcium Iron TIBC Transferrin % Sat Ferritin NT-Pro-B Natriuret Pep Albumin Globulin Albumin/Globulin Ratio Procalcitonin Meds: Medications Acetaminophen (Acetaminophen 325 Mg Tablet) 650 mg PO Q6HP PRN; Protocol PRN Reason: Per Pain Protocol/Fever > 101 Last Admin: 12/20/22 23:04 Dose: 650 mg Furosemide (Furosemide 40 Mg/4 Ml Vial) 40 mg IV BIDD [facility] Last Admin: 12/21/22 07:59 Dose: 40 mg Azithromycin 500 mg/ Dextrose 250 mls @ 250 mls/hr IV Q24H [facility]; Protocol Stop: 12/24/22 18:59 Last Admin: 12/21/22 09:54 Dose: 250 mls/hr Piperacillin Sod/Tazobactam (Sod 2.25 gm/ Dextrose) 50 mls @ 100 mls/hr IV Q6H [facility] Stop: 12/27/22 17:59 Last Infusion: 12/21/22 05:35 Dose: Infused Vancomycin HCl 1,000 mg/ (Sodium Chloride) 250 mls @ 250 mls/hr IV ONCE ONE; Protocol Stop: 12/21/22 13:59 Iron Sucrose (Iron Sucrose Complex 100 Mg/5 Ml Vial) 200 mg IV DAILY [facility] Stop: 12/25/22 09:01 Ondansetron HCl (Ondansetron 4 Mg/2 Ml Vial) 4 mg IV Q6HP PRN PRN Reason: Nausea And Vomiting Ondansetron HCl (Ondansetron 4 Mg Odt Tablet) 4 mg SL Q6HP PRN PRN Reason: Nausea And Vomiting Pantoprazole Sodium (Pantoprazole 40 Mg Tablet) 40 mg PO HS [facility] Last Admin: 12/20/22 20:00 Dose: 40 mg Sodium Chloride (0.9 % Sodium Chloride 10 Ml Syringe) 10 ml IV Q8 [facility] Last Admin: 12/21/22 05:05 Dose: 10 ml Vancomycin HCl (Vancomycin Per Pharmacy) 1 order IV UD [facility]; Protocol A/P Time Spent With Patient Time: Total time spent is greater than 50% in coordination of care (as documented) at patient's floor/unit and/or counseling patient: QUALITY Stroke Symptom Onset Unknown: No VTE Deep Vein Thrombosis/Pulmonary Embolism Present on Admission: No
[2022-12-21] MEDS: IRON SUCROSE COMPLEX 100 MG/5 ML VIAL IV SCH (11:43)
[2022-12-21] MEDS ORDERED: VANCOMYCIN 1,000 MG in 0.9 % SODIUM CHLORIDE 250 ML IV ONE (13:00)
[2022-12-21] MEDS: PANTOPRAZOLE 40 MG TABLET PO SCH (20:32)
[2022-12-21] MEDS: ACETAMINOPHEN 325 MG TABLET PO PRN (20:32)
[2022-12-22] MEDS: PIPERACILLIN SODIUM/TAZOBACTAM 2.25 GM in DEXTROSE 5% IN WATER 50 ML IV SCH ×4 (05:04→23:02)
[2022-12-22] MEDS: 0.9 % SODIUM CHLORIDE 10 ML SYRINGE IV SCH ×3 (05:05→20:42)
[2022-12-22 06:37] LABS: Basophils # (Auto) 0.22 K/mcL (0.00-0.30); Basophils % (Auto) 1.1 % (0.0-2.0); Eosinophils # (Auto) 0.75 K/mcL (0.00-0.70); Eosinophils % (Auto) 3.8 % (0.0-7.0); Hematocrit 27.1 % (40.1-51.0); Hemoglobin 8.2 g/dL (13.7-17.5); Lymphocytes # (Auto) 2.31 K/mcL (1.50-4.80); Lymphocytes % (Auto) 11.8 % (15.5-49.0); Mean Cell Volume 83.1 fL (80.0-100.0); Mean Corpuscular HGB Conc 30.3 g/dL (31.0-36.0); Mean Platelet Volume 12.5 fL (8.8-12.5); Monocytes # (Auto) 5.34 K/mcL (0.10-0.90); Monocytes % (Auto) 27.2 % (1.0-12.0); Neutrophils % (Auto) 49.8 % (38.0-78.0); Platelet Count 213 K/mcL (140-440); RBC 3.26 M/mcL (4.63-6.08); Red Cell Distribution Width 19.4 % (11.5-14.5); WBC 19.7 K/mcL (4.5-11.0)
[2022-12-22 06:59] LABS: ALT/SGPT 17 U/L (<40); AST/SGOT 16 U/L (<40); Albumin 3.1 gm/dL (3.2-5.2); Albumin/Globulin Ratio 0.7 (1.0-2.3); Alkaline Phosphatase 90 U/L (39-117); Bilirubin,Total 0.4 mg/dL (0.1-1.0); Blood Urea Nitrogen 31 mg/dL (8-23); Calcium 8.4 mg/dL (8.6-10.4); Carbon Dioxide 25 mmol/L (22-30); Chloride 96 mmol/L (96-108); Globulin 4.5 gm/dL (2.2-3.7); Glomerular Filtration Rate 30; Glucose 100 mg/dL (70-105)
[2022-12-22] MEDS: FUROSEMIDE 40 MG/4 ML VIAL IV SCH ×2 (07:38→15:28)
[2022-12-22] MEDS ORDERED: POTASSIUM CHLORIDE 20 MEQ TABLET PO ONE (07:42)
[2022-12-22] MEDS: IRON SUCROSE COMPLEX 100 MG/5 ML VIAL IV SCH (09:05)
[2022-12-22] MEDS: AZITHROMYCIN 500 MG in DEXTROSE 5% IN WATER 250 ML IV SCH (09:06)
[2022-12-22 09:13] LABS: Lactate Dehydrogenase 180 U/L (135-225)
[2022-12-22 13:14] LABS: Vancomycin,Random 20.5 ug/mL
--- NOTE | 2022-12-22 15:03 | Internal Med Progress Note ---
SUBJECTIVE Subjective Patient information: Note initiated : 12/22/22 at 3:00 pm Service Date, if different from initiated Date: [] Patient: Roland Middleton a 82 y/o M admitted on 12/20/22 for Heart/ SOB, dispneia. Chief Complaint: [] Additional PMFSH (Level 3 Only): Mr. Middleton is a 82 year old with history of prostate cancer, large B-cell lymphoma, rheumatoid arthritis, long-term use of systemic steroids, chronic anemia, new diagnosis of CHF presented with worsening shortness of breath cough and some brownish sputum. Patient was seen in ER a week ago with shortness of breath, productive cough and some orthopnea he was already on Augmentin and az ithromycin for pneumonia. Patient thinks that his symptoms coincided when he discontinued prednisone. Over the past 5 months he has been slowly tapered off prednisone which she had been taking for several years for rheumatoid arthritis. At that time chest x-ray showed bilateral infiltrate and effusion, Hemoccult was also positive. Patient was diagnosed with pneumonia and CHF, was given IV Lasix and ceftriaxone and was discharged on Lasix and iron supplementation. Patient has continued to get worse, he is short of breath, reports he has to take frequent breaks when ambulating within the household distance which is new for him, he endorses cough and some sputum. No fever or chills. No chest pain or palpitations. On presentation patient was tachypneic with respiratory rate 30, blood pressure stable, sats 100% on room air. Labs showed WBC 24,000 up to 14,000, Hb 7.9, normal electrolytes, POC Cr 2.4 up from 1.7 few days ago, proBNP 6443 down from 64268. Chest x-ray showed worsening infiltrates in both lung bases, moderate consolidation in left lung base with superimposed pleural effusion which has become worse since prior study, alveolar infiltrate in right lower lobe which is also enlarged, small right-sided pleural effusion remains stable.EKG with NSR rate of 70, equivocal axis, SD 140, QRS of 102, QTc of 431, T wave flattening in leads I, aVL, III, aVF, and V6, and absence of ST elevation or depression. Admission was requested. 12/21. Patient reports his breathing is better. He is on room air. WBC improved to 20,000 from 24,000 yesterday. He is tolerating vancomycin and Zosyn. CT chest showed bilateral pleural effusion with compressive atelectasis left greate r than right. Hemoglobin is stable around 8, iron profile demonstrates low iron at 15, TIBC 164 low, transferrin saturation 9 low, ferritin 421 high. He will start IV Venofer today 12/22. Feels better. Breathing is improving. Good urine output. He moved his bowels as well. Leukocytosis is down marginally to 19,000 from 20,000 yesterday. Hemoglobin 8.2. Potassium is low at 3.2 and will be replaced. BNP is 5000 down from 6000 previously. present at bedside. Plan of care discussed in detail Review of system Constitutional: Denies fever or weakness Eyes: Denies eye pain or vision change ENT ED: Denies throat pain, hearing loss or rhinorrhea Cardiovascular: Denies chest pain, dyspnea on exertion, orthopnea or edema Respiratory: Denies shortness of breath or cough Gastrointestinal: Denies abdominal pain, nausea, vomiting, diarrhea, constipation, hematochezia or melena Genitourinary: Denies dysuria, frequency, hematuria or incontinence Musculoskeletal: Denies back pain or myalgia Integumentary: Denies rash or lesions Neurological: Denies headache, weakness, numbness, confusion, abnormal gait or dizziness Psychiatric: Denies anxiety, suicidal thoughts or homicidal thoughts Endocrine: Denies fatigue or polyuria Hematological/Lymphatic: Denies easy bleeding or easy bruising Physical examination General appearance: Alert and awake, appears comfortable Head Head: Present normocephalic; Absent atraumatic Eye Eye: Present PERRL, EOMI and visual decker intact; Absent scleral icterus or nystagmus ENT ENT: Present mucous membranes moist; Absent nasal congestion Neck Neck: Present full ROM; Absent tenderness Chest Chest: Present normal inspection, symmetric chest wall rise and tenderness Respiratory Respiratory: Present reduced air entry in the bases, no respiratory distress, satting well on room air Cardiovascular Cardiovascular: Present regular rate, normal rhythm and questionable systolic murmur over precordium, no peripheral edema Adbominal Abdominal: Present soft and normal bowel sounds; Absent distention or tenderness Rectal Rectal: Present deferred Extremities Extremities: Present normal inspection and full ROM; Absent tenderness Back Back: Present normal inspection and full ROM; Absent tenderness Neurological Neurological: Present alert, oriented X3, CN II-XII intact, normal gait and reflexes normal; Absent motor sensory deficit Psychiatric Psychiatric: Present normal affect and normal mood Skin Skin: Present warm (WNL), dry and normal color Assessment and plan Sepsis, presented with tachypnea respiratory rate 30, leukocytosis of 24,000 and suspected source. Patient started on IV antibiotics, blood cultures obtained Pneumonia, chest x-ray with worsening infiltrates in both lung bases, moderate consolidation in left lung base with superimposed pleural effusion which has become worse since prior study, alveolar infiltrate in right lower lobe which is also enlarged, small right-sided pleural effusion remains stable.CT chest showed bilateral pleural effusion with compressive atelectasis left greater than right. Patient presented with worsening leukocytosis of 24,000 which is now improving on vancomycin and Zosyn. Acute congestive heart failure.CT chest showed bilateral pleural effusion with compressive atelectasis left greater than right. BNP 5000<<6000<<14,000. Continue IV Lasix 40 mg twice daily. Echocardiogram pending Acute respiratory failure. Patient is dyspneic and tachypneic however not hypoxic. Acute on chronic anemia. Hemoglobin is stable around 8, iron profile demonstrates low iron at 15, TIBC 164 low, transferrin saturation 9 low, ferritin 421 high. He will start IV Venofer today. In the past his Hemoccult was positive. Started patient on PPI. Rheumatoid arthritis, continue leflunomide 20 mg daily Long-term use of systemic steroid. Patient had been on prednisone for many years and finished his prednisone taper 2 weeks ago. Large B-cell lymphoma, appears stable Generalized weakness/physical deconditioning. Secondary to above. PT eval DVT prophylaxis with SCDs Full code Total time taken > 50 min Constitutional Vitals: Vital Signs Temp Pulse Resp BP Pulse Ox O2 Del Method 97.2 F 85 22 115/76 97 Room Air 12/22/22 12:00 12/22/22 12:00 12/22/22 12:00 12/22/22 12:00 12/22/22 12:00 12/22/22 12:00 Period Temp Pulse Resp BP Sys/Olson Pulse Ox O2 Del Method O2 Flow Rate Last 24 Hr 97 F-97.6 F 73-88 22-34 109-128/65-80 92-97 Room Air-Room Air Intake and Output 12/22/22 12/22/22 12/22/22 03:59 11:59 19:59 Intake Total 440 1110 450 Output Total 276 200 Balance 164 910 450 Intake & Output: Intake & Output 12/22/22 12/22/22 12/22/22 03:59 11:59 19:59 Intake Total 440 1110 450 Output Total 276 200 Balance 164 910 450 Intake: Nourishment/Supplement quantity 240 240 (ml) IV 50 50 250 Zithromax 500 mg In Dextrose 5% 250 in Water 250 ml @ 250 mls/hr IV Q24H [facility] Rx#:[id number] Zosyn 2.25 gm In Dextrose 5% in 50 50 Water 50 ml @ 100 mls/hr IV Q6H [facility] Rx#:[id number] Oral 150 820 200 Output: Void Amount 275 200 # of times incontinent of urine 1 Other: Meal Nourishment/Supplement Lunch Percent of Meal Consumed 100% 50% Feeding Ability Assist with Tray Set Up Assist with Tray Set Up Nourishment/Supplement name Ensure ensure Urine Appearance Clear Clear Urine Color Yellow Yellow Stool Size Small Small Stool Color Brown Brown Stool Consistency Soft Soft Loose # Voids 1 # Bowel Movements 1 1 OBJ DATA Labs 12/22/22 05:23 12/22/22 05:23 Labs: Abnormal Lab Results 12/22/22 12/22/22 12/22/22 07:55 05:23 05:23 WBC 19.7 H RBC 3.26 L Hgb 8.2 L Hct 27.1 L POC Hct MCH 25.2 L MCHC 30.3 L RDW 19.4 H Immature Gran % (Auto) 6.3 H Lymph % (Auto) 11.8 L Weber % (Auto) 27.2 H Weber # (Auto) 5.34 H Eos # (Auto) 0.75 H Immature Gran # 1.23 H Absolute Neutrophils 9.80 H Potassium 3.2 L POC Anion Gap POC BUN BUN 31 H Creatinine 2.0 H POC Creatinine POC Glucose Calcium 8.4 L POC WB Ioniz Calcium Iron TIBC Transferrin % Sat Ferritin NT-Pro-B Natriuret Pep 5001.0 H Albumin 3.1 L Globulin 4.5 H Albumin/Globulin Ratio 0.7 L Procalcitonin 12/21/22 12/21/22 12/20/22 05:26 05:26 12:20 WBC 20.8 H RBC 3.10 L Hgb 8.0 L Hct 25.7 L POC Hct 28.0 L MCH 25.8 L MCHC RDW 19.5 H Immature Gran % (Auto) 6.0 H Lymph % (Auto) 10.3 L Weber % (Auto) 25.8 H Weber # (Auto) 5.36 H Eos # (Auto) Immature Gran # 1.24 H Absolute Neutrophils 11.25 H Potassium POC Anion Gap 19.0 H POC BUN 34 H BUN 34 H Creatinine 2.0 H POC Creatinine 2.4 H POC Glucose 128 H Calcium 8.4 L POC WB Ioniz Calcium 1.02 L Iron TIBC Transferrin % Sat Ferritin NT-Pro-B Natriuret Pep Albumin 3.1 L Globulin 4.2 H Albumin/Globulin Ratio 0.7 L Procalcitonin 12/20/22 12/20/22 12/20/22 12:18 12:18 12:18 WBC RBC Hgb Hct POC Hct MCH MCHC RDW Immature Gran % (Auto) Lymph % (Auto) Weber % (Auto) Weber # (Auto) Eos # (Auto) Immature Gran # Absolute Neutrophils Potassium POC Anion Gap POC BUN BUN Creatinine POC Creatinine POC Glucose Calcium POC WB Ioniz Calcium Iron 15 L TIBC 164 L Transferrin % Sat 9 L Ferritin 421.5 H NT-Pro-B Natriuret Pep 6443.0 H Albumin Globulin Albumin/Globulin Ratio Procalcitonin 0.25 H 12/20/22 12:18 WBC 24.3 H RBC 3.11 L Hgb 7.9 L Hct 26.2 L POC Hct MCH 25.4 L MCHC 30.2 L RDW 19.6 H Immature Gran % (Auto) 5.1 H Lymph % (Auto) 8.1 L Weber % (Auto) 24.7 H Weber # (Auto) 6.01 H Eos # (Auto) Immature Gran # 1.23 H Absolute Neutrophils 14.36 H Potassium POC Anion Gap POC BUN BUN Creatinine POC Creatinine POC Glucose Calcium POC WB Ioniz Calcium Iron TIBC Transferrin % Sat Ferritin NT-Pro-B Natriuret Pep Albumin Globulin Albumin/Globulin Ratio Procalcitonin Meds: Medications Acetaminophen (Acetaminophen 325 Mg Tablet) 650 mg PO Q6HP PRN; Protocol PRN Reason: Per Pain Protocol/Fever > 101 Last Admin: 12/21/22 20:32 Dose: 650 mg Furosemide (Furosemide 40 Mg/4 Ml Vial) 40 mg IV BIDD [facility] Last Admin: 06/21/23 07:38 Dose: 40 mg Azithromycin 500 mg/ Dextrose 250 mls @ 250 mls/hr IV Q24H [facility]; Protocol Stop: 12/24/22 18:59 Last Infusion: 12/22/22 13:22 Dose: Infused Piperacillin Sod/Tazobactam (Sod 2.25 gm/ Dextrose) 50 mls @ 100 mls/hr IV Q6H [facility] Stop: 12/27/22 17:59 Last Admin: 12/22/22 13:15 Dose: 100 mls/hr Iron Sucrose (Iron Sucrose Complex 100 Mg/5 Ml Vial) 200 mg IV DAILY [facility] Stop: 12/25/22 09:01 Last Admin: 12/22/22 09:05 Dose: 200 mg Ondansetron HCl (Ondansetron 4 Mg/2 Ml Vial) 4 mg IV Q6HP PRN PRN Reason: Nausea And Vomiting Ondansetron HCl (Ondansetron 4 Mg Odt Tablet) 4 mg SL Q6HP PRN PRN Reason: Nausea And Vomiting Pantoprazole Sodium (Pantoprazole 40 Mg Tablet) 40 mg PO HS [facility] Last Admin: 12/21/22 20:32 Dose: 40 mg Sodium Chloride (0.9 % Sodium Chloride 10 Ml Syringe) 10 ml IV Q8 [facility] Last Admin: 12/22/22 13:23 Dose: 10 ml Vancomycin HCl (Vancomycin Per Pharmacy) 1 order IV UD [facility]; Protocol A/P Time Spent With Patient Time: Total time spent is greater than 50% in coordination of care (as documented) at patient's floor/unit and/or counseling patient: QUALITY Stroke Symptom Onset Unknown: No VTE Deep Vein Thrombosis/Pulmonary Embolism Present on Admission: No
[2022-12-22 16:39] LABS: Lactate Dehydrogenase 186 U/L (135-225)
[2022-12-22] MEDS: PANTOPRAZOLE 40 MG TABLET PO SCH (20:42)
[2022-12-22] MEDS: ACETAMINOPHEN 325 MG TABLET PO PRN (20:42)
[2022-12-23] MEDS: 0.9 % SODIUM CHLORIDE 10 ML SYRINGE IV SCH (05:03)
[2022-12-23] MEDS: PIPERACILLIN SODIUM/TAZOBACTAM 2.25 GM in DEXTROSE 5% IN WATER 50 ML IV SCH (05:03)
[2022-12-23 06:53] LABS: Basophils # (Auto) 0.22 K/mcL (0.00-0.30); Basophils % (Auto) 1.2 % (0.0-2.0); Eosinophils # (Auto) 0.64 K/mcL (0.00-0.70); Eosinophils % (Auto) 3.4 % (0.0-7.0); Hematocrit 27.1 % (40.1-51.0); Hemoglobin 8.2 g/dL (13.7-17.5); Lymphocytes # (Auto) 2.12 K/mcL (1.50-4.80); Lymphocytes % (Auto) 11.2 % (15.5-49.0); Mean Cell Volume 81.6 fL (80.0-100.0); Mean Corpuscular HGB Conc 30.3 g/dL (31.0-36.0); Mean Platelet Volume 12.5 fL (8.8-12.5); Monocytes # (Auto) 5.41 K/mcL (0.10-0.90); Monocytes % (Auto) 28.5 % (1.0-12.0); Platelet Count 223 K/mcL (140-440); RBC 3.32 M/mcL (4.63-6.08); Red Cell Distribution Width 19.6 % (11.5-14.5)
[2022-12-23] MEDS: FUROSEMIDE 40 MG/4 ML VIAL IV SCH (07:19)
[2022-12-23 07:20] LABS: ALT/SGPT 14 U/L (<40); AST/SGOT 12 U/L (<40); Albumin/Globulin Ratio 0.7 (1.0-2.3); Alkaline Phosphatase 87 U/L (39-117); Bilirubin,Total 0.4 mg/dL (0.1-1.0); Blood Urea Nitrogen 32 mg/dL (8-23); Calcium 8.8 mg/dL (8.6-10.4); Carbon Dioxide 27 mmol/L (22-30); Chloride 96 mmol/L (96-108); Globulin 4.6 gm/dL (2.2-3.7); Glomerular Filtration Rate 29; Glucose 96 mg/dL (70-105)
[2022-12-23] MEDS: IRON SUCROSE COMPLEX 100 MG/5 ML VIAL IV SCH (08:26)
[2022-12-23] MEDS: AZITHROMYCIN 500 MG in DEXTROSE 5% IN WATER 250 ML IV SCH (08:26)
[2022-12-23] MEDS ORDERED: VANCOMYCIN 1,000 MG in 0.9 % SODIUM CHLORIDE 250 ML IV ONE (09:00)
--- NOTE | 2022-12-23 09:22 | Discharge Summary ---
Discharge Provider Provider IMPORTANT FOLLOW-UP INFORMATION FOR PCP: Patient information: Note initiated : 12/23/22 at 9:22 am Service Date, if different from initiated Date: [] Patient: Roland Middleton 82 y/o M admitted on 12/20/22 for Heart/ SOB, dispneia. Chief Complaint: [] Date of admission: 12/20/22 17:06 Discharge date: 12/23/22 Primary care physician: Leyla Young Consults: 12/20/22 13:48 Consult to Physician [CONS] Stat Comment: Consulting Provider: Monty Bland Reason For Exam: Physician to Consult COURSE Hospital Course Hospital course: Mr. Middleton is a 82 year old with history of prostate cancer, large B-cell lymphoma, rheumatoid arthritis, long-term use of systemic steroids, chronic anemia, new diagnosis of CHF presented with worsening shortness of breath cough and some brownish sputum. Patient was seen in ER a week ago with shortness of breath, productive cough and some orthopnea he was already on Augmentin and azithromycin for pneumonia. Patient thinks that his symptoms coincided when he discontinued prednisone. Over the past 5 months he has been slowly tapered off prednisone which she had been taking for several years for rheumatoid arth ritis. At that time chest x-ray showed bilateral infiltrate and effusion, Hemoccult was also positive. Patient was diagnosed with pneumonia and CHF, was given IV Lasix and ceftriaxone and was discharged on Lasix and iron supplementation. Patient has continued to get worse, he is short of breath, reports he has to take frequent breaks when ambulating within the household distance which is new for him, he endorses cough and some sputum. No fever or chills. No chest pain or palpitations. On presentation patient was tachypneic with respiratory rate 30, blood pressure stable, sats 100% on room air. Labs showed WBC 24,000 up to 14,000, Hb 7.9, normal electrolytes, POC Cr 2.4 up from 1.7 few days ago, proBNP 6443 down from 20038. Chest x-ray showed worsening infiltrates in both lung bases, moderate consolidation in left lung base with superimposed pleural effusion which has become worse since prior study, alveolar infiltrate in right lower lobe which is also enlarged, small right-sided pleural effusion remains stable.EKG with NSR rate of 70, equivocal axis, ME 140, QRS of 102, QTc of 431, T wave flattening in leads I, aVL, III, aVF, and V6, and absence of ST elevation or depression. Admission was requested. 12/21. Patient reports his breathing is better. He is on room air. WBC improved to 20,000 from 24,000 yesterday. He is tolerating vancomycin and Zosyn. CT chest showed bilateral pleural effusion with compressive atelectasis left greater than right. Hemoglobin is stable around 8, iron profile demonstrates low iron at 15, TIBC 164 low, transferrin saturation 9 low, ferritin 421 high. He will start IV Venofer today 12/22. Feels better. Breathing is improving. Good urine output. He moved his bowels as well. Leukocytosis is down marginally to 19,000 from 20,000 yesterday. Hemoglobin 8.2. Potassium is low at 3.2 and will be replaced. BNP is 5000 down from 6000 previously. present at bedside. Plan of care discussed in detail 12/23. Continues to feel better. Patient has chronic leukocytosis however improved from admission. He is not coughing, there is no fever. BNP is trending down to 5000. Procalcitonin persistently low at 0.23. Echocardiogram with EF 44%, mild global hypokinesis of left ventricle. Left and right atrial chambers are normal in size. Mild to moderate mitral regurgitation, no pericardial effusion. Chest x-ray obtained showed improvement in bilateral pleural effusion and infiltrates. Patient will be discharged home on Lasix 40 mg twice daily, BMP to be done in 5 to 7 days and Lasix dose can be adjusted. Recommend follow-up with cardiology. He will complete 7-day course of antibiotics and will be discharged on Augmentin twice daily and azithromycin. Follow-up with PCP within 1 week Physical examination General appearance: Alert and awake, appears comfortable Head Head: Present normocephalic; Absent atraumatic Eye Eye: Present PERRL, EOMI and visual decker intact; Absent scleral icterus or nystagmus ENT ENT: Present mucous membranes moist; Absent nasal congestion Neck Neck: Present full ROM; Absent tenderness Chest Chest: Present normal inspection, symmetric chest wall rise and tenderness Respiratory Respiratory: Present reduced air entry in the bases, no respiratory distress, satting well on room air Cardiovascular Cardiovascular: Present regular rate, normal rhythm systolic murmur over mitral area, no peripheral edema Adbominal Abdominal: Present soft and normal bowel sounds; Absent distention or tenderness Rectal Rectal: Present deferred Extremities Extremities: Present normal inspection and full ROM; Absent tenderness Back Back: Present normal inspection and full ROM; Absent tenderness Neurological Neurological: Present alert, oriented X3, CN II-XII intact, normal gait and reflexes normal; Absent motor sensory deficit Psychiatric Psychiatric: Present normal affect and normal mood Skin Skin: Present warm (WNL), dry and normal color Discharge Diagnoses Sepsis, presented with tachypnea respiratory rate 30, leukocytosis of 24,000 and suspected source. Patient started on IV antibiotics, blood cultures negative to date. Community-acquired pneumonia, initial chest x-ray with worsening infiltrates in both lung bases, moderate consolidation in left lung base with superimposed pleural effusion which has become worse since prior study, alveolar infiltrate in right lower lobe which is also enlarged, small right-sided pleural effusion remains stable.CT chest showed bilateral pleural effusion with compressive atelectasis left greater than right. Patient presented with worsening leukocytosis of 24,000 which improved to 19,000 on vancomycin and Zosyn. Review of previous labs show he has chronic leukocytosis, LDH obtained was normal. His breathing is now back to baseline he is satting well on room air. Repeat procalcitonin is low at 0.23. Repeat chest x-ray shows improvement in bilateral pleural effusion and infiltrate. Patient will be discharged on Augmentin 875 twice daily to complete a 7-day course and azithromycin 500 mg daily to complete a 5-day course. Acute systolic congestive heart failure.CT chest showed bilateral pleural effusion with compressive atelectasis left greater than right. BNP 5000<<6000<<14,000. Received IV Lasix 40 mg twice daily. Echocardiogram with EF 44%, mild global hypokinesis of left ventricle. Left and right atrial chambers are normal in size. Mild to moderate mitral regurgitation, no pericardial effusion. Follow-up chest x-ray chest x-ray obtained showed improvement in bilateral pleural effusion and infiltrates. Patient will be discharged on Lasix 40 mg twice daily, BMP to be done in 5 days to follow-up on electrolytes and renal functions. He is on potassium supplementation 10 mEq daily. Recommend follow-up with PCP in 1 week. Recommend follow-up with cardiology in 2 weeks Acute respiratory failure. Patient is dyspneic and tachypneic however not hypoxic. Resolved Acute on chronic anemia. Hemoglobin is stable around 8, iron profile demonstrates low iron at 15, TIBC 164 low, transferrin saturation 9 low, ferritin 421 high. Received IV Venofer.. In the past his Hemoccult was positive. Started patient on PPI. Will be discharged on p.o. iron supplementation Rheumatoid arthritis, continue leflunomide 20 mg daily Long-term use of systemic steroid. Patient had been on prednisone for many years and finished his prednisone taper 2 weeks ago. Large B-cell lymphoma, appears stable Generalized weakness/physical deconditioning. Secondary to above. PT cleared him for discharge Full code Total time taken > 40 min Discharge diagnosis: CHF, Sepsis, Pneumonia, Time Spent with Patient Time attestation: Total time spent providing and/or coordinating discharge services: Time spent: Greater than 30 minutes EXAM Constitutional Vitals: Temp Pulse Resp BP Pulse Ox O2 Del Method 96.8 F L 82 22 112/77 96 Room Air 12/23/22 03:02 12/23/22 07:58 12/23/22 07:58 12/23/22 07:58 12/23/22 07:58 12/23/22 07:58 Discharge Data Data Completed and Pending Labs on day of discharge: Labs from last 24 hours 12/23/22 12/23/22 12/23/22 05:30 05:23 05:23 WBC 19.0 H RBC 3.32 L Hgb 8.2 L Hct 27.1 L MCV 81.6 MCH 24.7 L MCHC 30.3 L RDW 19.6 H Plt Count 223 MPV 12.5 Immature Gran % (Auto) 6.7 H Neut % (Auto) 49.0 Lymph % (Auto) 11.2 L [place] % (Auto) 28.5 H Eos % (Auto) 3.4 Baso % (Auto) 1.2 Lymph # (Auto) 2.12 [place] # (Auto) 5.41 H Eos # (Auto) 0.64 Baso # (Auto) 0.22 Immature Gran # 1.28 H Absolute Neutrophils 9.31 H Sodium 136 Potassium 3.4 Chloride 96 Carbon Dioxide 27 Anion Gap 13.0 BUN 32 H Creatinine 2.1 H GFR Calculation 29 Glucose 96 Calcium 8.8 Total Bilirubin 0.4 AST 12 ALT 14 Alkaline Phosphatase 87 Lactate Dehydrogenase Total Protein 7.6 Albumin 3.0 L Globulin 4.6 H Albumin/Globulin Ratio 0.7 L Procalcitonin 0.23 H Random Vancomycin 12/23/22 12/22/22 12/22/22 05:22 15:50 12:03 WBC RBC Hgb Hct MCV MCH MCHC RDW Plt Count MPV Immature Gran % (Auto) Neut % (Auto) Lymph % (Auto) [place] % (Auto) Eos % (Auto) Baso % (Auto) Lymph # (Auto) [place] # (Auto) Eos # (Auto) Baso # (Auto) Immature Gran # Absolute Neutrophils Sodium Potassium Chloride Carbon Dioxide Anion Gap BUN Creatinine GFR Calculation Glucose Calcium Total Bilirubin AST ALT Alkaline Phosphatase Lactate Dehydrogenase 186 Total Protein Albumin Globulin Albumin/Globulin Ratio Procalcitonin Random Vancomycin 15.0 20.5 Discharge Plan Patient/Caregiver Discharge Instructions Activity: increase activity as tolerated Diet: Low Sodium (2gm) and Cardiac Instructions: Heart Failure (DC), Community Acquired Pneumonia (GEN) Activity Restrictions/Additional Instructions: Daily weight and if evidence of weight gain seek medical assistance. Recommend follow-up with cardiology as an outpatient. Recommend BMP in 5 to 7 days and results to be faxed to PCP Prescriptions: New pantoprazole 40 mg Tablet,Delayed Release (Dr/Ec) 40 mg PO HS Qty: 30 0RF amoxicillin-pot clavulanate 875-125 mg tablet 1 tab PO BID Qty: 10 0RF furosemide [Lasix] 40 mg tablet 40 mg PO BID Qty: 60 0RF azithromycin 500 mg tablet 500 mg PO QDAY 3 Days Qty: 3 0RF potassium chloride 10 mEq capsule, extended release 10 meq PO QDAY Qty: 30 0RF Continued leflunomide 20 mg tablet 20 mg PO QDAY Qty: 90 0RF [id number] 600 mg calcium- 800 unit-50 mg tablet 1 tab PO QDAY ferrous sulfate 325 mg (65 mg iron) tablet 325 mg PO QDAY Qty: 30 0RF Other Ambulatory Orders: Basic Metabolic Panel (Routine) Timeframe: 5 Days Facility: [facility] - Location: Laboratory Ordered By: Monty Bland Complete Blood Count (Routine) Timeframe: 5 Days Facility: [facility] - Location: Laboratory Ordered By: Monty Bland Follow Up Plan Follow up with: Leyla Young MD [Primary Care Provider] - Patient Disposition: Home, Self-Care Overall status at discharge: patient is back to baseline Discharge Orders: Discharge Order (Routine); Ordered 12/23/22 Ordered By: Monty MCCALL VTE Deep Vein Thrombosis/Pulmonary Embolism Present on Admission: No
--- NOTE | 2022-12-23 09:38 | XRay Report ---
HISTORY: Short of breath dyspnea, follow-up pneumonia and pleural effusions FINDINGS: There is moderate consolidation inferiorly and laterally at the left lung base. Much of this is due to a partially loculated pleural effusion. There is underlying atelectasis or pneumonia. There is a small right-sided pleural effusion at the right costophrenic sulcus and there is a small streaky infiltrate at the right lung base. The infiltrates and pleural effusions have improved a moderate amount since 12/20/22. Patient has mild emphysema in the upper lobes, better seen on the prior chest CT. The heart is not enlarged. There is no congestive heart failure. IMPRESSION: Improving bilateral pleural effusions and improving bibasilar infiltrates Interpreted and Authenticated by: Shaka Fall 12/23/22
--- NOTE | 2022-12-23 14:38 | EKG ---
[facility] Test Date: 2022-12-20 Pat Name: Roland Middleton Department: ED Room: Gender: Male [employer]: sb : 1940 Requested By: Shoaib Owens Order Number: [id number] Reading MD: Dallas Fall M.D. Measurements Intervals Hoyt Rate: 70 P: 28 ID: [id number] QRS: -10 QRSD: 102 T: 87 QT: 399 QTc: 431 Interpretive Statements Sinus rhythm Low voltage, extremity leads Borderline repolarization abnormality Electronically Signed On 12-23-2022 14:38:01 PDT by Dallas Fall M.D. /[id number]
[2022-12-28 10:41] LABS: Basophils # (Auto) 0.22 K/mcL (0.00-0.30); Basophils % (Auto) 1.3 % (0.0-2.0); Eosinophils # (Auto) 0.24 K/mcL (0.00-0.70); Eosinophils % (Auto) 1.4 % (0.0-7.0); Hematocrit 32.9 % (40.1-51.0); Hemoglobin 9.7 g/dL (13.7-17.5); Lymphocytes # (Auto) 2.83 K/mcL (1.50-4.80); Lymphocytes % (Auto) 16.6 % (15.5-49.0); Mean Corpuscular HGB Conc 29.5 g/dL (31.0-36.0); Mean Platelet Volume 12.9 fL (8.8-12.5); Monocytes # (Auto) 4.23 K/mcL (0.10-0.90); Monocytes % (Auto) 24.9 % (1.0-12.0); Neutrophils % (Auto) 46.7 % (38.0-78.0); Platelet Count 240 K/mcL (140-440); RBC 3.74 M/mcL (4.63-6.08); Red Cell Distribution Width 20.7 % (11.5-14.5)
[2022-12-28 14:35] LABS: Blood Urea Nitrogen 43 mg/dL (8-23); Calcium 9.5 mg/dL (8.6-10.4); Carbon Dioxide 23 mmol/L (22-30); Chloride 97 mmol/L (96-108); Glomerular Filtration Rate 27; Glucose 121 mg/dL (70-105)
== END 2022-12-23 13:40 | disposition home or self-care (01) | DRG 871 ==
LOC: ED 11:29 → MEDSUR 17:06
PROVIDERS: ADMIT Internal Medicine; ATTEND Internal Medicine